=== PATIENT | male | born 1965 | race Caucasian/White ===

== ENCOUNTER 2022-01-04 15:26 | Emergency (ER) | payer OTHER, SELFPAY ==
[2022-01-04 16:32] VITALS: BP 140/81; PULSE 75; RESP 16; TEMP 36.9; O2SAT 96; BMI 23.5
[2022-01-04 16:49] LABS: MANUAL DIFF FLAG NO
[2022-01-04 17:07] LABS: Alanine Aminotransferase 33 U/L (0-40); Albumin Level 4.3 g/dL (3.5-5.0); Alkaline Phosphatase 65 U/L (39-117); Anion Gap 15 (12-20); Aspartate Amino Transferase 23 U/L (5-37); Bilirubin Direct 0.3 mg/dL (0.0-0.5); Bilirubin Total 0.7 mg/dL (0.0-1.0); Blood Urea Nitrogen 16 mg/dL (9-16); Carbon Dioxide 22 mmol/L (22-29); Chloride 107 mmol/L (96-108); Creatinine Clr Calc Pharmacy 99.6; Estimated Glomerular Filt Rate > 60; Glucose Random 109 mg/dL (60-115); Lipase 44 U/L (8-78); Potassium 4.1 mmol/L (3.3-5.1); Sodium 140 mmol/L (135-145); Total Protein 6.9 g/dL (6.5-8.0)
[2022-01-04 17:12] LABS: Basophils Absolute Auto 0.1 X10*3/uL (0.0-0.2); Basophils Percent Auto 0.7 % (0-2); Eosinophils Absolute Auto 0.3 X10*3/uL (0.0-0.4); Eosinophils Percent Auto 3.6 % (0-4); Hematocrit 43.8 % (42.0-52.0); Imm Gran Abs Auto 0.08 X10*3/uL (0.00-0.03); Imm Gran Pct Auto 0.8 % (0.0-0.4); Lymphocytes Absolute Auto 2.5 X10*3/uL (1.2-4.9); Lymphocytes Percent Auto 25.9 % (20-40); Mean Corpuscular HGB Conc 34.2 g/dl (31.0-36.0); Mean Corpuscular Hemoglobin 29.1 pg (27.0-33.0); Mean Platelet Volume 9.9 fL (9.4-12.4); Monocytes Absolute Auto 0.9 X10*3/uL (0.1-1.2); Monocytes Percent Auto 9.2 % (2-11); Neutrophils Absolute Auto 5.7 x10*3/uL (2.0-8.3); Neutrophils Percent Auto 59.8 % (45-73); Platelet Count 220 X10*3/uL (160-400); Red Blood Count 5.15 X10*6/uL (4.60-5.80); Red Cell Distribution Width 12.4 % (11.0-16.0); White Blood Count 9.5 X10*3/uL (4.8-10.8)
== END 2022-01-05 02:25 | disposition left against medical advice (07) ==
PROVIDERS: Emergency Provider Emergency Medicine; PCP Internal Medicine
DX: R10.9 Unspecified abdominal pain (principal); R11.0 Nausea
CPT/HCPCS: 36415; 80053; 82248; 83690; 85025; 99281; 99283

== ENCOUNTER 2022-01-07 08:49 | Emergency (ER) | payer OTHER, SELFPAY ==
[2022-01-07 08:59] VITALS: BP 141/82; PULSE 69; RESP 18; TEMP 36.8; O2SAT 98; BMI 21.2
[2022-01-07 09:16] LABS: MANUAL DIFF FLAG NO
[2022-01-07 09:17] LABS: Basophils Absolute Auto 0.1 X10*3/uL (0.0-0.2); Basophils Percent Auto 0.6 % (0-2); Eosinophils Absolute Auto 0.4 X10*3/uL (0.0-0.4); Eosinophils Percent Auto 5.3 % (0-4); Hematocrit 42.6 % (42.0-52.0); Hemoglobin 14.3 g/dl (14.0-18.0); Imm Gran Abs Auto 0.02 X10*3/uL (0.00-0.03); Imm Gran Pct Auto 0.3 % (0.0-0.4); Lymphocytes Absolute Auto 3.2 X10*3/uL (1.2-4.9); Lymphocytes Percent Auto 41.3 % (20-40); Mean Corpuscular HGB Conc 33.6 g/dl (31.0-36.0); Mean Corpuscular Hemoglobin 28.2 pg (27.0-33.0); Mean Platelet Volume 9.7 fL (9.4-12.4); Monocytes Absolute Auto 0.8 X10*3/uL (0.1-1.2); Monocytes Percent Auto 10.4 % (2-11); Neutrophils Absolute Auto 3.2 x10*3/uL (2.0-8.3); Neutrophils Percent Auto 42.1 % (45-73); Platelet Count 205 X10*3/uL (160-400); Red Blood Count 5.07 X10*6/uL (4.60-5.80); Red Cell Distribution Width 12.3 % (11.0-16.0); White Blood Count 7.7 X10*3/uL (4.8-10.8)
[2022-01-07 09:31] LABS: Anion Gap 15 (12-20); Blood Urea Nitrogen 13 mg/dL (9-16); Calcium 9.1 mg/dL (8.4-10.2); Carbon Dioxide 23 mmol/L (22-29); Chloride 109 mmol/L (96-108); Creatinine Clr Calc Pharmacy 90.3; Estimated Glomerular Filt Rate > 60; Glucose Random 103 mg/dL (60-115); Potassium 4.1 mmol/L (3.3-5.1); Sodium 143 mmol/L (135-145)
[2022-01-07 10:11] LABS: Alanine Aminotransferase 28 U/L (0-40); Albumin Level 4.3 g/dL (3.5-5.0); Alkaline Phosphatase 60 U/L (39-117); Aspartate Amino Transferase 23 U/L (5-37); Bilirubin Direct 0.2 mg/dL (0.0-0.5); Bilirubin Total 0.7 mg/dL (0.0-1.0); Lipase 33 U/L (8-78); Total Protein 6.9 g/dL (6.5-8.0)
--- NOTE | 2022-01-07 11:12 | ED_ITS ---
HPI - General Adult General Chief complaint: Abdominal Pain Stated complaint: stomach pains Time Seen by Provider: 01/07/22 09:39 Source: patient Mode of arrival: ambulatory Limitations: no limitations History of Present Illness HPI narrative: Patient is a 56 year old male presenting to the emergency department today with epigastric pain. Patient states that when he is sitting up or standing, he feels fine. Patient states that when he lays down, he feels this burning come up from his abdomen and esophagus and then he has to sit up and burp. Patient states that sometimes when he has to burp, he vomits as well. Patient denies any current dizziness, lightheadedness, abdominal pain, nausea, vomiting, fever, chills, blurry vision, double vision, loss of vision, chest pain, difficulty breathing, shortness of breath, back pain, night sweats, pain with urination, increased urinary frequency, increased urinary urgency, blood in his urine or stool, syncope or a near syncopal episode, recent trauma or falls, bowel incontinence, bladder incontinence, bowel retention, bladder retention, or any other complaints at this time. Onset (ago): week(s) Severity: mild Severity scale (1-10): 2 Relieving factors: none Exacerbating factors: none Associated symptoms: nausea/vomiting Treatments prior to arrival: none Related Data Previous Rx's Medication Instructions Recorded pantoprazole 40 mg granules 40 mg PO DAILY #30 ea 01/07/22 delayed-release for susp in packet (Protonix) Allergies Allergy/AdvReac Type Severity Reaction Status Date / Time No Known Allergies Allergy Unverified 12/29/19 17:17 Review of Systems Constitutional: Constitutional: Reports no additional constitutional complaints, Denies chills, Denies fever(s) and Denies night sweats Eyes: Eyes: Reports no additional eye complaints, Denies blurry vision, Denies change in vision, Denies diplopia, Denies eye discharge, Denies loss of vision and Denies eye pain ENT: Denies dizziness Cardiovascular: Cardiovascular: Reports no additional cardiovascular complaints, Denies chest pain, Denies lightheadedness, Denies Loss of Consciousness and Denies dyspnea Respiratory: Respiratory: Reports no additional respiratory complaints and Denies dyspnea Gastrointestinal: Gastrointestinal: Reports no additional gastrointestinal complaints, Reports abdominal pain (epigastric but only when laying down), Denies melena, Denies hematochezia, Denies change in bowel habits, Denies change in stool character, Reports nausea and Reports vomiting Genitourinary: Genitourinary: Reports no additional male genitourinary complaints, Denies hematuria, Denies oliguria, Denies difficulty urinating, Denies dysuria, Denies urinary frequency, Denies urinary hesitancy, Denies uri nary incontinence and Denies urinary urgency Musculoskeletal: Musculoskeletal: Reports no additional musculoskeletal complaints, Denies numbness and Denies tingling Neurologic: Denies dizziness, Denies loss of vision, Denies numbness and Denies tingling Psychiatric: Psychiatric: Reports no additional psychiatric complaints Endocrine: Endocrine: Reports no additional endocrine complaints Hematologic/Lymphatic: Hematologic/Lymphatic: Reports no additional hematologic/lymphatic complaints Allergic/Immunologic: Allergic/Immunologic: Reports no additional allergic/immunologic complaints [facility] Past Medical History Attestation statement: The following information was validated with the patient. Source: old records reviewed Social History Social History Advance Directives: No Physical Exam ED Vital Signs: Vital Signs - 24 hr 01/07/22 08:59 Temperature 98.2 F Pulse Rate 69 Respiratory Rate 18 Blood Pressure 141/82 H Pulse Oximetry 98 Oxygen Delivery Method Room Air BMI result Body Mass Index 21.2 Const General: cooperative, no acute distress, alert and awake Nutritional Appearance: well nourished Orientation/consciousness: patient oriented x3 Limitations: no limitations [facility] Head: Yes normal to inspection and Yes atraumatic Ears: hearing grossly normal bilaterally and external ears normal General nose exam: Normal external nose present, no nasal discharge noted and no epistaxis Face and sinus: Yes normal facial exam, No abrasion and No laceration Mouth: Normal oral and palatal mucosa present, no drooling and no muffled voice Eyes General: appearance normal, both eyes and all related structures Periorbital: periorbital findings normal Eyelids: Yes eyelids normal Conjunctivae: conjunctivae normal Pupils: Equal, round and reactive pupils present EOM: EOMs intact bilaterally Neck Neck: Yes normal visual inspection, Yes full ROM and Yes no lymphadenopathy Chest Chest palpation & inspection: normal inspection of the chest Resp Effort & Inspection: normal respiratory effort and able to speak in complete sentences Auscultation: clear to auscultation bilaterally Cardio Rate: regular rate Rhythm: regular rhythm GI Inspection: Yes normal to inspection Palpation (GI): Soft to palpation, not firm, nontender and no guarding Neuro General: patient oriented x3 and moves all extremities Cranial nerves: Yes Equal, round and reactive pupils present Cognition (Neuro): normal cognition Motor exam (neuro): 5/5 motor strength present throughout Sensory Exam: Normal double simultaneous stimulation for sensation Coordination: [id number] test normal Extrem General: Yes normal to inspection, Yes full ROM and Yes capillary refill normal Psych Appearance: grossly normal Mental Status: mental status grossly normal Affect: normal affect Attitude: cooperative Thought process: Normal thought process present Thought content: Normal thought content present Insight: Good insight present (Psych) Medical Decision Making MDM Narrative Medical decision making narrative: Patient is a 56 year old male presenting to the emergency department today with epigastric pain. Patient's physical exam was unremarkable. Patient's blood work was unremarkable. Patient's clinical presentation is most consistent with GERD. I explained my physical exam findings as well as all test results to the patient. I answered all questions asked by the patient. I stressed the importance of the patient taking his medication as prescribed. I stressed the importance of the patient following up with his primary care provider and a GI specialist. I stressed the importance of the patient returning to the emergency department immediately if his symptoms were to worsen or if he were to develop any dizziness, shortness of breath, difficulty breathing, chest pain, blurry vision, loss of vision, nausea, vomiting, abdominal pain, fever, chills, back pain, or any other complaints. Patient verbalized agreement and understanding with this treatment plan and discharge. Medical Records Medical records reviewed: Yes I reviewed the patient's medical records. Lab Data Lab results reviewed: Yes I reviewed the patient's lab results. Result diagrams: 01/07/22 09:12 01/07/22 09:12 Labs: Lab Results 01/07/22 01/07/22 Range/Units 09:12 09:12 WBC 7.7 (4.8-10.8) X10*3/uL RBC 5.07 (4.60-5.80) X10*6/uL Hgb 14.3 (14.0-18.0) g/dl Hct 42.6 (42.0-52.0) % MCV 84.0 (80.0-98.0) fL MCH 28.2 (27.0-33.0) pg MCHC 33.6 (31.0-36.0) g/dl RDW 12.3 (11.0-16.0) % Plt Count 205 (160-400) X10*3/uL MPV 9.7 (9.4-12.4) fL Immature Gran % (Auto) 0.3 (0.0-0.4) % Neut % (Auto) 42.1 L (45-73) % Lymph % (Auto) 41.3 H (20-40) % [place] % (Auto) 10.4 (2-11) % Eos % (Auto) 5.3 H (0-4) % Baso % (Auto) 0.6 (0-2) % Lymph # (Auto) 3.2 (1.2-4.9) X10*3/uL [place] # (Auto) 0.8 (0.1-1.2) X10*3/uL Eos # (Auto) 0.4 (0.0-0.4) X10*3/uL Baso # (Auto) 0.1 (0.0-0.2) X10*3/uL Abs Immat Gran (auto) 0.02 (0.00-0.03) X10*3/uL Absolute Neuts (auto) 3.2 (2.0-8.3) x10*3/uL Absolute Nucleated RBC 0.000 (0.0-0.012) X10*3/uL Nucleated RBC % (auto) 0.0 (0.0-0.2) /100WBC Sodium 143 (135-145) mmol/L Potassium 4.1 (3.3-5.1) mmol/L Chloride 109 H (96-108) mmol/L Carbon Dioxide 23 (22-29) mmol/L Anion Gap 15 (12-20) BUN 13 (9-16) mg/dL Creatinine 0.83 (0.5-1.4) mg/dL Estim Creat Clear Calc 90.3 Estimated GFR > 60 Random Glucose 103 (60-115) mg/dL Calcium 9.1 (8.4-10.2) mg/dL Magnesium 2.0 (1.6-2.6) mg/dL Total Bilirubin 0.7 (0.0-1.0) mg/dL Direct Bilirubin 0.2 (0.0-0.5) mg/dL AST 23 (5-37) U/L ALT 28 (0-40) U/L Alkaline Phosphatase 60 (39-117) U/L Total Protein 6.9 (6.5-8.0) g/dL Albumin 4.3 (3.5-5.0) g/dL Lipase 33 (8-78) U/L Discharge Plan Discharge Clinical Impression: GERD (gastroesophageal reflux disease) Patient Disposition: Home, Self-Care Instructions: Gastroesophageal Reflux Disease (ED) Additional Instructions: Follow up with your primary care provider and a GI specialist. Return to the emergency department immediately if your symptoms worsen or if you develop any dizziness, shortness of breath, difficulty breathing, chest pain, blurry vision, loss of vision, nausea, vomiting, abdominal pain, fever, chills, back pain, or any other complaints. Prescriptions: New pantoprazole [Protonix] [address] for susp in packet 40 mg PO DAILY Qty: 30 0RF Referrals: [facility] [place] [facility] [Provider Group] (Call to establish and follow up with a GI specialist. ) Doug Hitchcock PA [Primary Care Provider] - Interventions: ED Discharge Assessment Last Done: 01/07/22 12:06 Discharge Date/Time: 01/07/22 12:07 Print Language: [place]
[2022-01-07] MEDS: Magnesium Hydrox/Alum Hydrox 30 ML ORAL.SUSP 15 ML PO (12:01)
[2022-01-07] MEDS: Omeprazole 20 MG CAPSULE.DR PO (12:01)
== END 2022-01-07 12:07 | disposition home or self-care (01) ==
PROVIDERS: Physician Assistant Medical; Emergency Provider Emergency Medicine; PCP Physician Assistant Medical
DX: K21.9 Gastro-esophageal reflux disease without esophagitis (principal); R10.13 Epigastric pain; Z79.899 Other long term (current) drug therapy
CPT/HCPCS: 36415; 80048; 80076; 83690; 83735; 85025; 99282; 99283

== ENCOUNTER 2023-04-21 14:42 | Inpatient (IN) | payer OTHER, SELFPAY ==
--- NOTE | ~2023-04-21 | MR_ITS ---
EXAMINATION: MR ABDOMEN WITHOUT AND WITH CONTRAST CLINICAL INFORMATION: Duodenal ulcer. COMPARISON: CT abdomen/pelvis 04/21/2023 TECHNIQUE: MR abdomen was performed without and with use of 6 mL intravenous Gadavist gadolinium contrast. Postcontrast images are performed in multiphase dynamic sequences. Imaging was performed in 3 planes. FINDINGS: LUNG BASES: No pleural or pericardial effusion. LIVER, GALLBLADDER, AND BILIARY TREE: The liver demonstrates decreased signal on opposed phase images. There is geographic fatty infiltration in the periportal region and along the falciform ligament that demonstrates signal loss on opposed phase images. No biliary ductal dilatation is present. The gallbladder is contracted. PANCREAS: Subtle edema in the head of the pancreas. No ductal dilatation. No peripancreatic fluid collection. SPLEEN: Not enlarged. ADRENAL GLANDS: No adrenal mass. KIDNEYS AND URETERS: The kidneys are symmetric in size and enhancement. No hydronephrosis. No perinephric stranding. GASTROINTESTINAL TRACT: Gastric distention. There is marked wall thickening of the duodenal bulb with mucosal enhancement and luminal narrowing. The ampulla appears edematous. ABDOMINAL WALL: No significant hernia is appreciated. LYMPH NODES: No bulky lymphadenopathy. VASCULAR: Normal caliber abdominal aorta. MR/MR abdomen wo/w con IMPRESSION: Marked wall thickening of the duodenal bulb with submucosal edema and mucosal enhancement. The ampulla appears edematous. There is edema in the head of the pancreas possibly on a reactive basis. Hepatic steatosis.
--- NOTE | ~2023-04-21 | CT_ITS ---
EXAMINATION: CT ABDOMEN AND PELVIS WITH CONTRAST CLINICAL INFORMATION: GI bleed. Anemia. Weight loss. COMPARISON: None available. TECHNIQUE: Multidetector volumetric images were obtained from the superior aspect of the liver through the pubic symphysis following administration 85 mL of Omnipaque 350 intravenous contrast as well as oral contrast material. Sagittal and coronal reformatted images were obtained on the technologist's workstation. Oral contrast: No This CT examination was performed using dose optimization techniques as appropriate, variously including the following: *Automated exposure control *Adjustment of mA and/or kV according to patient size (this includes techniques or standardized protocols for targeted exams where dose is matched to indication/reason for exam; i.e. extremities or head) *Use of iterative reconstruction technique DLP: 380 mGy-cm FINDINGS: LUNG BASES: The visualized lung bases are unremarkable. LIVER, GALLBLADDER, AND BILIARY TREE: Within the hepatic parenchyma around the inferior aspect of the falciform ligament and within the hepatic parenchyma around the adjacent left portal vein and portal bifurcation, there is a region of irregular hypoattenuating pancreatic parenchyma which is of uncertain etiology. This measures up to 5.5 cm in diameter and does also extend laterally adjacent to the right main portal vein to a lesser extent. No separate hepatic lesions are identified. Liver is normal in size and contour. The gallbladder is unremarkable with no evidence of radiopaque gallstones, gallbladder wall thickening, or obvious pericholecystic inflammatory changes. PANCREAS: The thickened gastric/proximal duodenal soft tissue produces mild mass effect upon the pancreatic head. Pancreas is otherwise normal in appearance. No ductal dilatation. SPLEEN: Unremarkable. ADRENAL GLANDS: Unremarkable. KIDNEYS AND URETERS: The kidneys are normal in size, shape, and attenuation. No hydronephrosis, hydroureter, or calculi seen. No perinephric stranding. BLADDER: Unremarkable. GASTROINTESTINAL TRACT: There is marked wall thickening at the gastric pylorus with a possible focal ulceration at its lateral margin containing oral contrast material. No extraluminal gas or fluid collections are identified. This wall thickening likely extends into the the duodenal bulb. There is mild surrounding fat stranding. The alignment is otherwise normal in appearance. The small bowel and colon are normal in caliber. Moderate amount of stool throughout the colon. Appendix is normal. No intraperitoneal free fluid or free air. ABDOMINAL WALL: No significant hernia is appreciated. LYMPH NODES: Normal. VASCULAR: Calcific atherosclerosis is present in the abdominal aorta and iliac arteries. No aneurysmal dilatation. PELVIC VISCERA: Unremarkable. OSSEOUS STRUCTURES: Mild degenerative disc disease in the lower lumbar spine. Bilateral chronic L5 pars defects with minimal anterolisthesis of L5 on S1. CT/CT abdomen pelvis w IV con IMPRESSION: 1. Marked wall thickening at the gastric pylorus and duodenal bulb with a possible focal ulceration at the lateral margin of the gastric pylorus. No extraluminal gas or surrounding fluid collections are identified. Consider correlation with endoscopy. 2. A 5.5 cm region of irregular hypoattenuating parenchyma in the left hepatic lobe around the portal vein and portal bifurcation. This is of uncertain etiology, potentially due to focal fatty infiltration. However, an infiltrative lesion is also on the differential, particularly given the proximity to the abnormality at the gastric antrum. Consider further assessment with MRI of the liver with and without contrast.. 3. Moderate amount of stool throughout the colon. 4. Bilateral chronic L5 pars defects with minimal anterolisthesis of L5 on S1. Fleischner guidelines were followed.
[2023-04-21 15:52] VITALS: BP 99/70; PULSE 84; RESP 16; TEMP 36.8; O2SAT 100; BMI 19.8
--- NOTE | 2023-04-21 16:00 | ED_ITS ---
HPI - GI Bleed General Chief complaint: GI Bleed Stated complaint: COVID + Gastrophoresis Anemic Time Seen by Provider: 04/21/23 17:38 Source: patient and family Mode of arrival: ambulatory Limitations: no limitations History of Present Illness HPI Narrative: Patient comes to the emergency room complaining of a low hemoglobin. Patient states that patient has been having epigastric pain, black stool for a month, feeling fatigue, shortness of breath with exertion, lightheadedness, no chest pain and no syncopal episodes. Patient states that he went to see his primary care physician, a urea breath test was ordered which was positive. Patient was informed about his results less than a week ago. Patient has not been started on treatment. Patient states that he was told a few days ago that his hemoglobin was low and he was recommended for him to come to the emergency room. Patient states that when he turned 51 he had a colonoscopy. Patient concerned that in the last 2-3 months he has had a 20 lb weight loss. Patient states that he is not taking any iron or Pepto-Bismol. Patient denies any abdominal pain, no nausea vomiting or diarrhea. Related Data Previous Rx's Medication Instructions Recorded pantoprazole 40 mg granules 40 mg PO DAILY #30 ea 01/07/22 delayed-release for susp in packet (Protonix) Allergies Allergy/AdvReac Type Severity Reaction Status Date / Time No Known Allergies Allergy Verified 04/21/23 20:31 Review of Systems 2 Review of Systems: Constitutional : No Weight loss, No Fever, No Chills, No Night Sweats, complaining of fatigue ENT/Mouth : No Hearing loss, No Ear Pain, No Nasal Congestion, No Sinus Pain, No Hoarseness, No sore throat, No Rhinorrhea, No Swallowing Difficulty Eyes: No Eye Pain, No Swelling, No Redness, No Foreign Body, No Discharge, No Vision Changes Cardiovascular : No Chest Pain, No SOB, No Dyspnea on Exertion, No Orthopnea, No Edema, No Palpitations Respiratory : No Cough, No Sputum, No Wheezing, No Smoke Exposure, No Dyspnea Gastrointestinal : No Nausea, No Vomiting, No Diarrhea, No Constipation, No abdominal Pain, complaining of black stool for 1 month Genitourinary : no irregular bleeding, No Dysuria, No Urinary Frequency, No Hematuria, No Urinary Incontinence, No Urgency, No Flank Pain, No Urinary Flow Changes, No Hesitancy Musculoskeletal : No joint pain, No Myalgias, No Joint Swelling Skin : No Skin Lesions, No rash Neuro : No Weakness, No Numbness, No Paresthesias, No Loss of Consciousness, No Dizziness, No Headache Psych : No Anxiety/Panic, No Depression, No SI/HI/AH/VH, No Social Issues, Heme/Lymph: No Bruising, No Bleeding,No Lymphadenopathy Endocrine : No Polyuria, No Polydipsia, No Temperature Intolerance PMFSH Past Medical History Onset Date is defined in the Problem List Problems that require an onset date and time if occurred within 24 hrs of arrival to the ED Aortic Dissection and Rupture; Neurologic impairment; Cardiopulmonary Arrest; Endotracheal Intubation; Insertion or Replacement of Mechanical Circulatory Assist Device Medical History (Updated 04/21/23 @ 20:29 by Mady Mendieta MD) H. pylori infection Social History Social History Alcohol intake: current Alcohol intake frequency: holidays/special occasions only Smoked in Last 30 Days: Yes Use of substances other than those prescribed or required for medical reasons: No Advance Directives: No Advance Directives Information Provided: No Physical Exam 2 Vital Signs: Vital Signs: Last Vital Signs Temp 98.0 F 04/21/23 20:24 Pulse 81 04/21/23 20:24 Resp 14 04/21/23 20:24 BP 107/63 04/21/23 20:24 Pulse Ox 98 04/21/23 19:20 O2 Del Method Room Air 04/21/23 19:20 BMI result Body Mass Index 19.8 Const: Other: Appearance: Alert. Oriented X3. No acute distress. Eyes: Pupils equal, round and reactive to light. ENT: Pharynx normal. Neck: Normal inspection. Neck supple. No lymph nodes noted. No crepitus CVS: Normal heart rate and rhythm. Pulses normal. Normal S1 and S2 Respiratory: No respiratory distress. Breath sounds normal. No Wheezing. No rales Abdomen: Soft and nontender. No rigidity. No distention. Skin: Skin warm and dry. Pale skin color. Normal skin turgor. Extremities: No lower extremity edema. No Lacerations. No Rash Neuro: Oriented X 3. No motor deficit. No sensory deficit. Moving all extremities. No slurred speech. CN 2 through 12 grossly intact Psych: calm, cooperative, normal affect Course Course Course Narrative: RmCandelaria; 57-year-old male known COVID positive presents to ED rule out GI bleed. Patient having black stool for a long time feeling fatigued. Patient not on blood thinners. Labs occult stool positive. Charge nurse made aware Medications Administered Discontinued Medications Generic Name Dose Route Start Last Admin Trade Name Scotq PRN Reason Stop Dose Admin Bismuth Subsalicylate 1,048 mg 04/21/23 18:31 04/21/23 19:32 Bismuth Subsalicylate 262 Mg Tablet PO 04/21/23 18:32 1,048 mg ONCE ONE Administration Doxycycline Monohydrate 100 mg 04/21/23 18:35 04/21/23 18:47 Doxycycline Monohydrate 100 Mg Capsule PO 04/21/23 18:36 100 mg ONCE ONE Administration Famotidine 20 mg 04/21/23 18:31 04/21/23 18:46 Famotidine 20 Mg Tablet PO 04/21/23 18:32 20 mg ONCE ONE Administration Sodium Chloride 100 mls @ 100 mls/hr 04/21/23 17:57 04/21/23 20:16 Ns IV 04/21/23 18:56 100 mls/hr ONCE ONE Administration Metronidazole 250 mg 04/21/23 18:31 04/21/23 19:32 Metronidazole 250 Mg Tablet PO 04/21/23 18:32 250 mg ONCE ONE Administration Medical Decision Making Medical Decision Making [facility] Narrative: -my interpretation of labs: Patient's hemoglobin and hematocrit are low. Patient's hemoglobin baseline is approximately 14.5. -given patient's symptoms and hemoglobin level, I discussed with the patient that he would benefit from a blood transfusion. Patient has never received blood. I thoroughly discussed with the patient the risks versus benefits of a blood transfusion. Patient is agreeable to go ahead with the blood transfusion. Patient signed the consent. -I discussed the patient with Dr. Alatorre from Gastroenterology, CT scan with p.o. and IV contrast recommended, patient to be admitted for upper endoscopy and colonoscopy -I discussed the patient with our hospitalist Dr. Rebolledo, patient being admitted Differential Diagnosis Differential Diagnoses: The differential diagnosis associated with the presentation includes (Anemia, upper GI bleed, lower GI bleed, GI malignancy) Admission/Observation Consideration of admission/observation: Escalation of care including admission/observation considered Consult Healthcare Provider Management of the patient was discussed with: Hospitalist and Project Buyer Lab Data MDM Lab Attestation statement: I reviewed the patient's lab results. 04/21/23 16:07 04/21/23 16:07 Labs: Lab Results 04/21/23 04/21/23 Range/Units 16:07 18:21 WBC 8.1 (4.8-10.8) X10*3/uL RBC 3.77 L D (4.60-5.80) X10*6/uL Hgb 7.5 L D (14.0-18.0) g/dl Hct 27.0 L D (42.0-52.0) % MCV 71.6 L (80.0-98.0) fL MCH 19.9 L (27.0-33.0) pg MCHC 27.8 L (31.0-36.0) g/dl RDW 15.7 (11.0-16.0) % Plt Count 318 D (160-400) X10*3/uL MPV 8.4 L (9.4-12.4) fL Immature Gran % (Auto) 0.2 (0.0-0.4) % Neut % (Auto) 70.1 (45-73) % Lymph % (Auto) 16.3 L (20-40) % [place] % (Auto) 9.7 (2-11) % Eos % (Auto) 3.1 (0-4) % Baso % (Auto) 0.6 (0-2) % Lymph # (Auto) 1.3 (1.2-4.9) X10*3/uL [place] # (Auto) 0.8 (0.1-1.2) X10*3/uL Eos # (Auto) 0.3 (0.0-0.4) X10*3/uL Baso # (Auto) 0.1 (0.0-0.2) X10*3/uL Abs Immat Gran (auto) 0.02 (0.00-0.03) X10*3/uL Absolute Neuts (auto) 5.7 (2.0-8.3) x10*3/uL Absolute Nucleated RBC 0.000 (0.0-0.012) X10*3/uL Nucleated RBC % (auto) 0.0 (0.0-0.2) /100WBC PT 11.9 (11.1-13.3) SEC INR 1.0 (0.9-1.1) APTT 26.8 (26.0-36.4) SEC Sodium 143 (135-145) mmol/L Potassium 4.5 (3.3-5.1) mmol/L Chloride 109 H (96-108) mmol/L Carbon Dioxide 28 (22-29) mmol/L Anion Gap 11 L (12-20) BUN 13 (9-16) mg/dL Creatinine 0.86 (0.5-1.4) mg/dL Estim Creat Clear Calc 79.9 Estimated GFR > 60 Random Glucose 117 H (60-115) mg/dL Calcium 9.2 (8.4-10.2) mg/dL Total Bilirubin 0.3 (0.0-1.0) mg/dL AST 14 (5-37) U/L ALT 12 (0-40) U/L Alkaline Phosphatase 64 (39-117) U/L Total Protein 6.6 (6.5-8.0) g/dL Albumin 3.6 (3.5-5.0) g/dL Stool Occult Blood NEGATIVE (NEGATIVE) COVID-19 (CLAIRE) Positive A (Negative) COVID-19 Clin Com See Note Influenza Type A (LIZZY) Negative (Negative) Influenza Type B (LIZZY) Negative (Negative) Influenza A & B Note See Note Blood Type A Positive Antibody Screen NEGATIVE Crossmatch See Detail Critical Care Time Critical Care Time Critical Care Time: Yes Total Critical Care Time: 75 Attestation: I have personally provided critical care time. Time includes review of lab data, radiology results, discussion with consultants, and monitoring for potential decompensation. Intervention performed as documented. Discharge Plan Discharge Clinical Impression: Anemia, Acute GI bleeding Patient Disposition: Admitted As Inpatient
[2023-04-21 16:19] LABS: MANUAL DIFF FLAG NO
[2023-04-21 16:20] LABS: Basophils Absolute Auto 0.1 X10*3/uL (0.0-0.2); Basophils Percent Auto 0.6 % (0-2); Eosinophils Absolute Auto 0.3 X10*3/uL (0.0-0.4); Eosinophils Percent Auto 3.1 % (0-4); Hemoglobin 7.5 g/dl (14.0-18.0); Imm Gran Abs Auto 0.02 X10*3/uL (0.00-0.03); Imm Gran Pct Auto 0.2 % (0.0-0.4); Lymphocytes Absolute Auto 1.3 X10*3/uL (1.2-4.9); Lymphocytes Percent Auto 16.3 % (20-40); Mean Corpuscular HGB Conc 27.8 g/dl (31.0-36.0); Mean Corpuscular Hemoglobin 19.9 pg (27.0-33.0); Mean Corpuscular Volume 71.6 fL (80.0-98.0); Mean Platelet Volume 8.4 fL (9.4-12.4); Monocytes Absolute Auto 0.8 X10*3/uL (0.1-1.2); Monocytes Percent Auto 9.7 % (2-11); Neutrophils Absolute Auto 5.7 x10*3/uL (2.0-8.3); Neutrophils Percent Auto 70.1 % (45-73); Platelet Count 318 X10*3/uL (160-400); Red Blood Count 3.77 X10*6/uL (4.60-5.80); Red Cell Distribution Width 15.7 % (11.0-16.0); White Blood Count 8.1 X10*3/uL (4.8-10.8)
[2023-04-21 16:25] LABS: Prothrombin Time 11.9 SEC (11.1-13.3)
[2023-04-21 16:28] LABS: Partial Thromboplastin Time 26.8 SEC (26.0-36.4)
[2023-04-21 16:38] LABS: Alanine Aminotransferase 12 U/L (0-40); Albumin Level 3.6 g/dL (3.5-5.0); Alkaline Phosphatase 64 U/L (39-117); Anion Gap 11 (12-20); Aspartate Amino Transferase 14 U/L (5-37); Bilirubin Total 0.3 mg/dL (0.0-1.0); Blood Urea Nitrogen 13 mg/dL (9-16); Calcium 9.2 mg/dL (8.4-10.2); Carbon Dioxide 28 mmol/L (22-29); Chloride 109 mmol/L (96-108); Creatinine Clr Calc Pharmacy 79.9; Estimated Glomerular Filt Rate > 60; Glucose Random 117 mg/dL (60-115); Potassium 4.5 mmol/L (3.3-5.1); Sodium 143 mmol/L (135-145); Total Protein 6.6 g/dL (6.5-8.0)
[2023-04-21 18:28] LABS: OBS Int Ctl Valid YES; OBS1 NEGATIVE (NEGATIVE)
[2023-04-21 18:39] LABS: COVID-19 Test Positive (Negative); IDNOW Serial# 9DB6401D
[2023-04-21] MEDS: Famotidine 20 MG TABLET PO (18:46)
[2023-04-21] MEDS: Doxycycline Monohydrate 100 MG CAPSULE PO (18:47)
[2023-04-21 18:55] LABS: IDNOW Serial# 08D9AD1C; Influenza A Negative (Negative); Influenza B2 Negative (Negative)
[2023-04-21 19:20] VITALS: BP 107/67; PULSE 68; RESP 14; TEMP 36.7; O2SAT 98
[2023-04-21] MEDS: Bismuth Subsalicylate 262 MG TABLET 1048 MG PO (19:32)
[2023-04-21] MEDS: metroNIDAZOLE 250 MG TABLET PO (19:32)
[2023-04-21 20:06] VITALS: BP 103/53; PULSE 68; RESP 16; TEMP 36.7
--- NOTE | 2023-04-21 20:21 | PC.NURSE ---
Addendum entered by Catih Amanda 04/21/23 20:25: Pt also reporting dark stools. Original Note: This sign writer hand assumed care of this Pt at 1900. Pt A&Ox3, denies any pain. Reports SOB, dizziness and weakness x 1 month, went to see PCP and was told to come to ED. 1st unit of blood started, Pt tolerating well, no SOB, itching, fever, no adverse reactions reported.
[2023-04-21 20:24] VITALS: BP 107/63; PULSE 81; RESP 14; TEMP 36.7
[2023-04-21 22:11] LABS: Magnesium 1.8 mg/dL (1.6-2.6)
[2023-04-21] MEDS: Dextrose 5 % and 0.9 % NaCl 1,000 ML 125 ML IVCONT (22:15)
[2023-04-21 22:23] VITALS: BP 116/73; PULSE 62; RESP 16; TEMP 36.6; O2SAT 199
[2023-04-21] MEDS: PEG 3350/Na Sulf,Bicarb,Cl/KCL 4,000 ML SOLN.RECON 4000 ML PO (22:31)
--- NOTE | 2023-04-21 23:08 | PM.IMHP ---
History of Present Illness Date of Service: 04/21/23 Attending physician on admission: Trino Rebolledo Chief Complaint: Referred to the ED by PCP for anemia and positive H. Pylori breath test. Patient is a 57 year old white male with past medical history of hypertension, hyperlipidemia, GERD, gastroparesis here with his daughter after he was referred to the ER by his PCP. he has been experiencing worsening weakness, generalized malaise, dizziness, exertional dyspnea, 20 lb unintentional weight loss stating that he gets very out of of breath even with minimal exertion. He has also reports passing black formed stool and has been experiencing generalized anterior abdominal pain with associated reflux and a lot of belching. He saw his PCP on Apr 16 for routine follow up and had blood and breath test done where he tested positive for H. Pylori and was found to be anemic. He was therefore called at home today and advised to come to the emergency room where initial work up revealed a hemoglobin of 7.5 g/dl (down from 15.0 g/dl on 01/04/22). Stool for occult blood test done in the ER was negative. He last had a colonoscopy doine when he turned 51 which was normal. Of note, he also reports testing positive for COVID-19 yesterday but has been asymptomatic. He was been started on a blood transfusion and admission requested for further work up. Review of Systems Review of Systems: Yes all other systems are reviewed and are negative [facility] Medical History (Updated 04/22/23 @ 01:00 by Trino Rebolledo MD) Nondiabetic gastroparesis Hyperlipidemia Hypertension, essential H. pylori infection Pertinent family history: Reviewed with the patient and not pertinent to current admission. Social History Alcohol intake: current Alcohol intake frequency: holidays/special occasions only Smoked in Last 30 Days: Yes Use of substances other than those prescribed or required for medical reasons: No Advance Directives: No Advance Directives Information Provided: No Meds Allergies Allergy/AdvReac Type Severity Reaction Status Date / Time No Known Allergies Allergy Verified 04/21/23 20:31 Home Medications Medication Instructions Recorded Confirmed Last Taken Type atorvastatin 20 mg tablet 20 mg PO DAILY 04/21/23 04/21/23 04/21/23 History metoclopramide HCl 5 mg tablet 5 mg PO TIDAC 04/21/23 04/21/23 04/21/23 History pantoprazole 40 mg tablet,delayed 40 mg PO DAILY 04/22/23 04/22/23 Unknown History release Physical Exam Vital Signs and Narrative: Vital Signs: Last Vital Signs Temp 97.9 F 04/21/23 22:23 Pulse 62 04/21/23 22:23 Resp 16 04/21/23 22:23 BP 116/73 04/21/23 22:23 Pulse Ox 199 H 04/21/23 22:23 O2 Del Method Room Air 04/21/23 22:23 BMI result Body Mass Index 19.8 General: Well nourished. Awake, alert and oriented x 4. No apparent distress Eyes: No pallor or jaundice. PERRLA, EOMI HENT: Moist oral mucus membranes. No oropharyngeal lesions. Neck: Supple. No cervical adenopathy. No JVD Cardiovascular: Regular rate and rhythm. Normal heart sounds. No murmurs, rubs or gallops. No JVD. No peripheral edema. Respiratory: Normal respiratory effort with no accessory muscle use. CTAB. Gastrointestinal: Abdomen is soft, non-tender, non-distended. NABS. No hepatosplenomegaly Extremities: No edema. No calf tenderness. Good peripheral pulses Skin: Warm/Dry. No rashes. No mottling. Capillary refill is < 2 seconds Neurological: AAOx4. Intact speech & cognition. Normal gait & balance. CN II - XII grossly intact but not individually tested. No motor or sensory deficits Hematologic: No bleeding. No ecchymosis. No swollen or tender lymph nodes. Psychiatric: Cooperative. Appropriate mood and affect. Results Labs 04/21/23 16:07 04/21/23 16:07 Labs: Laboratory Results - last 24 hr 04/21/23 04/21/23 04/21/23 16:07 18:21 21:50 MCV 71.6 L MCH 19.9 L MCHC 27.8 L RDW 15.7 Plt Count 318 D MPV 8.4 L Immature Gran % (Auto) 0.2 Neut % (Auto) 70.1 Lymph % (Auto) 16.3 L [place] % (Auto) 9.7 Eos % (Auto) 3.1 Baso % (Auto) 0.6 Lymph # (Auto) 1.3 [place] # (Auto) 0.8 Eos # (Auto) 0.3 Baso # (Auto) 0.1 Abs Immat Gran (auto) 0.02 Absolute Neuts (auto) 5.7 Absolute Nucleated RBC 0.000 Nucleated RBC % (auto) 0.0 PT 11.9 INR 1.0 APTT 26.8 Anion Gap 11 L Estim Creat Clear Calc 79.9 Estimated GFR > 60 Random Glucose 117 H Calcium 9.2 Magnesium 1.8 Total Bilirubin 0.3 AST 14 ALT 12 Alkaline Phosphatase 64 Total Protein 6.6 Albumin 3.6 Stool Occult Blood NEGATIVE COVID-19 (CLAIRE) Positive A COVID-19 Clin Com See Note Influenza Type A (LIZZY) Negative Influenza Type B (LIZZY) Negative Influenza A & B Note See Note Blood Type A Positive Antibody Screen NEGATIVE Crossmatch See Detail ECG ECG interpretation date: 04/22/23 ECG interpretation time: 00:51 Prior ECG tracings: available for review Interpretation: NSR at 61 bpm with normal axis and OR interval. No acute ischemic changes Imaging Radiologist's Impressions: CT abdomen pelvis w IV contrast 1. Marked wall thickening at the gastric pylorus and duodenal bulb with a possible focal ulceration at the lateral margin of the gastric pylorus. No extraluminal gas or surrounding fluid collections are identified. Consider correlation with endoscopy. 2. A 5.5 cm region of irregular hypoattenuating parenchyma in the left hepatic lobe around the portal vein and portal bifurcation. This is of uncertain etiology, potentially due to focal fatty infiltration. However, an infiltrative lesion is also on the differential, particularly given the proximity to the abnormality at the gastric antrum. Consider further assessment with MRI of the liver with and without contrast.. 3. Moderate amount of stool throughout the colon. 4. Bilateral chronic L5 pars defects with minimal anterolisthesis of L5 on S1. Assessment and Plan (1) Symptomatic anemia: Status: Acute (2) H. pylori infection: Status: Acute (3) GI hemorrhage: Qualifiers: GI bleed type/associated pathology: gastric ulcer Qualified Code(s): K25.4 - Chronic or unspecified gastric ulcer with hemorrhage Status: Acute Plan 57 year old white male with past medical history of hypertension, hyperlipidemia, GERD, gastroparesis here with: 1. Symptomatic anemia - likely 2/2 upper GI bleeding (possible focal ulceration at the lateral margin of the gastric pylorus) - admit and transfuse 1 unit of PRBC 2. Upper GI bleed - reports passing black stools and found to be anemic - abdominal CT scan with findings concerning for a possible focal ulceration at the lateral margin of the gastric pylorus - consult GI for consideration for EGD in AM - also bowel prep for colonoscopy in AM 3. H. Pylori infection - reportedly with a positive breath test - he received Pepto-Bismol, Flagyl, Doxycycline and Famotidine (?) in the ED - will hold off treatment until after he gets EGD/Colonosopy done 4. Gastroparesis - idiopathic - continue Reglan which he states has provided him with tremendous relief 4. COVID-19 infection - asymptomatic - keep in isolation 5. Hyperlipidemia - resume Atorvastatin 6. GERD - resume Pantoprazole DVT: SCD's CODE STATUS: Full code Admission for at least 2 midnights for management of symptomatic anemia and upper GI hemorrhage Total time managing care of this patient today: 75 minutes. Quality Stroke Does the patient have a stroke diagnosis?: No VTE Prior VTE?: No VTE Risk Level:: Medical - moderate - high VTE Device Contraindication: N/A - Device Ordered VTE Drug Contraindication: Treatment Not Indicated
--- NOTE | 2023-04-21 23:20 | ECG_ITS ---
Test Reason : RYTHM CHANGE Blood Pressure : / mmHG Vent. Rate : 061 BPM Atrial Rate : 061 BPM P-R Int : 144 ms QRS Dur : 094 ms QT Int : 396 ms P-R-T Axes : 071 047 042 degrees QTc Int : 398 ms Normal sinus rhythm Normal ECG When compared with ECG of 16-JUN-2019 08:46, No significant change was found Referred By: Mady Mendieta Electronically Signed By:JAY BRANHAM MD
--- NOTE | 2023-04-21 23:21 | PC.NURSE ---
ekg for rhythem check, pt denies pain, no sob, ekg and troponin stat. dr zapata advised due to provider is in with a cardiac arrest pt.
[2023-04-21 23:27] VITALS: BP 106/66; PULSE 62; RESP 14; TEMP 36.8
[2023-04-21] MEDS: Diatrizoate Meglumine, Sodium 30 ML SOLUTION PO (23:38)
[2023-04-21] MEDS: iohexoL 350 MG/ML 100 ML INFUS..BTL 85 ML IV (23:56)
[2023-04-22] VITALS (9 sets, daily range): BP systolic 90–120; BP diastolic 55–72; PULSE 57–460; RESP 15–20; TEMP 36.1–36.7; O2SAT 97–100
[2023-04-22 00:06] LABS: Troponin-I High Sensitivity < 2.7 ng/L (<3.5-35.0)
[2023-04-22] MEDS: 0.9 % Sodium Chloride Flush 3 ML SYRINGE IVFLUSH ×4 (00:32→23:57)
[2023-04-22 00:46] LABS: Iron 12 mcg/dL (45-160); Percent Iron Saturation 4 % (15-50); Total Iron Binding Capacity 332 mcg/dL (228-428); Unsaturated Iron Binding 320 ug/dL
[2023-04-22 01:06] LABS: Ferritin 7 ng/mL (20-250)
[2023-04-22] MEDS: Dextrose 5 % and 0.9 % NaCl 1,000 ML 125 ML IVCONT ×2 (05:31→21:24)
--- NOTE | 2023-04-22 06:03 | PM.GICN ---
History of Present Illness Data of Consult Service Date: 04/22/23 Primary Care Provider: VINITA Morrison HPI Reason for consult: anemia 57 year old male with past medical history of hypertension, hyperlipidemia, GERD, gastroparesis been assessed for anemia. He has noted increased fatigue and tiredness and was advsied to come to ED after PCP checked HGB and it was low with recheck here revealing HGB 7.5 g/dl (down from 15.0 g/dl on 01/04/22). He also admits to losing weight over several months of about 20 lbs along with post prandial pain and discomfort. He also noted intermittent burning pain in upper abdomen radiating into the lower abdomen and sides but not had this for some time. PCP did check for h pylori and this was pos. He also noted darer stools on and off but no rectal bleeding He denies alcohol use, and no reg use of nsaids. Review of Systems Review of Systems: Constitutional : + Weight loss, No Fever, No Chills ENT/Mouth : No sore throat, No Rhinorrhea Eyes: No Swelling, No Redness Cardiovascular : No Chest Pain, + SOB, No Edema Respiratory : No Cough, No Sputum, No Wheezing Gastrointestinal : see HPI Genitourinary : NO Dysuria, No Urinary Frequency, No Hematuria, No Urgency Musculoskeletal : No joint pain, No Myalgias, No Joint Swelling Skin : No Skin Lesions, No rash Neuro : + Weakness, No Numbness, No Dizziness, No Headache Psych : No Anxiety/Panic, No Depression Heme/Lymph: No Bruising, No Lymphadenopathy Endocrine : No Polyuria, No Polydipsia All other systems reviewed and are negative. [facility] Past Medical History Medical History (Updated 04/22/23 @ 14:05 by Mando Alatorre MD) Nondiabetic gastroparesis Hyperlipidemia Hypertension, essential H. pylori infection Family History Pertinent family history: no fh of ulcers or stomach ca Social History Social History Household Members: Family Housing: House Do you presently have visiting nurse or other home services: No Alcohol intake: current Alcohol intake frequency: holidays/special occasions only Patient Tobacco Use Status: Never used Tobacco service: No Meds Allergies Allergy/AdvReac Type Severity Reaction Status Date / Time No Known Allergies Allergy Verified 04/21/23 20:31 Active Medications: Current Medications Acetaminophen (Acetaminophen 325 Mg Tablet) 650 mg PO Q6H PRN PRN Reason: Pain, Mild (Pain Scale 1-3) Al Hydroxide/Mg Hydroxide (Magnesium Hydrox/Alum Hydrox 30 Ml Oral.Susp) 30 ml PO Q4H PRN PRN Reason: Heartburn/Nausea Atorvastatin Calcium (Atorvastatin Calcium 20 Mg Tablet) 20 mg PO DAILY [facility] Dextrose/Sodium Chloride (D5ns) 1,000 mls @ 125 mls/hr IVCONT .Q8H [facility] Last Admin: 04/22/23 05:31 Dose: 125 mls/hr Melatonin (Melatonin 3 Mg Tablet) 6 mg PO BEDTIME PRN PRN Reason: Insomnia Metoclopramide HCl (Metoclopramide Hcl 5 Mg Tablet) 5 mg PO TIDAC [facility] Morphine Sulfate (Morphine Sulfate 4 Mg/Ml Cartridge) 2 mg IVPUSH Q6H PRN; Protocol PRN Reason: Pain, Severe (Pain Scale 7-10) Omeprazole (Omeprazole 20 Mg Capsule.Dr) 20 mg PO DAILY [facility] Ondansetron HCl (Ondansetron Hcl 4 Mg/2 Ml Vial) 4 mg IVPUSH Q8H PRN PRN Reason: Nausea and Vomiting Oxycodone HCl (Oxycodone Hcl Immed Release 5 Mg Tablet) 5 mg PO Q6H PRN PRN Reason: Pain, Severe (Pain Scale 7-10) Sodium Chloride (0.9 % Sodium Chloride Flush 3 Ml Syringe) 3 ml IVFLUSH QSHIFT [facility] Last Admin: 04/22/23 00:32 Dose: 3 ml Home Medications Medication Instructions Recorded Confirmed Last Taken Type atorvastatin 20 mg tablet 20 mg PO DAILY 04/21/23 04/21/23 04/21/23 History metoclopramide HCl 5 mg tablet 5 mg PO TIDAC 04/21/23 04/21/23 04/21/23 History Physical Exam Vital Signs: Vital Signs: Last Vital Signs Temp 97.9 F 04/22/23 03:44 Pulse 61 04/22/23 03:44 Resp 18 04/22/23 03:44 BP 110/72 04/22/23 03:44 Pulse Ox 199 H 04/21/23 22:23 O2 Del Method Room Air 04/21/23 22:23 BMI result Body Mass Index 19.8 EXAM: GENERAL: The patient is thin VITAL SIGNS:see workflow HEENT: Nonicteric sclerae, PERRLA, EOMI. Oropharynx clear. Moist mucous membranes. Conjunctivae appear well perfused. No thyroid mass. CHEST: Chest wall is nontender. HEART: Regular rate and rhythm without murmurs. LUNGS: Clear to auscultation bilaterally. ABDOMEN: Soft, positive bowel sounds, nontender, no organomegaly.no flank tenderness SKIN: No rash, no excessive bruising, petechiae, or purpura. NEUROLOGIC: Cranial nerves II-XII intact without motor/sensory deficit. Psych: Appearance: grossly normal Results Labs 04/22/23 06:23 04/22/23 06:22 Labs: Short CBC 04/21/23 Range/Units 16:07 WBC 8.1 (4.8-10.8) X10*3/uL Hgb 7.5 L D (14.0-18.0) g/dl Hct 27.0 L D (42.0-52.0) % Plt Count 318 D (160-400) X10*3/uL BMP 04/21/23 16:07 Sodium 143 Potassium 4.5 Chloride 109 H Carbon Dioxide 28 BUN 13 Creatinine 0.86 Calcium 9.2 Liver Function 04/21/23 Range/Units 16:07 Total Bilirubin 0.3 (0.0-1.0) mg/dL AST 14 (5-37) U/L ALT 12 (0-40) U/L Alkaline Phosphatase 64 (39-117) U/L Albumin 3.6 (3.5-5.0) g/dL Imaging CT scan - abdomen: My impression: thickened stomach, hypoattenuated liver surface adjacent to stomach Radiologist's impression: 1. Marked wall thickening at the gastric pylorus and duodenal bulb with a possible focal ulceration at the lateral margin of the gastric pylorus. No extraluminal gas or surrounding fluid collections are identified. Consider correlation with endoscopy. 2. A 5.5 cm region of irregular hypoattenuating parenchyma in the left hepatic lobe around the portal vein and portal bifurcation. This is of uncertain etiology, potentially due to focal fatty infiltration. However, an infiltrative lesion is also on the differential, particularly given the proximity to the abnormality at the gastric antrum. Consider further assessment with MRI of the liver with and without contrast.. 3. Moderate amount of stool throughout the colon. 4. Bilateral chronic L5 pars defects with minimal anterolisthesis of L5 on S1. Assessment and Plan (1) Anemia: Qualifiers: Iron deficiency anemia type: chronic blood loss Anemia type: iron deficiency Qualified Code(s): D50.0 - Iron deficiency anemia secondary to blood loss (chronic) Status: Acute (2) H. pylori infection: Status: Acute Plan 1/ Acute on chronic anemia possibly from an ulcer, vs neoplasia 2/ abn liver imaging with hypoattenuated areas, adjacent to area of concern in upper GI tract, could be inflammation or neoplasia PLAN: 1/ PPI 2/ EGD today for further assessment 3/ MRI of liver Procedures Date of Service Date of Service: 04/22/23
[2023-04-22 06:41] LABS: MANUAL DIFF FLAG NO
[2023-04-22 06:44] LABS: Basophils Absolute Auto 0.1 X10*3/uL (0.0-0.2); Basophils Percent Auto 0.8 % (0-2); Eosinophils Absolute Auto 0.3 X10*3/uL (0.0-0.4); Eosinophils Percent Auto 5.3 % (0-4); Hematocrit 30.1 % (42.0-52.0); Hemoglobin 9.1 g/dl (14.0-18.0); Imm Gran Abs Auto 0.02 X10*3/uL (0.00-0.03); Imm Gran Pct Auto 0.3 % (0.0-0.4); Lymphocytes Absolute Auto 1.6 X10*3/uL (1.2-4.9); Lymphocytes Percent Auto 26.2 % (20-40); Mean Corpuscular HGB Conc 30.2 g/dl (31.0-36.0); Mean Corpuscular Hemoglobin 22.8 pg (27.0-33.0); Mean Corpuscular Volume 75.3 fL (80.0-98.0); Mean Platelet Volume 8.7 fL (9.4-12.4); Monocytes Absolute Auto 0.6 X10*3/uL (0.1-1.2); Monocytes Percent Auto 9.7 % (2-11); Neutrophils Absolute Auto 3.6 x10*3/uL (2.0-8.3); Neutrophils Percent Auto 57.7 % (45-73); Platelet Count 245 X10*3/uL (160-400); Red Cell Distribution Width 18.7 % (11.0-16.0); White Blood Count 6.2 X10*3/uL (4.8-10.8)
--- NOTE | 2023-04-22 06:47 | PC.NURSE ---
Pt awake most of night working on drinking gavilyte. Pt has not had BM as of yet. Pt denies any SOB or CP.
[2023-04-22 07:12] LABS: Anion Gap 14 (12-20); Blood Urea Nitrogen 11 mg/dL (9-16); Calcium 8.4 mg/dL (8.4-10.2); Carbon Dioxide 23 mmol/L (22-29); Chloride 110 mmol/L (96-108); Cholesterol 124 mg/dL (<200); Creatinine Clr Calc Pharmacy 110.9; Estimated Glomerular Filt Rate > 60; Glucose Random 103 mg/dL (60-115); HDL Cholesterol 38 mg/dL (>40); LDL Cholesterol Calculated 69 mg/dL (<100); Sodium 143 mmol/L (135-145); Triglycerides 85 mg/dL (<150)
[2023-04-22] MEDS: Metoclopramide HCl 5 MG TABLET PO ×3 (07:51→17:42)
--- NOTE | 2023-04-22 08:01 | PC.NURSE ---
admission worksheet completed. transport notified at this time.
--- NOTE | 2023-04-22 08:17 | PC.NURSE ---
pt speaking w/ gastroentereologist at this time. morning medication administered. pt awaiting transportation at this time.
[2023-04-22] MEDS: Omeprazole 20 MG CAPSULE.DR PO (08:18)
[2023-04-22] MEDS: Atorvastatin Calcium 20 MG TABLET PO (08:18)
--- NOTE | 2023-04-22 08:21 | PHA.MEDREC ---
Pharmacy Consult ? Medication Reconciliation Pharmacy has completed the medication reconciliation. Spoke to patient and confirmed medication list.
--- NOTE | 2023-04-22 09:12 | PC.NURSE ---
Patient arrived to the floor on IV fluids running through IV gauge 20 in right AC, on assessment nurses aid Danielle marshall IV guage 22 in left arm was infiltrated with noticeable swelling to surrounding tissue, IV removed, hot pack given, patient had no c/o of discomfort
--- NOTE | 2023-04-22 10:50 | P.PNIM_ITS ---
Subjective Subjective Date of Service: 04/22/23 Interval History: Seen and evaluated this morning Denies any fever or chills No SOB reports black stool Hb improved to 9.1 after transfusion Review of Systems Review of Systems: Yes all other systems are reviewed and are negative Physical Exam 2 Vital Signs: Vital Signs: Last Vital Signs Temp 97.3 F 04/22/23 09:21 Pulse 61 04/22/23 09:21 Resp 20 04/22/23 09:21 BP 120/67 04/22/23 09:21 Pulse Ox 100 04/22/23 09:21 O2 Del Method Room Air 04/22/23 09:21 BMI result Body Mass Index 19.8 Const: Other: Constitutional : Awake, interactive, not in distress Neck : Normal inspection, Supple Cardiovascular : RRR, no JVP, no lower extremity edema Respiratory : good bilateral air entry, no crackles, wheezes or rhonchi Gastrointestinal: soft, lax, Normal bowel sounds, Non tender Skin : Warm, Dry Neurological : Alert & oriented x3, No focal deficit Objective Data Active Medications Acetaminophen (Acetaminophen 325 Mg Tablet) 650 mg PO Q6H PRN PRN Reason: Pain, Mild (Pain Scale 1-3) Al Hydroxide/Mg Hydroxide (Magnesium Hydrox/Alum Hydrox 30 Ml Oral.Susp) 30 ml PO Q4H PRN PRN Reason: Heartburn/Nausea Atorvastatin Calcium (Atorvastatin Calcium 20 Mg Tablet) 20 mg PO DAILY [facility] Last Admin: 04/22/23 08:18 Dose: 20 mg Documented By: SAVANNAH Dextrose/Sodium Chloride (D5ns) 1,000 mls @ 125 mls/hr IVCONT .Q8H [facility] Last Admin: 04/22/23 05:31 Dose: 125 mls/hr Documented By: FARZAD Melatonin (Melatonin 3 Mg Tablet) 6 mg PO BEDTIME PRN PRN Reason: Insomnia Metoclopramide HCl (Metoclopramide Hcl 5 Mg Tablet) 5 mg PO TIDAC [facility] Last Admin: 04/22/23 07:51 Dose: 5 mg Documented By: SAVANNAH Morphine Sulfate (Morphine Sulfate 4 Mg/Ml Cartridge) 2 mg IVPUSH Q6H PRN; Protocol PRN Reason: Pain, Severe (Pain Scale 7-10) Omeprazole (Omeprazole 20 Mg Capsule.) 20 mg PO DAILY [facility] Last Admin: 04/22/23 08:18 Dose: 20 mg Documented By: SAVANNAH Ondansetron HCl (Ondansetron Hcl 4 Mg/2 Ml Vial) 4 mg IVPUSH Q8H PRN PRN Reason: Nausea and Vomiting Oxycodone HCl (Oxycodone Hcl Immed Release 5 Mg Tablet) 5 mg PO Q6H PRN PRN Reason: Pain, Severe (Pain Scale 7-10) Sodium Chloride (0.9 % Sodium Chloride Flush 3 Ml Syringe) [facility] Last Admin: 04/22/23 07:51 Dose: 3 ml Documented By: SAVANNAH Labs 04/22/23 06:23 04/22/23 06:22 Labs: Laboratory Results - last 24 hr 04/21/23 04/21/23 04/21/23 16:07 18:21 21:50 MCV 71.6 L MCH 19.9 L MCHC 27.8 L RDW 15.7 Plt Count 318 D MPV 8.4 L Immature Gran % (Auto) 0.2 Neut % (Auto) 70.1 Lymph % (Auto) 16.3 L [place] % (Auto) 9.7 Eos % (Auto) 3.1 Baso % (Auto) 0.6 Lymph # (Auto) 1.3 [place] # (Auto) 0.8 Eos # (Auto) 0.3 Baso # (Auto) 0.1 Abs Immat Gran (auto) 0.02 Absolute Neuts (auto) 5.7 Absolute Nucleated RBC 0.000 Nucleated RBC % (auto) 0.0 PT 11.9 INR 1.0 APTT 26.8 Anion Gap 11 L Estim Creat Clear Calc 79.9 Estimated GFR > 60 Random Glucose 117 H Calcium 9.2 Magnesium 1.8 Iron 12 L TIBC 332 % Saturation 4 L Unsat Iron Binding 320 Ferritin 7 L Total Bilirubin 0.3 AST 14 ALT 12 Alkaline Phosphatase 64 Total Protein 6.6 Albumin 3.6 Triglycerides Cholesterol LDL Cholesterol, Calc HDL Cholesterol TSH Stool Occult Blood NEGATIVE COVID-19 (CLAIRE) Positive A COVID-19 Clin Com See Note Influenza Type A (LIZZY) Negative Influenza Type B (LIZZY) Negative Influenza A & B Note See Note Blood Type A Positive Antibody Screen NEGATIVE Crossmatch See Detail 04/22/23 04/22/23 06:22 06:23 MCV 75.3 L MCH 22.8 L MCHC 30.2 L RDW 18.7 H Plt Count 245 MPV 8.7 L Immature Gran % (Auto) 0.3 Neut % (Auto) 57.7 Lymph % (Auto) 26.2 [place] % (Auto) 9.7 Eos % (Auto) 5.3 H Baso % (Auto) 0.8 Lymph # (Auto) 1.6 [place] # (Auto) 0.6 Eos # (Auto) 0.3 Baso # (Auto) 0.1 Abs Immat Gran (auto) 0.02 Absolute Neuts (auto) 3.6 Absolute Nucleated RBC 0.000 Nucleated RBC % (auto) 0.0 PT INR APTT Anion Gap 14 Estim Creat Clear Calc 110.9 Estimated GFR > 60 Random Glucose 103 Calcium 8.4 D Magnesium Iron TIBC % Saturation Unsat Iron Binding Ferritin Total Bilirubin AST ALT Alkaline Phosphatase Total Protein Albumin Triglycerides 85 Cholesterol 124 LDL Cholesterol, Calc 69 HDL Cholesterol 38 L TSH 1.70 Stool Occult Blood COVID-19 (CLAIRE) COVID-19 Clin Com Influenza Type A (LIZZY) Influenza Type B (LIZZY) Influenza A & B Note Blood Type Antibody Screen Crossmatch Assessment and Plan (1) GI hemorrhage: Status: Acute (2) Symptomatic anemia: Status: Acute (3) Acute GI bleeding: Status: Acute Plan 57 year old white male with past medical history of hypertension, hyperlipidemia, GERD, gastroparesis here with: # acute on chronic blood loss symptomatic anemia Likely 2/2 upper GI bleeding (possible focal ulceration at the lateral margin of the gastric pylorus) Hb 9.1 after [address] unit of PRBC abdominal CT scan with findings concerning for a possible focal ulceration at the lateral margin of the gastric pylorus GI for EGD this afternoon and bowel prep for colonoscopy # Hx H. Pylori infection positive breath test received Pepto-Bismol, Flagyl, Doxycycline and Famotidine (?) in the ED hold off treatment until after he gets EGD/Colonosopy done # Gastroparesis idiopathic continue Reglan which he states has provided him with tremendous relief # COVID-19 infection asymptomatic, keep in isolation # Hyperlipidemia resume Atorvastatin GERD # resume Pantoprazole DVT: SCD's CODE STATUS: Full code Admission for overnight for management of symptomatic anemia and upper GI hemorrhage pending endoscopies results Quality Stroke Does the patient have a stroke diagnosis?: No VTE Prior VTE?: No VTE Risk Level:: Medical - moderate - high VTE Device Contraindication: N/A - Device Ordered VTE Drug Contraindication: Treatment Not Indicated
--- NOTE | 2023-04-22 13:18 | MHC.CM.PN ---
Pt lives at home with his , self-care. Pts daughter will transport him home at D/C. PCP: Dr. Doug Hitchcock
--- NOTE | 2023-04-22 14:08 | MHC.SHP ---
Pre-Procedural Eval Section A Date of Service: 04/22/23 The patient is an INPATIENT: Yes The History & Physical has been completed within 30 days and I have reviewed it.: Yes Section B Chief Complaint: symptomatic anemia Allergies: Allergies Allergy/AdvReac Type Severity Reaction Status Date / Time No Known Allergies Allergy Verified 04/21/23 20:31 Plan Diagnosis/Plan: Unchanged I have reviewed the history and physical and performed a pertinent physical examination on my patient. No changes have occurred unless specified. Time Spent With Patient Time: Total time managing care of this patient today ____ minutes.
--- NOTE | 2023-04-22 14:08 | W.PM.OPN ---
Operative Note Operative Note Date of Service: 04/22/23 Narrative: Procedure Description: EGD Indication: abn imaging, anemia Anesthesia: MAC FLEXIBLE TRANSORAL UPPER GASTROINTESTINAL ENDOSCOPY UPPER ENDOSCOPY Consent: Indications for the procedure and potential complications of bleeding, perforation, reaction to medications and missed diagnosis were discussed with the patient and informed consent was obtained. Instrument: Olympus GIF H 190 J mid size upper endoscope Monitoring: Vital signs and clinical assessment, continuous EKG monitoring, Pulse oximetry, Carbon Dioxide monitoring and blood pressure monitoring were done throughout the procedure. Procedure: The patient was placed in the left lateral decubitis position and pre-procedure medications were administered and a bite block was placed. The endoscope was inserted into the mouth and advanced under direct vision to the third part of duodenum. A careful inspection was made as the upper endoscope was withdrawn including a retroflexed examination of the proximal stomach; Findings and interventions are described below. Findings: Larynx:normal Esophagus: GE junction at 38 cm, diaphragm hiatus at 38 cm, no varices or esophagitis. Stomach: Patchy gastric erythema. Biopsies were obtained. Grade 2 flap valve on retroflexed examination of the cardia. Duodenum: edema and macerated mucosa with superficial ulcerations in the distal bulb with some dried blood. It was difficult to pass the scope thru, bx were taken from the bulb and second part in separate jars. Intervention: Biopsies as noted above Impression/Findings: duodenal ulceration gastritis gastric outlet obstruction PLAN: pureed diet with small portions, protein shakes H pylori treatment and cont with PPI thereafter for at least 3 months repeat EGD in 3 months if rebleeds might need embolization by IR MRI liver
--- NOTE | 2023-04-22 14:48 | HO.ANESPROP2 ---
[facility] Active Problems Active Problems: All Active Problems (Updated 04/22/23 @ 14:05 by Mando Alatorre MD) GI hemorrhage (Acute) Symptomatic anemia (Acute) Acute GI bleeding (Acute) Anemia (Acute) H. pylori infection (Acute) Past Medical History Medical History (Updated 04/22/23 @ 14:05 by Mando Alatorre MD) Nondiabetic gastroparesis Hyperlipidemia Hypertension, essential H. pylori infection Social History Social History Household Members: Family Housing: House Do you presently have visiting nurse or other home services: No Alcohol intake: current Alcohol intake frequency: holidays/special occasions only Patient Tobacco Use Status: Never used Tobacco service: No Meds Allergies Allergy/AdvReac Type Severity Reaction Status Date / Time No Known Allergies Allergy Verified 04/21/23 20:31 Active Medications: Current Medications Acetaminophen (Acetaminophen 325 Mg Tablet) 650 mg PO Q6H PRN PRN Reason: Pain, Mild (Pain Scale 1-3) Al Hydroxide/Mg Hydroxide (Magnesium Hydrox/Alum Hydrox 30 Ml Oral.Susp) 30 ml PO Q4H PRN PRN Reason: Heartburn/Nausea Atorvastatin Calcium (Atorvastatin Calcium 20 Mg Tablet) 20 mg PO DAILY [facility] Last Admin: 04/22/23 08:18 Dose: 20 mg Dextrose/Sodium Chloride (D5ns) 1,000 mls @ 125 mls/hr IVCONT .Q8H [facility] Last Admin: 04/22/23 14:32 Dose: Not Given Melatonin (Melatonin 3 Mg Tablet) 6 mg PO BEDTIME PRN PRN Reason: Insomnia Metoclopramide HCl (Metoclopramide Hcl 5 Mg Tablet) 5 mg PO TIDAC [facility] Last Admin: 04/22/23 11:40 Dose: 5 mg Morphine Sulfate (Morphine Sulfate 4 Mg/Ml Cartridge) 2 mg IVPUSH Q6H PRN; Protocol PRN Reason: Pain, Severe (Pain Scale 7-10) Omeprazole (Omeprazole 20 Mg Capsule.Dr) 20 mg PO DAILY [facility] Last Admin: 04/22/23 08:18 Dose: 20 mg Ondansetron HCl (Ondansetron Hcl 4 Mg/2 Ml Vial) 4 mg IVPUSH Q8H PRN PRN Reason: Nausea and Vomiting Oxycodone HCl (Oxycodone Hcl Immed Release 5 Mg Tablet) 5 mg PO Q6H PRN PRN Reason: Pain, Severe (Pain Scale 7-10) Sodium Chloride (0.9 % Sodium Chloride Flush 3 Ml Syringe) [facility] Last Admin: 04/22/23 07:51 Dose: 3 ml Home Medications Medication Instructions Recorded Confirmed Last Taken Type atorvastatin 20 mg tablet 20 mg PO DAILY 04/21/23 04/21/23 04/21/23 History metoclopramide HCl 5 mg tablet 5 mg PO TIDAC 04/21/23 04/21/23 04/21/23 History Exam Height,Weight and Vital Signs: Height 5 ft 8 in Weight 58.967 kg Last Vital Signs Temp 97.3 F 04/22/23 09:21 Pulse 61 04/22/23 09:21 Resp 20 04/22/23 09:21 BP 120/67 04/22/23 09:21 Pulse Ox 100 04/22/23 09:21 O2 Del Method Room Air 04/22/23 09:21 Pertinent Lab Results Pertinent Lab Results: Laboratory Tests 04/21/23 04/21/23 04/21/23 16:07 18:21 21:50 WBC 8.1 RBC 3.77 L D Hgb 7.5 L D Hct 27.0 L D MCV 71.6 L MCH 19.9 L MCHC 27.8 L RDW 15.7 Plt Count 318 D MPV 8.4 L Immature Gran % (Auto) 0.2 Neut % (Auto) 70.1 Lymph % (Auto) 16.3 L [place] % (Auto) 9.7 Eos % (Auto) 3.1 Baso % (Auto) 0.6 Lymph # (Auto) 1.3 [place] # (Auto) 0.8 Eos # (Auto) 0.3 Baso # (Auto) 0.1 Abs Immat Gran (auto) 0.02 Absolute Neuts (auto) 5.7 Absolute Nucleated RBC 0.000 Nucleated RBC % (auto) 0.0 PT 11.9 INR 1.0 APTT 26.8 Sodium 143 Potassium 4.5 Chloride 109 H Carbon Dioxide 28 Anion Gap 11 L BUN 13 Creatinine 0.86 Estim Creat Clear Calc 79.9 Estimated GFR > 60 Random Glucose 117 H Calcium 9.2 Magnesium 1.8 Iron 12 L TIBC 332 % Saturation 4 L Unsat Iron Binding 320 Ferritin 7 L Total Bilirubin 0.3 AST 14 ALT 12 Alkaline Phosphatase 64 Troponin I High Sens Total Protein 6.6 Albumin 3.6 Triglycerides Cholesterol LDL Cholesterol, Calc HDL Cholesterol TSH Stool Occult Blood NEGATIVE COVID-19 (CLAIRE) Positive A COVID-19 Clin Com See Note Influenza Type A (LIZZY) Negative Influenza Type B (LIZZY) Negative Influenza A & B Note See Note Blood Type A Positive Antibody Screen NEGATIVE Crossmatch See Detail 04/21/23 04/22/23 04/22/23 23:39 06:22 06:23 WBC 6.2 RBC 4.00 L Hgb 9.1 L D Hct 30.1 L MCV 75.3 L MCH 22.8 L MCHC 30.2 L RDW 18.7 H Plt Count 245 MPV 8.7 L Immature Gran % (Auto) 0.3 Neut % (Auto) 57.7 Lymph % (Auto) 26.2 [place] % (Auto) 9.7 Eos % (Auto) 5.3 H Baso % (Auto) 0.8 Lymph # (Auto) 1.6 [place] # (Auto) 0.6 Eos # (Auto) 0.3 Baso # (Auto) 0.1 Abs Immat Gran (auto) 0.02 Absolute Neuts (auto) 3.6 Absolute Nucleated RBC 0.000 Nucleated RBC % (auto) 0.0 PT INR APTT Sodium 143 Potassium 4.0 Chloride 110 H Carbon Dioxide 23 Anion Gap 14 BUN 11 Creatinine 0.62 Estim Creat Clear Calc 110.9 Estimated GFR > 60 Random Glucose 103 Calcium 8.4 D Magnesium Iron TIBC % Saturation Unsat Iron Binding Ferritin Total Bilirubin AST ALT Alkaline Phosphatase Troponin I High Sens < 2.7 Total Protein Albumin Triglycerides 85 Cholesterol 124 LDL Cholesterol, Calc 69 HDL Cholesterol 38 L TSH 1.70 Stool Occult Blood COVID-19 (CLAIRE) COVID-19 Clin Com Influenza Type A (LIZZY) Influenza Type B (LIZZY) Influenza A & B Note Blood Type Antibody Screen Crossmatch Airway Mallampati Class: II TM Dist: >3cm Neck ROM: Full Denture: Upper and Lower Heart: rrr Lungs: cta
--- NOTE | 2023-04-22 15:22 | P.CDIM_ITS ---
PROVIDER RESPONSE TEXT: To clarify, the appropriate diagnosis supported by the clinical indicators: Underweight QUERY TEXT: PHYSICIAN'S DOCUMENTATION REQUEST Date of Query: 04/22/2023 12:21 PM EST Patient Name: Rodney Dawn Admit Date: 04/22/2023 Dear Ilene Bob, A review of the medical record indicates additional documentation may be needed. Please review below and update the documentation accordingly. Clinical Indicators: BMI: 19.8 5ft 8in in height 58.967kg If possible, please provide an associated diagnosis related to the abnormal BMI, such as: Underweight Weight loss Other Other (explain) Clinically unable to determine (explain) Thank you, Erum Gonzalez, CCS, CDIS Use of terms such as suspected, likely, concern for, or probable (associated with a specific diagnosi s that is being evaluated, monitored, or treated as if it exists) are acceptable and can be coded in the inpatient se tting, when documented at the time of discharge. Please use your independent medical judgment in providing your response. THIS QUERY IS PART OF THE PERMANENT MEDICAL RECORD
--- NOTE | 2023-04-22 15:35 | PC.NURSE ---
patient recovered in o.r. room 7; report received from procedure team, patient communicating needs, questions asked and answered, monitored till aldrette clear, report called to floor nurse pt. bed cleaned rails, mask applied to patient, transported without incident with floor nurse at bedside.
[2023-04-23] VITALS: BP 108/64; PULSE 60; RESP 18; TEMP 36.3; O2SAT 98
[2023-04-23 03:25] VITALS: BP 108/55; PULSE 77; RESP 16; TEMP 36.6; O2SAT 97
[2023-04-23] MEDS: Dextrose 5 % and 0.9 % NaCl 1,000 ML 125 ML IVCONT (05:22)
[2023-04-23 07:12] LABS: Hematocrit 32.4 % (42.0-52.0); Hemoglobin 9.4 g/dl (14.0-18.0); Mean Corpuscular Hemoglobin 22.3 pg (27.0-33.0); Mean Corpuscular Volume 76.8 fL (80.0-98.0); Mean Platelet Volume 9.2 fL (9.4-12.4); Platelet Count 262 X10*3/uL (160-400); Red Blood Count 4.22 X10*6/uL (4.60-5.80); Red Cell Distribution Width 18.7 % (11.0-16.0); White Blood Count 6.8 X10*3/uL (4.8-10.8)
[2023-04-23 07:37] LABS: Anion Gap 12 (12-20); Blood Urea Nitrogen 6 mg/dL (9-16); Calcium 8.7 mg/dL (8.4-10.2); Carbon Dioxide 26 mmol/L (22-29); Chloride 111 mmol/L (96-108); Creatinine Clr Calc Pharmacy 104.2; Estimated Glomerular Filt Rate > 60; Glucose Random 103 mg/dL (60-115); Potassium 4.3 mmol/L (3.3-5.1); Sodium 145 mmol/L (135-145)
[2023-04-23 07:53] VITALS: BP 115/65; PULSE 59; RESP 16; TEMP 36.4; O2SAT 99
[2023-04-23] MEDS: 0.9 % Sodium Chloride Flush 3 ML SYRINGE IVFLUSH (08:48)
[2023-04-23] MEDS: Metoclopramide HCl 5 MG TABLET PO ×2 (08:48→10:59)
[2023-04-23] MEDS: Atorvastatin Calcium 20 MG TABLET PO (08:48)
--- NOTE | 2023-04-23 10:42 | HO.PM.IMPN ---
Subjective Subjective Date of Service: 04/23/23 Interval History: Seen and evaluated this morning Denies any fever or chills No SOB Hb improved to 9.6 with no evidence of bleeding Review of Systems Review of Systems: Yes all other systems are reviewed and are negative Physical Exam Vital Signs: Vital Signs: Last Vital Signs Temp 97.5 F 04/23/23 07:53 Pulse 59 04/23/23 07:53 Resp 16 04/23/23 07:53 BP 115/65 04/23/23 07:53 Pulse Ox 99 04/23/23 07:53 O2 Del Method Room Air 04/23/23 07:53 BMI result Body Mass Index 19.8 Const: Other: Constitutional : Awake, interactive, not in distress Neck : Normal inspection, Supple Cardiovascular : RRR, no JVP, no lower extremity edema Respiratory : good bilateral air entry, no crackles, wheezes or rhonchi Gastrointestinal: soft, lax, Normal bowel sounds, Non tender Skin : Warm, Dry Neurological : Alert & oriented x3, No focal deficit Objective Data Active Medications Acetaminophen (Acetaminophen 325 Mg Tablet) 650 mg PO Q6H PRN PRN Reason: Pain, Mild (Pain Scale 1-3) Al Hydroxide/Mg Hydroxide (Magnesium Hydrox/Alum Hydrox 30 Ml Oral.Susp) 30 ml PO Q4H PRN PRN Reason: Heartburn/Nausea Atorvastatin Calcium (Atorvastatin Calcium 20 Mg Tablet) 20 mg PO DAILY [facility] Last Admin: 04/23/23 08:48 Dose: 20 mg Documented By: DION Melatonin (Melatonin 3 Mg Tablet) 6 mg PO BEDTIME PRN PRN Reason: Insomnia Metoclopramide HCl (Metoclopramide Hcl 5 Mg Tablet) 5 mg PO TIDAC COUNTS [facility]CLUDE 234 BEDS AT [facility] Last Admin: 04/23/23 08:48 Dose: 5 mg Documented By: DION Morphine Sulfate (Morphine Sulfate 4 Mg/Ml Cartridge) 2 mg IVPUSH Q6H PRN; Protocol PRN Reason: Pain, Severe (Pain Scale 7-10) Omeprazole (Omeprazole 40 Mg Capsule.Dr) 40 mg PO BID@0630,1630 COUNTS INCLUDE 234 BEDS AT THE [facility] Ondansetron HCl (Ondansetron Hcl 4 Mg/2 Ml Vial) 4 mg IVPUSH Q8H PRN PRN Reason: Nausea and Vomiting Oxycodone HCl (Oxycodone Hcl Immed Release 5 Mg Tablet) 5 mg PO Q6H PRN PRN Reason: Pain, Severe (Pain Scale 7-10) Sodium Chloride (0.9 % Sodium Chloride Flush 3 Ml Syringe) [facility] Last Admin: 04/23/23 08:48 Dose: 3 ml Documented By: DION Labs 04/23/23 06:50 04/23/23 06:50 Labs: Laboratory Results - last 24 hr 04/23/23 06:50 MCV 76.8 L MCH 22.3 L MCHC 29.0 L RDW 18.7 H Plt Count 262 MPV 9.2 L Absolute Nucleated RBC 0.000 Nucleated RBC % (auto) 0.0 Anion Gap 12 Estim Creat Clear Calc 104.2 Estimated GFR > 60 Random Glucose 103 Calcium 8.7 Assessment and Plan (1) GI hemorrhage: Status: Acute (2) Duodenal ulcer: Status: Acute Plan 57 year old white male with past medical history of hypertension, hyperlipidemia, GERD, gastroparesis here with: # acute on chronic blood loss symptomatic anemia 2/2 duodenal ulcer Likely 2/2 upper GI bleeding (possible focal ulceration at the lateral margin of the gastric pylorus) Hb 9.6 after 1 unit of PRBC abdominal CT scan with findings concerning for a possible focal ulceration at the lateral margin of the gastric pylorus EGD showed duodenal ulcer Omeprazole 40 bid Liver MRI per GI # Hx H. Pylori infection positive breath test Start Pepto-Bismol, Flagyl, Doxycycline and Omeprazole for treatment # Gastroparesis idiopathic continue Reglan which he states has provided him with tremendous relief # COVID-19 infection asymptomatic, keep in isolation # Hyperlipidemia resume Atorvastatin GERD # resume Pantoprazole DVT: SCD's CODE STATUS: Full code Admission for overnight for management of symptomatic anemia and upper GI hemorrhage pending MRI result Quality Stroke Does the patient have a stroke diagnosis?: No VTE Prior VTE?: No VTE Risk Level:: Medical - moderate - high VTE Device Contraindication: N/A - Device Ordered VTE Drug Contraindication: Treatment Not Indicated
[2023-04-23] MEDS: metroNIDAZOLE 500 MG TABLET PO (10:59)
[2023-04-23] MEDS: Doxycycline Monohydrate 100 MG CAPSULE PO (10:59)
[2023-04-23 11:28] VITALS: BP 115/71; PULSE 92; RESP 16; TEMP 36.6; O2SAT 100
[2023-04-23] MEDS: gadobutroL 7.5 ML VIAL IVPUSH (12:13)
[2023-04-23] MEDS: Bismuth Subsalicylate 262 MG TABLET PO (12:35)
--- NOTE | 2023-04-23 15:21 | HO.POSTANES ---
Post Anesthesia Evaluation Post Anesthesia Evaluation Date of Service: 04/23/23 Vital Signs: Vital Signs Temp Pulse Resp BP Pulse Ox O2 Del Method 04/23/23 11:28 98 F 92 16 115/71 100 Room Air 04/23/23 07:53 97.5 F 59 16 115/65 99 Room Air 04/23/23 03:25 97.9 F 77 16 108/55 L 97 Room Air Anesthesia: Monitored Mental Status: Awake Pain Control: Satisfactory Nausea/Vomiting: None Hydration: Adequate Anesthesia-Related Issues: No Anes. Related Issues
[2023-04-23 15:54] VITALS: BP 112/61; PULSE 60; RESP 16; TEMP 36.8; O2SAT 100
--- NOTE | 2023-04-23 16:09 | P.DS_ITS ---
DS: Providers Provider Date of Service: 04/23/23 Date of admission: 04/21/23 21:18 Primary care physician: VINITA Morrison Consults: 04/22/23 03:23 Consult to Gastroenterology Routine Consulting Provider: Mando Alatorre Reason for consultation: GI hemorrhage Has provider been notified: Yes DS: Diagnosis Discharge Diagnosis (1) GI hemorrhage: Status: Acute (2) Duodenal ulcer: Status: Acute DS: Summary Hospital Course Hospital Course: Admission note HPI Patient is a 57 year old white male with past medical history of hypertension, hyperlipidemia, GERD, gastroparesis here with his daughter after he was referred to the ER by his PCP. he has been experiencing worsening weakness, generalized malaise, dizziness, exertional dyspnea, 20 lb unintentional weight loss stating that he gets very out of of breath even with minimal exertion. He has also reports passing black formed stool and has been experiencing generalized anterior abdominal pain with associated reflux and a lot of belching. He saw his PCP on Apr 16 for routine follow up and had blood and breath test done where he tested positive for H. Pylori and was found to be anemic. He was therefore called at home today and advised to come to the emergency room where initial work up revealed a hemoglobin of 7.5 g/dl (down from 15.0 g/dl on 01/04/22). Stool for occult blood test done in the ER was negative. He last had a colonoscopy doine when he turned 51 which was normal. Of note, he also reports testing positive for COVID-19 yesterday but has been asymptomatic. He was been started on a blood transfusion and admission requested for further work up. Hospital course # acute on chronic blood loss symptomatic anemia 2/2 duodenal ulcer as shown on EGD done by dr Alatorre. Hb improved to 9.6 after [address] scan with findings concerning for a possible focal ulceration at the lateral margin of the gastric pylorus. EGD showed duodenal ulceration with dry blood. on Omeprazole 40 bid. A Liver MRI done showing Marked wall thickening of the duodenal bulb with submucosal edema and mucosal enhancement. The ampulla appears edematous. Edema in the head of the pancreas. Will be followed by Dr Alatorre in office in 3 months. # Hx H. Pylori infection positive breath test. Start Pepto-Bismol, Flagyl, Doxycycline and Omeprazole for treatment # Gastroparesis continue Reglan as needed as it has provided him with tremendous relief Continue Omeprazole twice daily for the next 3 months Continue treatment for H.Pylori infection with Doxycycline and Metronidazole To follow with dr Alatorre in 3 months for repeat of EGD Come back to the hospital for any black stool or evidence of bleeding Time Attestation Discharge coordination time: Greater than 30 minutes Quality: Safe Use of Opioids Does Pt have an Active Cancer Diagnosis on the Problem List?: No Quality: Stroke Does the patient have a stroke diagnosis?: No Physical Exam Vital Signs: Vital Signs: Last Vital Signs Temp 98.2 F 04/23/23 15:54 Pulse 60 04/23/23 15:54 Resp 16 04/23/23 15:54 BP 112/61 04/23/23 15:54 Pulse Ox 100 04/23/23 15:54 O2 Del Method Room Air 04/23/23 15:54 BMI result Body Mass Index 19.8 Const: Other: Constitutional : Awake, interactive, not in distress Neck : Normal inspection, Supple Cardiovascular : RRR, no JVP, no lower extremity edema Respiratory : good bilateral air entry, no crackles, wheezes or rhonchi Gastrointestinal: soft, lax, Normal bowel sounds, Non tender Skin : Warm, Dry Neurological : Alert & oriented x3, No focal deficit DS: Data Data Completed and Pending Pending studies at discharge: Pending at discharge 04/22/23 14:55 Surgical [PTH] Routine Labs on day of discharge: Laboratory Results - last 24 hr 04/23/23 06:50 WBC 6.8 RBC 4.22 L Hgb 9.4 L Hct 32.4 L MCV 76.8 L MCH 22.3 L MCHC 29.0 L RDW 18.7 H Plt Count 262 MPV 9.2 L Absolute Nucleated RBC 0.000 Nucleated RBC % (auto) 0.0 Sodium 145 Potassium 4.3 Chloride 111 H Carbon Dioxide 26 Anion Gap 12 BUN 6 L Creatinine 0.66 Estim Creat Clear Calc 104.2 Estimated GFR > 60 Random Glucose 103 Calcium 8.7 Imaging MRI - abdomen: Radiologist's impression: ITS Impressions Abdomen/Pelvis CT 04/21/23 23:50 IMPRESSION: 1. Marked wall thickening at the gastric pylorus and duodenal bulb with a possible focal ulceration at the lateral margin of the gastric pylorus. No extraluminal gas or surrounding fluid collections are identified. Consider correlation with endoscopy. 2. A 5.5 cm region of irregular hypoattenuating parenchyma in the left hepatic lobe around the portal vein and portal bifurcation. This is of uncertain etiology, potentially due to focal fatty infiltration. However, an infiltrative lesion is also on the differential, particularly given the proximity to the abnormality at the gastric antrum. Consider further assessment with MRI of the liver with and without contrast.. 3. Moderate amount of stool throughout the colon. 4. Bilateral chronic L5 pars defects with minimal anterolisthesis of L5 on S1. Fleischner guidelines were followed. Abdomen MRI 04/23/23 12:25 IMPRESSION: Marked wall thickening of the duodenal bulb with submucosal edema and mucosal enhancement. The ampulla appears edematous. There is edema in the head of the pancreas possibly on a reactive basis. Hepatic steatosis. Discharge Plan Discharge Anticipated Discharge Date/Time: 04/23/23 10:38 Patient Disposition: Home, Self-Care Discharge Diagnosis: Symptomatic anemia Duodenal ulcer Referrals: Doug Hitchcock PA [Primary Care Provider] - 1 Week Discharge Medications: New omeprazole 40 mg Capsule,Delayed Release(Dr/Ec) 40 mg PO BID@0630,1630 Qty: 120 0RF metronidazole 500 mg Tablet 500 mg PO Q8H Qty: 42 0RF doxycycline monohydrate 100 mg Capsule 100 mg PO Q12H Qty: 28 0RF Villalba Bismuth 262 mg Tablet 262 mg PO Q8H Qty: 60 0RF Ensure Liquid 1 ea PO TID Qty: 5688 2RF Continued atorvastatin 20 mg tablet 20 mg PO DAILY metoclopramide HCl 5 mg tablet 5 mg PO TIDAC Discontinued pantoprazole [Protonix] 40 mg granules for susp in packet 40 mg PO DAILY Qty: 30 0RF Discharge Orders: Discharge Order (Routine); Ordered 04/23/23 Ordered By: Ilene Bob Activity on Discharge: As tolerated Stand Alone Forms: Patient Portal Discharge page Care Plan Goals: Read below Health Concerns: Read below Plan of Treatment: Read below Assessment: EGD showed an evidence of Duodenal ulcer with no active bleeding. Continue Omeprazole twice daily for the next 3 months Continue treatment for H.Pylori infection with Doxycycline and Metronidazole To follow with dr Alatorre in 3 months for repeat of EGD Come back to the hospital for any black stool or evidence of bleeding
== END 2023-04-23 16:31 | disposition home or self-care (01) | DRG 241 ==
LOC: HO.ED 20:29 → HO.EDOVER 21:24 → HO.IMC 04-22 07:47
PROVIDERS: Internal Medicine Gastroenterology; Physician Assistant; Admitting Provider Internal Medicine; Emergency Provider Emergency Medicine; PCP Physician Assistant Medical; Visit Provider Student in an Organized Health Care Education/Training Program
PROC: 0DJ08ZZ Inspection of Upper Intestinal Tract, Via Natural or Artificial Opening Endoscopic (ICD-10-PCS; CPT 43235; principal; 2023-04-22 15:00)
DX: K26.4 Chronic or unspecified duodenal ulcer with hemorrhage (principal); U07.1 COVID-19; A04.8 Other specified bacterial intestinal infections; K31.1 Adult hypertrophic pyloric stenosis; D62 Acute posthemorrhagic anemia; R63.6 Underweight; Z68.1 Body mass index [BMI] 19.9 or less, adult; K29.71 Gastritis, unspecified, with bleeding; E78.1 Pure hyperglyceridemia; K31.84 Gastroparesis; Z79.899 Other long term (current) drug therapy
CPT/HCPCS: 36415; 74177; 74183; 80048; 80053; 80061; 82272; 82728; 83540; 83735; 84443; 84484; 85025; 85027; 85610; 85730; 86850; 86900; 86901; 86923; 87502; 87635; 88305; 88342; 93005; 99285; A9585; J2704; P9016; Q9967

== ENCOUNTER 2023-04-21 21:18 | Outpatient (BNV) | payer OTHER, SELFPAY | END 2023-04-21 23:20 | PROVIDERS: Admitting Provider Internal Medicine; Emergency Provider Emergency Medicine; PCP Physician Assistant Medical; Visit Provider Internal Medicine Cardiovascular Disease | DX: I49.9 Cardiac arrhythmia, unspecified (principal) | CPT/HCPCS: 93010 ==

== ENCOUNTER → 2023-04-21 21:18 | Outpatient (BNV) | payer OTHER, SELFPAY | PROVIDERS: Admitting Provider Internal Medicine; Emergency Provider Emergency Medicine; PCP Physician Assistant Medical; Visit Provider Internal Medicine | DX: D64.9 Anemia, unspecified (principal); A04.8 Other specified bacterial intestinal infections; K25.4 Chronic or unspecified gastric ulcer with hemorrhage | CPT/HCPCS: 99223; 99232; 99239 ==

== ENCOUNTER → 2023-04-21 21:18 | Outpatient (BNV) | payer OTHER, SELFPAY | PROVIDERS: Admitting Provider Internal Medicine; Emergency Provider Emergency Medicine; PCP Physician Assistant Medical; Visit Provider Internal Medicine Gastroenterology | DX: D50.0 Iron deficiency anemia secondary to blood loss (chronic) (principal); A04.8 Other specified bacterial intestinal infections; K26.9 Duodenal ulcer, unspecified as acute or chronic, without hemorrhage or perforation; K31.1 Adult hypertrophic pyloric stenosis | CPT/HCPCS: 43239; 99222 ==

== ENCOUNTER 2023-05-13 14:48 | Outpatient (REF) | payer OTHER, SELFPAY ==
[2023-05-13 15:01] LABS: MANUAL DIFF FLAG NO
[2023-05-13 15:12] LABS: Basophils Absolute Auto 0.1 X10*3/uL (0.0-0.2); Basophils Percent Auto 1.2 % (0-2); Eosinophils Absolute Auto 0.2 X10*3/uL (0.0-0.4); Eosinophils Percent Auto 3.1 % (0-4); Hematocrit 36.1 % (42.0-52.0); Hemoglobin 10.7 g/dl (14.0-18.0); Imm Gran Abs Auto 0.03 X10*3/uL (0.00-0.03); Imm Gran Pct Auto 0.4 % (0.0-0.4); Lymphocytes Percent Auto 25.5 % (20-40); Mean Corpuscular HGB Conc 29.6 g/dl (31.0-36.0); Mean Corpuscular Hemoglobin 21.6 pg (27.0-33.0); Mean Corpuscular Volume 72.8 fL (80.0-98.0); Mean Platelet Volume 8.9 fL (9.4-12.4); Monocytes Absolute Auto 0.9 X10*3/uL (0.1-1.2); Monocytes Percent Auto 12.3 % (2-11); Neutrophils Absolute Auto 4.4 x10*3/uL (2.0-8.3); Neutrophils Percent Auto 57.5 % (45-73); Platelet Count 434 X10*3/uL (160-400); Red Blood Count 4.96 X10*6/uL (4.60-5.80); Red Cell Distribution Width 21.3 % (11.0-16.0); White Blood Count 7.7 X10*3/uL (4.8-10.8)
[2023-05-13 15:46] LABS: Alanine Aminotransferase 18 U/L (0-40); Albumin Level 3.7 g/dL (3.5-5.0); Alkaline Phosphatase 49 U/L (39-117); Anion Gap 13 (12-20); Aspartate Amino Transferase 28 U/L (5-37); Bilirubin Direct < 0.2 mg/dL (0.0-0.5); Bilirubin Total 0.2 mg/dL (0.0-1.0); Blood Urea Nitrogen 16 mg/dL (9-16); Calcium 9.4 mg/dL (8.4-10.2); Carbon Dioxide 30 mmol/L (22-29); Chloride 104 mmol/L (96-108); Estimated Glomerular Filt Rate > 60; Glucose Random 112 mg/dL (60-115); Iron 32 mcg/dL (45-160); Percent Iron Saturation 12 % (15-50); Potassium 4.1 mmol/L (3.3-5.1); Sodium 143 mmol/L (135-145); Total Iron Binding Capacity 276 mcg/dL (228-428); Total Protein 6.9 g/dL (6.5-8.0); Unsaturated Iron Binding 244 ug/dL
[2023-05-13 16:00] LABS: Ferritin 16 ng/mL (20-250)
[2023-05-13 16:14] LABS: Folate 11.1 ng/mL (> or = 4.0); Vitamin B12 530 pg/mL (200-900)
== END 2023-05-13 14:49 | disposition home or self-care (01) ==
LOC: HO.LAB 14:48
PROVIDERS: Visit Provider Internal Medicine
DX: K27.9 Peptic ulcer, site unspecified, unspecified as acute or chronic, without hemorrhage or perforation (principal); R11.2 Nausea with vomiting, unspecified; D50.0 Iron deficiency anemia secondary to blood loss (chronic)
CPT/HCPCS: 36415; 80048; 80076; 82607; 82728; 82746; 83540; 85025

== ENCOUNTER 2023-06-29 10:24 | Outpatient (REF) | payer OTHER, SELFPAY ==
[2023-06-29 13:30] LABS: MANUAL DIFF FLAG NO
[2023-06-29 13:46] LABS: Basophils Absolute Auto 0.1 X10*3/uL (0.0-0.2); Eosinophils Absolute Auto 0.1 X10*3/uL (0.0-0.4); Eosinophils Percent Auto 1.8 % (0-4); Imm Gran Abs Auto 0.03 X10*3/uL (0.00-0.03); Imm Gran Pct Auto 0.4 % (0.0-0.4); Lymphocytes Absolute Auto 1.5 X10*3/uL (1.2-4.9); Lymphocytes Percent Auto 22.7 % (20-40); Mean Corpuscular HGB Conc 27.8 g/dl (31.0-36.0); Mean Corpuscular Hemoglobin 19.5 pg (27.0-33.0); Mean Corpuscular Volume 70.1 fL (80.0-98.0); Mean Platelet Volume 9.4 fL (9.4-12.4); Monocytes Absolute Auto 0.8 X10*3/uL (0.1-1.2); Monocytes Percent Auto 11.9 % (2-11); Neutrophils Absolute Auto 4.2 x10*3/uL (2.0-8.3); Neutrophils Percent Auto 62.2 % (45-73); Platelet Count 386 X10*3/uL (160-400); Red Blood Count 3.28 X10*6/uL (4.60-5.80); Red Cell Distribution Width 19.6 % (11.0-16.0); White Blood Count 6.7 X10*3/uL (4.8-10.8)
[2023-06-29 13:55] LABS: Hemoglobin 6.4 g/dl (14.0-18.0)
[2023-06-29 14:15] LABS: Iron 38 mcg/dL (45-160); Percent Iron Saturation 11 % (15-50); Total Iron Binding Capacity 338 mcg/dL (228-428); Unsaturated Iron Binding 300 ug/dL
[2023-06-29 14:21] LABS: Ferritin 7 ng/mL (20-250)
== END 2023-06-29 10:25 | disposition home or self-care (01) ==
LOC: HO.10HDL 10:24
PROVIDERS: Visit Provider Internal Medicine
DX: D50.0 Iron deficiency anemia secondary to blood loss (chronic) (principal)
CPT/HCPCS: 36415; 82728; 83540; 85025

== ENCOUNTER 2023-06-29 20:07 | Inpatient (IN) | payer OTHER, SELFPAY ==
--- NOTE | ~2023-06-29 | CT_ITS ---
EXAMINATION: CT ABDOMEN WITH CONTRAST CLINICAL INFORMATION: Abnormal CT in April 2023 read stomach/duodenum/pylorus. COMPARISON: MRI abdomen 04/23/[address] abdomen 04/21/2023. TECHNIQUE: Contiguous axial thin section helical images of the abdomen were performed following the administration of oral contrast and 85 mL of Omnipaque 350 intravenous contrast. The data set was reformatted in the coronal and sagittal planes and reviewed on an independent workstation. This CT examination was performed using dose optimization techniques as appropriate, variously including the following: *Automated exposure control *Adjustment of mA and/or kV according to patient size (this includes techniques or standardized protocols for targeted exams where dose is matched to indication/reason for exam; i.e. extremities or head) *Use of iterative reconstruction technique DLP: 227 mGy-cm FINDINGS: LUNG BASES: New tree-in-bud airspace disease in the inferior segment of the lingula consistent with bronchiolitis. LIVER, GALLBLADDER, AND BILIARY TREE: Low-attenuation liver suggesting hepatic steatosis. Edema in the day hepatis is likely reactive and less prominent than prior. There is very mild left biliary ductal dilatation which is less prominent than prior. The common bile duct is not dilated. PANCREAS: There is some edema around the pancreatic head centered on the duodenum. There is no pancreatic ductal dilatation or discrete pancreatic mass. SPLEEN: Unremarkable. ADRENAL GLANDS AND KIDNEYS: No adrenal mass. Symmetric nephrograms. No suspicious renal mass. No hydronephrosis. BOWEL: There is abnormal mural thickening of the pylorus and duodenal bulb which appears improved from prior. The rest of the included small bowel and large bowel are unremarkable. LYMPH NODES: No adenopathy. VASCULAR: Mild atherosclerosis of the aorta. No aortic aneurysm. BONES: Degenerative changes in the spine. Bilateral pars defects at L5 without significant listhesis. CT/CT abdomen w IV con IMPRESSION: Improved but incompletely resolved thickening of the gastric pylorus and the duodenal bulb. There is inflammatory stranding or fluid between these structures and the pancreatic head without an organized fluid collection. Correlation with endoscopy is recommended. New tree-in-bud airspace disease in the inferior lingula consistent with bronchiolitis. Fleischner guidelines were followed.
[2023-06-29 20:29] VITALS: BP 110/65; PULSE 80; RESP 16; TEMP 36.5; O2SAT 100; BMI 18.2
--- NOTE | 2023-06-29 20:32 | ED.GENADULT ---
HPI - General Adult General Chief complaint: Recheck/Abnormal Lab/Rx Stated complaint: abnormal labs. Gastro Dr ref pt to ED Time Seen by Provider: 06/29/23 20:48 Source: patient Mode of arrival: ambulatory Limitations: no limitations History of Present Illness HPI narrative: Patient history of hypertension hyperlipidemia GERD gastroparesis with duodenal ulcer and frequent GI bleed with history of GI bleed in 04/22/2023 status post endoscopy showed duodenal ulceration with dried blood comes as been having black stool off and on had labs done as outpatient earlier today which showed hemoglobin of 6.4 hematocrit 23 patient is taking Prilosec 40 mg daily pain feel heart no vomiting of the blood patient feels weak and sometimes dizzy no chest pain or palpitation Related Data Home Medications Medication Instructions Recorded Confirmed atorvastatin 20 mg tablet 20 mg PO DAILY 04/21/23 06/29/23 Previous Rx's Medication Instructions Recorded omeprazole 40 mg capsule,delayed 40 mg PO BID@0630,1630 #120 caps 04/23/23 release Allergies Allergy/AdvReac Type Severity Reaction Status Date / Time No Known Allergies Allergy Verified 06/29/23 20:29 Review of Systems Review of Systems: Yes all other systems are reviewed and are negative [facility] [place] Past Medical History Medical History (Updated 06/30/23 @ 00:36 by Santiago Sanchez MD) HTN (hypertension) Partial gastric outlet obstruction Peptic ulcer Nondiabetic gastroparesis Hyperlipidemia Hypertension, essential Anemia H. pylori infection Surgical History H/O colonoscopy History of esophagogastroduodenoscopy (EGD) Social History Social History Household Members: Family Housing: House Do you presently have visiting nurse or other home services: No Alcohol intake: current Alcohol intake frequency: holidays/special occasions only Patient Tobacco Use Status: Current everyday Tobacco user Smoked in Last 30 Days: Yes Use of substances other than those prescribed or required for medical reasons: No Advance Directives: No Advance Directives Information Provided: No Nutrition Risks: No Nutritional Risk service: No Physical Exam ED Vital Signs: Vital Signs - 24 hr 06/29/23 20:29 06/29/23 21:43 06/29/23 23:04 Temperature 97.7 F 97.7 F Pulse Rate 80 75 74 Respiratory Rate 16 18 18 Blood Pressure 110/65 100/54 L 96/57 L Pulse Oximetry 100 99 Oxygen Delivery Method Room Air Room Air 06/29/23 23:20 06/30/23 00:11 Temperature 99.1 F Pulse Rate 72 70 Respiratory Rate 18 18 Blood Pressure 91/57 L 97/60 Pulse Oximetry 98 Oxygen Delivery Method Room Air BMI result Body Mass Index 18.2 Appearance: Alert. Oriented X3. No acute distress. Eyes: PERRLA, pallor+ ENT: Pharynx normal. Oral Mucosa moist Neck: Normal inspection. Neck supple. CVS: Normal heart rate and rhythm. Pulses normal. Respiratory: No respiratory distress. Equal air entry bilateral, no wheezing/rales/rhonchi Abdomen: Soft mild epigastric tenderness Bowel sounds are present, no mass palpable, no CVA tenderness rectal: dark stool guaic +ve Skin: Skin warm and dry. Normal skin color. Normal skin turgor. Extremities: No lower extremity edema. No calf tenderness Neuro: Oriented X 3. No motor deficit. Course Course Course Narrative: RME performed by Anisha Regan PA-C. Patient is a 58 year old assigned male at presenting to the emergency department with shortness of breath and decreased blood counts. Patient is a patient of Dr. Baker who recommended the patient be transfused and admitted to the hospital. Detailed physical exam and review of systems are deferred to the polls or surveys interviewer. Labs ordered. Charge nurse made aware of patient. Medications Administered Discontinued Medications Generic Name Dose Route Start Last Admin Trade Name Freq PRN Reason Stop Dose Admin Sodium Chloride 100 mls @ 100 mls/hr 06/29/23 21:00 06/30/23 01:48 Ns IV 06/29/23 21:59 Infused ONCE ONE Infusion Sodium Chloride 100 mls @ 100 mls/hr 06/29/23 21:00 06/30/23 04:36 Ns IV 06/29/23 21:59 Infused ONCE ONE Infusion Pantoprazole Sodium 80 mg 06/29/23 21:07 06/29/23 21:42 Pantoprazole Sodium 40 Mg/10 Ml Vial IVPUSH 06/29/23 21:08 80 mg ONCE ONE Administration Medical Decision Making Medical Decision Making MDM Narrative: Patient with history of bleeding duodenal ulcer in 05/06 comes here for severe anemia with off and on melena hemoglobin 6.4 hematocrit 23 will admit patient for IV blood transfusion and endoscopy Differential Diagnosis Differential Diagnoses: The differential diagnosis associated with the presentation includes GI bleed Admission/Observation Consideration of admission/observation: Escalation of care including admission/observation considered Consult Healthcare Provider Management of the patient was discussed with: Hospitalist Lab Data MDM Lab Attestation statement: I reviewed the patient's lab results. 06/30/23 04:45 06/30/23 04:45 Labs: Lab Results 06/29/23 06/29/23 Range/Units 21:17 21:37 PT 11.6 (11.1-13.3) SEC INR 1.0 (0.9-1.1) Sodium 142 (135-145) mmol/L Potassium 3.8 (3.3-5.1) mmol/L Chloride 107 (96-108) mmol/L Carbon Dioxide 26 (22-29) mmol/L Anion Gap 13 (12-20) BUN 17 H (9-16) mg/dL Creatinine 0.81 (0.5-1.4) mg/dL Estim Creat Clear Calc 77.4 Estimated GFR > 60 Random Glucose 104 (60-115) mg/dL Calcium 9.1 (8.4-10.2) mg/dL Magnesium 1.8 (1.6-2.6) mg/dL Total Bilirubin 0.4 (0.0-1.0) mg/dL AST 19 (5-37) U/L ALT 11 (0-40) U/L Alkaline Phosphatase 58 (39-117) U/L Total Protein 6.6 (6.5-8.0) g/dL Albumin 3.7 (3.5-5.0) g/dL Stool Occult Blood POSITIVE (NEGATIVE) Blood Type A Positive Antibody Screen NEGATIVE Crossmatch See Detail Discharge Plan Discharge Clinical Impression: Duodenal ulcer, Acute upper GI bleed, Severe anemia Patient Disposition: Admitted As Inpatient
--- NOTE | 2023-06-29 20:33 | ECG_ITS ---
Test Reason : ABNORMAL LABS Blood Pressure : / mmHG Vent. Rate : 074 BPM Atrial Rate : 074 BPM P-R Int : 130 ms QRS Dur : 094 ms QT Int : 362 ms P-R-T Axes : 076 043 055 degrees QTc Int : 401 ms Normal sinus rhythm Minimal voltage criteria for LVH, may be normal variant ( Sokolow-Pennington ) Borderline ECG When compared with ECG of 21-APR-2023 23:29, No significant change was found Referred By: Anisha Regan Electronically Signed By:MIRACLE GAGE
--- NOTE | 2023-06-29 21:25 | PHA.MEDREC ---
Pharmacy Consult ? Medication Reconciliation Pharmacy has completed the medication reconciliation. Patient had omeprazole rx bottle with him and reported he takes a cholesterol medication. Report he was taken off all other medications. Afia Izquierdo, PharmD
[2023-06-29 21:29] LABS: Prothrombin Time 11.6 SEC (11.1-13.3)
[2023-06-29 21:38] LABS: Alanine Aminotransferase 11 U/L (0-40); Albumin Level 3.7 g/dL (3.5-5.0); Alkaline Phosphatase 58 U/L (39-117); Anion Gap 13 (12-20); Aspartate Amino Transferase 19 U/L (5-37); Bilirubin Total 0.4 mg/dL (0.0-1.0); Blood Urea Nitrogen 17 mg/dL (9-16); Calcium 9.1 mg/dL (8.4-10.2); Carbon Dioxide 26 mmol/L (22-29); Chloride 107 mmol/L (96-108); Creatinine Clr Calc Pharmacy 77.4; Estimated Glomerular Filt Rate > 60; Glucose Random 104 mg/dL (60-115); Magnesium 1.8 mg/dL (1.6-2.6); Potassium 3.8 mmol/L (3.3-5.1); Sodium 142 mmol/L (135-145); Total Protein 6.6 g/dL (6.5-8.0)
[2023-06-29] MEDS: Pantoprazole Sodium 40 MG/10 ML VIAL 80 MG IVPUSH (21:42)
[2023-06-29 21:43] VITALS: BP 100/54; PULSE 75; RESP 18; O2SAT 99
[2023-06-29 22:00] LABS: OBS Int Ctl Valid YES; OBS1 POSITIVE (NEGATIVE)
[2023-06-29 23:04] VITALS: BP 96/57; PULSE 74; RESP 18; TEMP 36.5
[2023-06-29 23:20] VITALS: BP 91/57; PULSE 72; RESP 18; TEMP 37.3
[2023-06-30] VITALS (15 sets, daily range): BP systolic 87–111; BP diastolic 54–69; PULSE 59–90; RESP 12–20; TEMP 35.8–37.2; O2SAT 97–99
--- NOTE | 2023-06-30 00:18 | PM.IMHP ---
History of Present Illness Date of Service: 06/30/23 Attending physician on admission: Santiago Sanchez Chief Complaint: Low hemoglobin Rodney Dawn is a 58 years old man with past medical history significant for GERD, PUD, idiopathic gastroparesis and hyperlipidemia presents to the emergency department after he was found to have low hemoglobin on routine blood workup. He does complain of reflux and black stools. He denied abdominal pain, nausea, dizziness, headache or vomiting. Denied chills and fever. No blood in urine reported. He denied any cardiopulmonary symptoms. Denied use of NSAIDs or alcohol. He smokes tobacco daily. He was hospitalized in April of this year with diagnosis of acute on chronic blood loss symptomatic anemia secondary to possible focal ulceration of the lateral margin of the gastric pylorus. At that time he required blood transfusions and was found to have H pylori infection a received treatment with Pepto-Bismol, Flagyl, doxycycline and omeprazole. The, he was found to have stable vital signs. Blood workup showed hemoglobin of 6.4 (10:30 am) with low MCV. There are no electrolyte imbalances. BUN is slightly elevated. LFTs are normal. ED tx: Transfusion 2 units (currently receiving first unit), pantoprazole 80 mg IV Review of Systems Review of Systems: All 12 systems were reviewed and normal except as noted in HPI. [facility] Medical History (Updated 06/30/23 @ 00:36 by Santiago Sanchez MD) HTN (hypertension) Partial gastric outlet obstruction Peptic ulcer Nondiabetic gastroparesis Hyperlipidemia Hypertension, essential Anemia H. pylori infection Surgical History H/O colonoscopy History of esophagogastroduodenoscopy (EGD) Social History Household Members: Family Housing: House Do you presently have visiting nurse or other home services: No Alcohol intake: current Alcohol intake frequency: holidays/special occasions only Patient Tobacco Use Status: Never used Tobacco Smoked in Last 30 Days: Yes Use of substances other than those prescribed or required for medical reasons: No Advance Directives: No Advance Directives Information Provided: No service: No Meds Allergies Allergy/AdvReac Type Severity Reaction Status Date / Time No Known Allergies Allergy Verified 06/29/23 20:29 Active Medications: Current Medications Pantoprazole Sodium (Pantoprazole Sodium 40 Mg/10 Ml Vial) 40 mg IVPUSH Q12H [facility] Sodium Chloride (0.9 % Sodium Chloride Flush 3 Ml Syringe) 3 ml IVFLUSH QSHIFT [facility] Home Medications Medication Instructions Recorded Confirmed Last Taken Type atorvastatin 20 mg tablet 20 mg PO DAILY 04/21/23 06/29/23 06/28/23 History Physical Exam Vital Signs and Narrative: Vital Signs: Last Vital Signs Temp 99.1 F 06/29/23 23:20 Pulse 70 06/30/23 00:11 Resp 18 06/30/23 00:11 BP 97/60 06/30/23 00:11 Pulse Ox 98 06/30/23 00:11 O2 Del Method Room Air 06/30/23 00:11 BMI result Body Mass Index 18.2 Constitutional - Awake and Alert, No apparent distress. Pale. Cooperative. HEENT - pale conjunctivae. Dry oral mucosa. Heart - S1S2, RRR. No murmur. Lungs - Normal lung expansion, Normal respiratory effort, No respiratory distress, CTA bilaterally Abdomen - NT / ND; +BS; No rebound or guarding Extremities - no calf tenderness bilaterally, no swelling Musculoskeletal - Normal inspection, normal ROM Skin - Warm/Dry. Pale. Neurological - Alert & oriented x3. No focal weakness grossly noted. Normal speech. Psychological - Appropriate affect Results Labs 06/29/23 21:17 Labs: Laboratory Results - last 24 hr 06/29/23 06/29/23 21:17 21:37 PT 11.6 INR 1.0 Anion Gap 13 Estim Creat Clear Calc 77.4 Estimated GFR > 60 Random Glucose 104 Calcium 9.1 Magnesium 1.8 Total Bilirubin 0.4 AST 19 ALT 11 Alkaline Phosphatase 58 Total Protein 6.6 Albumin 3.7 Stool Occult Blood POSITIVE Blood Type A Positive Antibody Screen NEGATIVE Crossmatch See Detail Assessment and Plan (1) Severe anemia: Status: Acute (2) Acute upper GI bleed: Status: Acute (3) Hyperlipidemia: Qualifiers: Hyperlipidemia type: unspecified Qualified Code(s): E78.5 - Hyperlipidemia, unspecified Status: Acute (4) Nondiabetic gastroparesis: Status: Acute Plan Rodney Dawn is a 58 years old man admitted with: Acute blood loss anemia likely secondary to upper GI bleeding due to PUD. Admit to hospitalist service. Keep NPO. PRBCs transfusion to keep Hgb >7. Continue to monitor H&H. Continue Protonix 40 mg IV every 12 hours. Gastroenterology consult for EGD -Dr. Baker has been consulted. Idiopathic gastroparesis. Reglan as needed. Hyperlipidemia. Continue statin when able. DVT prophylaxis: SCDs only Code status: Full Patient will need hospitalization for at least 2 midnights for PRBC transfusion, treatment with Protonix IV and evaluation by gastroenterology service for EGD. Quality Stroke Does the patient have a stroke diagnosis?: No VTE Prior VTE?: No VTE Risk Level:: Medical - moderate - high VTE Device Contraindication: N/A - Device Ordered VTE Drug Contraindication: Treatment Not Indicated
[2023-06-30 05:16] LABS: Hematocrit 26.3 % (42.0-52.0); Mean Corpuscular HGB Conc 30.4 g/dl (31.0-36.0); Mean Corpuscular Hemoglobin 22.7 pg (27.0-33.0); Mean Corpuscular Volume 74.5 fL (80.0-98.0); Mean Platelet Volume 8.7 fL (9.4-12.4); Platelet Count 276 X10*3/uL (160-400); Red Blood Count 3.53 X10*6/uL (4.60-5.80); Red Cell Distribution Width 21.2 % (11.0-16.0); White Blood Count 6.4 X10*3/uL (4.8-10.8)
[2023-06-30 05:40] LABS: Alanine Aminotransferase 10 U/L (0-40); Albumin Level 3.1 g/dL (3.5-5.0); Alkaline Phosphatase 52 U/L (39-117); Anion Gap 12 (12-20); Aspartate Amino Transferase 17 U/L (5-37); Blood Urea Nitrogen 16 mg/dL (9-16); Calcium 8.5 mg/dL (8.4-10.2); Carbon Dioxide 24 mmol/L (22-29); Chloride 110 mmol/L (96-108); Creatinine Clr Calc Pharmacy 96.5; Estimated Glomerular Filt Rate > 60; Glucose Random 98 mg/dL (60-115); Potassium 3.7 mmol/L (3.3-5.1); Sodium 142 mmol/L (135-145); Total Protein 5.5 g/dL (6.5-8.0)
[2023-06-30] MEDS: 0.9 % Sodium Chloride Flush 3 ML SYRINGE IVFLUSH (09:26)
[2023-06-30] MEDS: Pantoprazole Sodium 40 MG/10 ML VIAL IVPUSH ×2 (09:26→22:04)
--- NOTE | 2023-06-30 09:30 | PC.NURSE ---
pt is alert and oriented, skin pwd, respirations even and unlabored, ls clear, abd soft and non tender with bowel sounds in all 4 quadrants, pt denies pain and nausea at this time, ns on the monitor and vs stable
[2023-06-30] MEDS: iohexoL 350 MG/ML 100 ML INFUS..BTL IV (10:55)
[2023-06-30] MEDS: Diatrizoate Meglumine, Sodium 30 ML SOLUTION PO (11:02)
[2023-06-30 11:12] LABS: MANUAL DIFF FLAG NO
[2023-06-30 11:20] LABS: Basophils Absolute Auto 0.1 X10*3/uL (0.0-0.2); Eosinophils Absolute Auto 0.2 X10*3/uL (0.0-0.4); Eosinophils Percent Auto 3.1 % (0-4); Hematocrit 25.8 % (42.0-52.0); Hemoglobin 7.9 g/dl (14.0-18.0); Imm Gran Abs Auto 0.01 X10*3/uL (0.00-0.03); Imm Gran Pct Auto 0.2 % (0.0-0.4); Lymphocytes Absolute Auto 1.3 X10*3/uL (1.2-4.9); Lymphocytes Percent Auto 21.6 % (20-40); Mean Corpuscular HGB Conc 30.6 g/dl (31.0-36.0); Mean Corpuscular Hemoglobin 22.7 pg (27.0-33.0); Mean Corpuscular Volume 74.1 fL (80.0-98.0); Mean Platelet Volume 8.6 fL (9.4-12.4); Monocytes Absolute Auto 0.7 X10*3/uL (0.1-1.2); Monocytes Percent Auto 11.4 % (2-11); Neutrophils Absolute Auto 3.7 x10*3/uL (2.0-8.3); Neutrophils Percent Auto 62.7 % (45-73); Platelet Count 303 X10*3/uL (160-400); Red Blood Count 3.48 X10*6/uL (4.60-5.80); White Blood Count 5.9 X10*3/uL (4.8-10.8)
--- NOTE | 2023-06-30 11:37 | MHC.CM.PN ---
Pt is independent, no home health services, no medical equipment. He will complete HCP form here, naming his . His will transport him home upon DC. CM to follow and assist as needed with DC plan.
--- NOTE | 2023-06-30 16:12 | PC.NURSE ---
late entry: assumed care of pt at 1100. pt a&o x4, calm, and cooperative. pt denies pain and is resting quietly on stretcher in no apparent distress. visitor at bedside. pt offers no complaints ирина other than being hungry. pt has maintained NPO status. IVs patent. rr even/unlabored. call rayo within reach. plan of care ongoing. inpatient report complete. pt awaiting transport.
--- NOTE | 2023-06-30 16:31 | P.PNIM_ITS ---
Subjective Subjective Date of Service: 06/30/23 Interval History: anemia Review of Systems Patient says she is having melena for few weeks Denies any chest pain or shortness of breath on any gross bleeding today Physical Exam 2 Vital Signs: Vital Signs: Last Vital Signs Temp 99.0 F 06/30/23 12:36 Pulse 60 06/30/23 12:36 Resp 12 06/30/23 12:36 BP 94/64 06/30/23 12:36 Pulse Ox 99 06/30/23 12:36 O2 Del Method Room Air 06/30/23 12:36 BMI result Body Mass Index 18.2 Appearance: Alert.? Oriented X3.? cvs: [id number], [id number] . res: clear to auscultation ,no rhonchii or wheezing abd: no rebound or guarding ,nt, bs present. ext pulses present , no cyanosis . neuro: axo3 , nonfocal. Objective Data Active Medications Atorvastatin Calcium (Atorvastatin Calcium 20 Mg Tablet) 20 mg PO DAILY [facility] Last Admin: 06/30/23 10:36 Dose: Not Given Documented By: FAVIAN Non-Admin Reason: NPO Metoclopramide HCl (Metoclopramide Hcl 10 Mg/2 Ml Vial) 5 mg IVPUSH Q6H PRN PRN Reason: Nausea and Vomiting Pantoprazole Sodium (Pantoprazole Sodium 40 Mg/10 Ml Vial) 40 mg IVPUSH Q12H [facility] Last Admin: 06/30/23 09:26 Dose: 40 mg Documented By: FAVIAN Sodium Chloride (0.9 % Sodium Chloride Flush 3 Ml Syringe) 3 ml IVFLUSH QSHIFT [facility] Last Admin: 06/30/23 15:28 Dose: Not Given Documented By: LINDA Non-Admin Reason: Med Not Available Labs 06/30/23 11:00 06/30/23 04:45 Labs: Laboratory Results - last 24 hr 06/29/23 06/29/23 06/30/23 21:17 21:37 04:45 MCV 74.5 L MCH 22.7 L MCHC 30.4 L RDW 21.2 H Plt Count 276 D MPV 8.7 L Immature Gran % (Auto) Neut % (Auto) Lymph % (Auto) [place] % (Auto) Eos % (Auto) Baso % (Auto) Lymph # (Auto) [place] # (Auto) Eos # (Auto) Baso # (Auto) Abs Immat Gran (auto) Absolute Neuts (auto) Absolute Nucleated RBC 0.000 Nucleated RBC % (auto) 0.0 PT 11.6 INR 1.0 Anion Gap 13 12 Estim Creat Clear Calc 77.4 96.5 Estimated GFR > 60 > 60 Random Glucose 104 98 Calcium 9.1 8.5 D Magnesium 1.8 Total Bilirubin 0.4 1.0 AST 19 17 ALT 11 10 Alkaline Phosphatase 58 52 Total Protein 6.6 5.5 L Albumin 3.7 3.1 L Stool Occult Blood POSITIVE Blood Type A Positive Antibody Screen NEGATIVE Crossmatch See Detail 06/30/23 11:00 MCV 74.1 L MCH 22.7 L MCHC 30.6 L RDW 21.0 H Plt Count 303 MPV 8.6 L Immature Gran % (Auto) 0.2 Neut % (Auto) 62.7 Lymph % (Auto) 21.6 [place] % (Auto) 11.4 H Eos % (Auto) 3.1 Baso % (Auto) 1.0 Lymph # (Auto) 1.3 [place] # (Auto) 0.7 Eos # (Auto) 0.2 Baso # (Auto) 0.1 Abs Immat Gran (auto) 0.01 Absolute Neuts (auto) 3.7 Absolute Nucleated RBC 0.000 Nucleated RBC % (auto) 0.0 PT INR Anion Gap Estim Creat Clear Calc Estimated GFR Random Glucose Calcium Magnesium Total Bilirubin AST ALT Alkaline Phosphatase Total Protein Albumin Stool Occult Blood Blood Type Antibody Screen Crossmatch Assessment and Plan (1) Severe anemia: Status: Acute (2) Acute upper GI bleed: Status: Acute Plan 58 years old man admitted with: Acute blood loss anemia likely secondary to upper GI bleeding due to PUD. s/p 2 prbc h/h stable around 8/25.8. CT/CT abdomen :Improved but incompletely resolved thickening of the gastric pylorus and the duodenal bulb. There is inflammatory stranding or fluid between,these structures and the pancreatic head without an organized fluid collection. plan: Gastroenterology consult for EGD -Dr. Baker has been consulted- Continue to monitor H&H,also Protonix 40 mg IV every 12 hours.npo past midnight possible egd in am. Idiopathic gastroparesis. Reglan as needed. Hyperlipidemia. Continue statin when able. DVT prophylaxis: SCDs only ongoinh need hospitalization for aAcute blood loss anemia likely secondary to upper GI bleeding due to PUD: need PRBC transfusion, h/h monitering,treatment with Protonix IV and evaluation by gastroenterology service for EGD. Quality Stroke Does the patient have a stroke diagnosis?: No VTE Prior VTE?: No VTE Risk Level:: Medical - moderate - high VTE Device Contraindication: N/A - Device Ordered VTE Drug Contraindication: Treatment Not Indicated
--- NOTE | 2023-06-30 19:37 | PM.EVENT ---
Event Note Date of Service: 06/30/23 Event Note: GI Consult-Full note dictated Imp: 58 yo with persistent and worsening issues with anorexia, early satiety, weight loss, chronic GI bleeding and anemia, and N/V, as well as an abnormal CT of the UGI tract. Diff dx: GI neoplasm, chronic peptic ulcer disease Rec: Transfuse to Hgb > 9. IV PPI. EGD with me or Dr. Moore, with planned repeat biopsies and possible dilation of the pyloric channel/duodenal bulb depending upon the findings. Full consent has been obtained from him for this, including risks of bleeding and perforation. Given the description of his symptoms and component of probable gastric outlet obstruction, the procedure may need to be done with GA. I will leave that to the discretion of the Anesthesiologist. D/W patient in detail and he is comfortable with this plan. Thanks Time Spent With Patient Time: Total time managing care of this patient today ____ minutes.
--- NOTE | 2023-06-30 19:44 | MHC.SHP ---
Pre-Procedural Eval Section A - 24 Hr Update-Section A only Date of Service: 07/01/23 The patient is an INPATIENT: Yes The patient has been examined within 24 hours of the surgical procedure. The History & Physical has been completed within 30 days and I have reviewed it.: Yes Section B - Complete if H&P > 30 days Chief Complaint: Acute blood loss anemia Allergies: Allergies Allergy/AdvReac Type Severity Reaction Status Date / Time No Known Allergies Allergy Verified 06/29/23 20:29 Plan I have reviewed the history and physical and performed a pertinent physical examination on my patient. No changes have occurred unless specified. Time Spent With Patient Time: Total time managing care of this patient today ____ minutes.
[2023-07-01] VITALS (9 sets, daily range): BP systolic 81–118; BP diastolic 40–73; PULSE 55–75; RESP 16–20; TEMP 35.8–36.8; O2SAT 97–100; BMI 18.2
--- NOTE | 2023-07-01 02:14 | CONS_ITS ---
DATE OF SERVICE: 06/30/2023 REASON FOR CONSULTATION: Chronic upper GI bleeding, weight loss, early satiety, and abnormal CT scan of upper GI tract. HISTORY OF PRESENT ILLNESS: This has been obtained from the patient and the medical record. The patient is a 58-year-old male who I met at the end of April in the office for the evaluation of anemia, ongoing upper GI complaints, weight loss, and a previously abnormal upper endoscopy. The patient has had at least 1 year of fairly chronic upper GI complaints of some early satiety, vomiting, and weight loss. He has lost over 20 pounds, including 10 more pounds since I met him on May 13 in the office. He has been having problems with early satiety, nausea, and vomiting. He will also induce vomiting to make himself feel better. He denies any hematemesis nor coffee-grounds emesis. He denies any significant heartburn or dysphagia. He was hospitalized here in early April with a GI bleed requiring 2 transfusions with a hemoglobin of 7.5. An upper endoscopy with Dr. Alatorre on April 22 described inflammatory changes in the duodenal bulb with some ulcerations and relative narrowing, although he was able to enter the 2nd portion of the duodenum. There was no active ulcer disease nor any definitive mass. Gastric biopsies were negative for H pylori. Biopsies from the duodenal bulb raised a suspicion of some atypical epithelium, but without any definitive neoplasia. Biopsies from the 2nd portion of the duodenum were normal. A CT scan during that admission described some marked thickening in the region of the pylorus and duodenal bulb with question of some ulceration in the pyloric channel. There was also question of a lesion in the liver near the portal vein, but a followup MRI was negative for that. When I saw him on May 13, he was on omeprazole twice a day, doxycycline, metronidazole, and Pepto-Bismol. He had a previously positive H pylori test, but again the biopsies back in April were negative for H pylori from the endoscopy. He had also been on metoclopramide when I met him due to a question of gastroparesis. His hemoglobin had increased to 9.4 after discharge. He did remain iron deficient. When I saw him in the office on May 13, I had him stop his metoclopramide and antibiotics as I felt his condition was consistent with that of at least partial gastric outlet obstruction from the abnormality seen on the endoscopy. I had him continue his omeprazole 40 mg b.i.d. He was advised to try to stay off cigarettes and avoid all NSAIDs. The plan had been for an outpatient upper endoscopy this past week after hopeful healing of any ulcer disease and to reinspect the area in the pylorus and duodenum to see if would be amenable to dilation. However, due to progressive weakness, a CBC was checked and he was found to be quite anemic with a hemoglobin of 6.4. He came to the ER for admission. He has received 2 units of blood thus far and is scheduled for 1 more unit of blood tonight. He has had some intermittent black or dark stools at home, but had only a brown bowel movement here in the hospital. He was heme-positive, however. He denies any hematochezia. MEDICATIONS: At home included only omeprazole and atorvastatin. His medications here include IV pantoprazole, metoclopramide p.r.n. PAST MEDICAL HISTORY: He denies any surgeries. Upper GI bleeding with abnormality in the pylorus and duodenal bulb as described above. Hyperlipidemia. Hypertension. He denies any history of HI, diabetes, stroke, lung disease, or kidney disease. He describes a negative screening colonoscopy at age 51. 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 He does smoke. He denies any alcohol use of significance. FAMILY HISTORY: Noncontributory. REVIEW OF SYSTEMS: CONSTITUTIONAL: He has been feeling poorly in general due to his weight loss, difficulty eating, and fatigue. CARDIAC: No chest pain. PULMONARY: He has had some shortness of breath in relation to the anemia, but no coughing nor hemoptysis. GI: As above. URINARY: No dysuria or any hematuria. NEUROLOGIC: No headache or seizures. PSYCHIATRIC: Negative. PHYSICAL EXAMINATION: GENERAL: The patient is a pleasant, thin, alert male. He has obviously lost weight. SKIN: Warm and dry. HEENT: Anicteric sclerae. NECK: Supple. There is no lymphadenopathy. CHEST: Clear. CARDIAC: Normal S1, S2. ABDOMEN: Soft, nondistended, nontender without palpable mass. EXTREMITIES: Without edema. LABORATORY DATA: As above. White count today after transfusions showed hemoglobin of 5.9 and hemoglobin 7.9, platelets 203,000 with an MCV of 74. PT was 11.6 with INR 1.0. Normal electrolytes. BUN 16, creatinine 0.7. Normal LFTs. Albumin 3.1. Stool was heme positive. He did have a followup CT scan of the abdomen today with both oral and IV contrast. This described abnormal thickening in the region of the pylorus and duodenal bulb which is described as appearing improved compared to the study in April. There was no definitive evidence of gastric outlet obstruction. There was some edema around the pancreatic head adjacent to the duodenum. There was no sign of any definitive pancreatic mass. There was evidence of fatty liver. There was no definitive evidence of biliary obstruction. IMPRESSION: Given the patient's clinical history, I am most concerned about a possible neoplasm in the area of the duodenum given the ongoing issues with bleeding, significant weight loss, and ongoing symptoms of at least a partial gastric outlet obstruction. This would be atypical behavior for routine peptic ulcer disease. At this point, he will undergo an upper endoscopy tomorrow with either myself or Dr. Moore. Depending upon the endoscopic findings, we could proceed with repeat biopsies and/or brushings of the area, as well as possible balloon dilation if it seems to be amenable to that. Full consent is obtained from him for this, including risks of bleeding and perforation. The procedure will be done with monitored anesthesia care, or possible general anesthesia given the symptoms that he is having of some gastric outlet obstruction. I will leave that decision up to the anesthesiologist. In the meantime, I will continue transfusions as needed and IV PPI. This has all been discussed in detail with the patient and he is comfortable with this plan. MD ORACIO Hussein/JANA / [id number] TD
[2023-07-01 06:50] LABS: Hematocrit 33.7 % (42.0-52.0); Hemoglobin 10.6 g/dl (14.0-18.0); Mean Corpuscular HGB Conc 31.5 g/dl (31.0-36.0); Mean Corpuscular Hemoglobin 23.8 pg (27.0-33.0); Mean Corpuscular Volume 75.7 fL (80.0-98.0); Mean Platelet Volume 8.9 fL (9.4-12.4); Platelet Count 262 X10*3/uL (160-400); Red Blood Count 4.45 X10*6/uL (4.60-5.80); Red Cell Distribution Width 21.4 % (11.0-16.0); White Blood Count 5.7 X10*3/uL (4.8-10.8)
[2023-07-01 07:07] LABS: Anion Gap 11 (12-20); Blood Urea Nitrogen 9 mg/dL (9-16); Calcium 8.8 mg/dL (8.4-10.2); Carbon Dioxide 26 mmol/L (22-29); Chloride 108 mmol/L (96-108); Estimated Glomerular Filt Rate > 60; Glucose Random 86 mg/dL (60-115); Potassium 4.1 mmol/L (3.3-5.1); Sodium 141 mmol/L (135-145)
[2023-07-01] MEDS: 0.9 % Sodium Chloride Flush 3 ML SYRINGE IVFLUSH ×2 (08:39→17:46)
[2023-07-01] MEDS: Pantoprazole Sodium 40 MG/10 ML VIAL IVPUSH ×2 (08:39→20:19)
--- NOTE | 2023-07-01 12:10 | MHC.CLN ---
PT IS MODERATELY MALNOURISHED PT WITH MILDLY DEPLETED SUBCUTANEOUS FAT AND MUSCLE MASS WITH BMI 18 AND 14% NONSIGNIFICANT WT LOSS X 2 YEARS AND CHRONIC POOR PO INTAKE WITH N/V AND EARLY SATIETY EGD SCHEDULED PER GI DIET RX NPO WHEN DIET TO ADVANCE, RECOMMEND ADDING ENSURE TID TO PROVIDE 1050KCALS, 60G PROTEIN TO INCREASE KCALS AND PROMOTE WT GAIN MONITOR FOR DIET ADVANCEMENT SEE ALSO FULL CLINICAL NUTRITION ASSESSMENT
--- NOTE | 2023-07-01 13:21 | HO.ANESPROP2 ---
[facility] Active Problems Active Problems: All Active Problems (Updated 06/30/23 @ 00:36 by Santiago Sanchez MD) Nondiabetic gastroparesis (Acute) Hyperlipidemia (Acute) Severe anemia (Acute) Acute upper GI bleed (Acute) Duodenal ulcer (Acute) Past Medical History Medical History HTN (hypertension) Partial gastric outlet obstruction Peptic ulcer Nondiabetic gastroparesis Hyperlipidemia Hypertension, essential Anemia H. pylori infection Family History Family history of problems with anesthesia: No Surgical History Surgical History H/O colonoscopy History of esophagogastroduodenoscopy (EGD) History of Problems with Anesthesia: No Social History Social History Household Members: Family Housing: House Do you presently have visiting nurse or other home services: No Alcohol intake: current Alcohol intake frequency: holidays/special occasions only Patient Tobacco Use Status: Current everyday Tobacco user Tobacco use type: Cigarette e-Cigarette/Vaping Use: Currently Using service: No Meds Allergies Allergy/AdvReac Type Severity Reaction Status Date / Time No Known Allergies Allergy Verified 07/01/23 13:15 Active Medications: Current Medications Metoclopramide HCl (Metoclopramide Hcl 10 Mg/2 Ml Vial) 5 mg IVPUSH Q6H PRN PRN Reason: Nausea and Vomiting Pantoprazole Sodium (Pantoprazole Sodium 40 Mg/10 Ml Vial) 40 mg IVPUSH Q12H [facility] Last Admin: 07/01/23 08:39 Dose: 40 mg Sodium Chloride (0.9 % Sodium Chloride Flush 3 Ml Syringe) 3 ml IVFLUSH QSHIFT [facility] Last Admin: 07/01/23 08:39 Dose: 3 ml Home Medications Medication Instructions Recorded Confirmed Last Taken Type atorvastatin 20 mg tablet 20 mg PO DAILY 04/21/23 06/29/23 06/28/23 History Exam Height,Weight and Vital Signs: Height 5 ft 8 in Weight 54.431 kg Last Vital Signs Temp 97.3 F 07/01/23 11:09 Pulse 58 07/01/23 11:09 Resp 18 07/01/23 11:09 BP 103/70 07/01/23 11:09 Pulse Ox 98 07/01/23 11:09 O2 Del Method Room Air 07/01/23 11:09 Pertinent Lab Results Pertinent Lab Results: Laboratory Tests 06/29/23 06/29/23 06/30/23 21:17 21:37 04:45 WBC 6.4 RBC 3.53 L Hgb 8.0 L D Hct 26.3 L MCV 74.5 L MCH 22.7 L MCHC 30.4 L RDW 21.2 H Plt Count 276 D MPV 8.7 L Immature Gran % (Auto) Neut % (Auto) Lymph % (Auto) [place] % (Auto) Eos % (Auto) Baso % (Auto) Lymph # (Auto) [place] # (Auto) Eos # (Auto) Baso # (Auto) Abs Immat Gran (auto) Absolute Neuts (auto) Absolute Nucleated RBC 0.000 Nucleated RBC % (auto) 0.0 PT 11.6 INR 1.0 Sodium 142 142 Potassium 3.8 3.7 Chloride 107 110 H Carbon Dioxide 26 24 Anion Gap 13 12 BUN 17 H 16 Creatinine 0.81 0.65 Estim Creat Clear Calc 77.4 96.5 Estimated GFR > 60 > 60 Random Glucose 104 98 Calcium 9.1 8.5 D Magnesium 1.8 Total Bilirubin 0.4 1.0 AST 19 17 ALT 11 10 Alkaline Phosphatase 58 52 Total Protein 6.6 5.5 L Albumin 3.7 3.1 L Stool Occult Blood POSITIVE Blood Type A Positive Antibody Screen NEGATIVE Crossmatch See Detail 06/30/23 07/01/23 11:00 06:17 WBC 5.9 5.7 RBC 3.48 L 4.45 L D Hgb 7.9 L 10.6 L D Hct 25.8 L 33.7 L D MCV 74.1 L 75.7 L MCH 22.7 L 23.8 L MCHC 30.6 L 31.5 RDW 21.0 H 21.4 H Plt Count 303 262 MPV 8.6 L 8.9 L Immature Gran % (Auto) 0.2 Neut % (Auto) 62.7 Lymph % (Auto) 21.6 [place] % (Auto) 11.4 H Eos % (Auto) 3.1 Baso % (Auto) 1.0 Lymph # (Auto) 1.3 [place] # (Auto) 0.7 Eos # (Auto) 0.2 Baso # (Auto) 0.1 Abs Immat Gran (auto) 0.01 Absolute Neuts (auto) 3.7 Absolute Nucleated RBC 0.000 0.000 Nucleated RBC % (auto) 0.0 0.0 PT INR Sodium 141 Potassium 4.1 Chloride 108 Carbon Dioxide 26 Anion Gap 11 L BUN 9 Creatinine 0.66 Estim Creat Clear Calc 95.0 Estimated GFR > 60 Random Glucose 86 Calcium 8.8 Magnesium Total Bilirubin AST ALT Alkaline Phosphatase Total Protein Albumin Stool Occult Blood Blood Type Antibody Screen Crossmatch Airway Mallampati Class: II TM Dist: >3cm Neck ROM: Full Denture: Upper and Lower Assessment and Plan Assessment Anesthesia Assessment: Anesthesia Plan Discussed and Chart Reviewed Final Anesthetic Review Family History of Problems with Anesthesia: No History of Problems with Anesthesia: No NPO: Yes ASA Class: III and Emergency Final Preanesthetic Review: No Changes in Pt Med Stat, Meds/Allgs Chart Reviewed, Consent Obtained/Reviewed and Anes Risks/Benef Reviewed Patient Risk: Intermediate Procedure Risk: Low Anesthetic Plan Anesthetic Plan: TIVA Disposition: Standard PACU
--- NOTE | 2023-07-01 13:36 | PC.NURSE ---
Patient arrived to preop. #18 left FA and #18 left upper arm. Both sites asymptomatic, flushed well.
--- NOTE | 2023-07-01 14:33 | PM.OP ---
Brief Operative Note Date of Service: 07/01/23 Pre-op diagnosis: gastric outlet obstruction Post-op diagnosis: same Procedure: EGD Surgeon: Gera Moore MD Anesthesia: MAC Was an Log Chain Worker used for this Procedure?: No Estimated blood loss (mL): 5 Pathology: other Condition: stable Disposition: PACU
--- NOTE | 2023-07-01 14:33 | PM.EVENT ---
Event Note Date of Service: 07/01/23 Event Note: EGD ulcerated duodenal bulb causing gastric outlet obstruction biopsies obtained retained food in stomach balloon dilation 10-12 mm done rec: f/u bx results continue ppi surgical consult Time Spent With Patient Time: Total time managing care of this patient today ____ minutes.
--- NOTE | 2023-07-01 14:43 | P.PNIM_ITS ---
Subjective Subjective Date of Service: 07/01/23 Interval History: anemia ,possible upper Gib Review of Systems no new bleeding or abd pain Physical Exam 2 Vital Signs: Vital Signs: Last Vital Signs Temp 98.3 F 07/01/23 13:27 Pulse 59 07/01/23 13:27 Resp 16 07/01/23 13:27 BP 103/73 07/01/23 13:27 Pulse Ox 98 07/01/23 13:27 O2 Del Method Room Air 07/01/23 13:27 BMI result Body Mass Index 18.2 Appearance: Alert.? Oriented X3.? cvs: [id number], [id number] . res: clear to auscultation ,no rhonchii or wheezing abd: no rebound or guarding ,nt, bs present. ext pulses present , no cyanosis . neuro: axo3 , nonfocal. Objective Data Active Medications Metoclopramide HCl (Metoclopramide Hcl 10 Mg/2 Ml Vial) 5 mg IVPUSH Q6H PRN PRN Reason: Nausea and Vomiting Pantoprazole Sodium (Pantoprazole Sodium 40 Mg/10 Ml Vial) 40 mg IVPUSH Q12H [facility] Last Admin: 07/01/23 08:39 Dose: 40 mg Documented By: SUZI Sodium Chloride (0.9 % Sodium Chloride Flush 3 Ml Syringe) 3 ml IVFLUSH QSHIFT [facility] Last Admin: 07/01/23 08:39 Dose: 3 ml Documented By: SUZI Labs 07/01/23 06:17 07/01/23 06:17 Labs: Laboratory Results - last 24 hr 06/29/23 07/01/23 21:17 06:17 MCV 75.7 L MCH 23.8 L MCHC 31.5 RDW 21.4 H Plt Count 262 MPV 8.9 L Absolute Nucleated RBC 0.000 Nucleated RBC % (auto) 0.0 Anion Gap 11 L Estim Creat Clear Calc 95.0 Estimated GFR > 60 Random Glucose 86 Calcium 8.8 Blood Type A Positive Antibody Screen NEGATIVE Crossmatch See Detail Assessment and Plan (1) Nondiabetic gastroparesis: Status: Acute (2) Severe anemia: Status: Acute (3) Duodenal ulcer: Status: Acute Plan 58 years old man admitted with: Acute blood loss anemia likely secondary to upper GI bleeding due to PUD. s/p 3 prbc h/h stable around 10.6/33.7. CT/CT abdomen :Improved but incompletely resolved thickening of the gastric pylorus and the duodenal bulb. There is inflammatory stranding or fluid between,these structures and the pancreatic head without an organized fluid collection. EGD:ulcerated duodenal bulb causing gastric outlet obstruction: Biopsies obtained, balloon dilation 10 -12 mm done. plan: npo, hydration,Continue to monitor H&H,also Protonix 40 mg IV every 12 hours. surgery eval for-gastric outlet obstruction Idiopathic gastroparesis. Reglan as needed. Hyperlipidemia. Continue statin when able. DVT prophylaxis: SCDs only ongoinh need hospitalization for Acute blood loss anemia likely secondary to upper GI bleeding due to PUD: need PRBC transfusion, h/h monitering,treatment with Protonix IV and evaluation by gastroenterology service for EGD. Quality Stroke Does the patient have a stroke diagnosis?: No VTE Prior VTE?: No VTE Risk Level:: Medical - moderate - high VTE Device Contraindication: N/A - Device Ordered VTE Drug Contraindication: Treatment Not Indicated
[2023-07-01 15:05] LABS: INTERNATIONAL NORM RATIO 1.1 (0.9-1.1); Prothrombin Time 13.5 SEC (11.1-13.3)
--- NOTE | 2023-07-01 15:08 | P.CDIM_ITS ---
PROVIDER RESPONSE TEXT: To clarify, the appropriate diagnosis supported by the clinical indicators: Underweight QUERY TEXT: PHYSICIAN'S DOCUMENTATION REQUEST Date of Query: 07/01/2023 11:24 AM EDT Patient Name: Rodney Dawn Admit Date: 06/30/2023 Dear Prince Culp, A review of the medical record indicates additional documentation may be needed. Please review below and update the documentation accordingly. Clinical Indicators: BMI 18.2 5ft 8in 54.431kg total protein 5.5 albumin 3.1 If possible, please provide an associated diagnosis related to the abnormal BMI, such as: Underweight Weight loss Cachexia Anorexia Other (explain) Clinically unable to determine (explain) Thank you, Erum Gonzalez, CCS, CDIS Use of terms such as suspected, likely, concern for, or probable (associated with a specific diagnosi s that is being evaluated, monitored, or treated as if it exists) are acceptable and can be coded in the inpatient se tting, when documented at the time of discharge. Please use your independent medical judgment in providing your response. THIS QUERY IS PART OF THE PERMANENT MEDICAL RECORD
--- NOTE | 2023-07-01 15:20 | OP_ITS ---
DATE OF SERVICE: 07/01/2023 SURGEON: Gera Moore MD INDICATIONS: Gastric outlet obstruction. PREOPERATIVE DIAGNOSIS: POSTOPERATIVE DIAGNOSIS: PROCEDURE PERFORMED: Upper endoscopy with biopsy and balloon dilation. ESTIMATED BLOOD LOSS: COMPLICATIONS: ANESTHESIA: Monitored anesthesia care. ASSISTANTS: SPECIMENS: DESCRIPTION OF PROCEDURE: A history and physical was performed. The risks and benefits of the procedure were explained to the patient and informed consent was obtained. The patient was placed in the left lateral decubitus position. The Olympus video gastroscope was introduced into the esophagus, stomach, and duodenum. Examination was performed and the scope was removed. He tolerated the procedure well and was taken to recovery area in stable condition. FINDINGS: Esophagus: The esophagus showed a mild distal esophagitis. Stomach: The stomach showed a large amount of retained food. There was no ulceration in the body of the stomach. Duodenum: There was ulceration involving the duodenal bulb. The scope eventually was able to be passed through this into the 2nd portion, which appeared normal. Biopsies were obtained from this area. The bulb and junction between the bulb and the 2nd portion was abnormal with ulceration and narrowing suspicious for possible underlying malignancy. Biopsies were obtained from the duodenal bulb and balloon dilation at 10 and 12 mm. IMPRESSION: Gastric outlet obstruction with duodenal ulceration as above. RECOMMENDATIONS: 1. Follow up the biopsy results. 2. Surgical consultation for possible gastric bypass. MD CANDICE Taylor/JANA / [id number] MTDD
[2023-07-01 18:45] LABS: Hematocrit 34.3 % (42.0-52.0); Hemoglobin 10.9 g/dl (14.0-18.0)
[2023-07-01] MEDS: Dextrose 5 % and 0.9 % NaCl 1,000 ML 80 ML IVCONT (20:10)
[2023-07-02] VITALS (7 sets, daily range): BP systolic 94–112; BP diastolic 59–69; PULSE 50–65; RESP 18–20; TEMP 36.1–36.7; O2SAT 97–99
--- NOTE | 2023-07-02 05:57 | PM.CNGS ---
History of Present Illness Consult details Consult date: 07/02/23 <Bryn Gil MD - Last Filed: 07/02/23 06:01> Narrative: Patient is a 58 yo male s/p upper endoscopy demonstrating significant duodenal bulb ulcer causing gastric outlet obstruction.He underwent balloon dilation as well. <Bryn Gil MD - Last Filed: 07/02/23 06:01> Patient is a 58 yo male with PMH of GERD, PUD, idiopathic gastroparesis, hyperlipidemia who initially presented to the ED with complaints of progressively worsening shortness of breath and black tarry stools. Upon work up in the ED he was found to be anemic and was admitted to the hospitalists service for further treatment. He was previously admitted to the hospital in 05/06 for acute on chronic blood loss symptomatic anemia requiring transfusion. He underwent EGD during that admission and was found to have a duodenal ulcer. He requiring transfusion again during this admission and he had an upper endoscopy yesterday demonstrating ulcerated duodenal bulb causing gastric outlet obstruction. Balloon dilation was also performed. Biopsies were obtained. He reports he did well following the initial EGD and was able to eat until a few weeks ago. He then developed shortness of breath over the last few weeks. This morning, the patient reports having a full breakfast of eggs, toast and he has tolerated this without any nausea, vomiting, abd pain or abd distention. He does report a significant involuntary weight loss over the past few months. <Iqra Bhatti PA-C - Last Filed: 07/02/23 13:13> Review of Systems Constitutional: Constitutional: Denies chills, Denies fever(s) and Reports weight loss <Iqra Bhatti PA-C - Last Filed: 07/02/23 13:13> ENT: Denies dizziness <MEJIA Connors Last Filed: 07/02/23 13:13> Cardiovascular: Cardiovascular: Denies chest pain and Reports dyspnea <MEJIA Connors Last Filed: 07/02/23 13:13> Respiratory: Respiratory: Reports dyspnea <MEJIA Connors Last Filed: 07/02/23 13:13> Gastrointestinal: Gastrointestinal: Reports as per HPI <MEJIA Connors Last Filed: 07/02/23 13:13> Integumentary/Breasts: Skin/Breast: Denies rash and Denies jaundice <Iqra Bhatti PA-C - Last Filed: 07/02/23 13:13> Neurologic: Denies dizziness <Iqra Bhatti PA-C - Last Filed: 07/02/23 13:13> [facility] Past Medical History Medical History: Medical History HTN (hypertension) Partial gastric outlet obstruction Peptic ulcer Nondiabetic gastroparesis Hyperlipidemia Hypertension, essential Anemia H. pylori infection <Bryn Gil MD - Last Filed: 07/02/23 06:01> Surgical History Surgical History: Surgical History H/O colonoscopy History of esophagogastroduodenoscopy (EGD) <Bryn Gil MD - Last Filed: 07/02/23 06:01> Social History Social History: Social History Household Members: Family Housing: House Do you presently have visiting nurse or other home services: No Alcohol intake: current Alcohol intake frequency: does not drink Patient Tobacco Use Status: Current everyday Tobacco user Tobacco use type: Cigarette Cigarette Packs Per Day: 0.5 Cigarettes Per Day: 10.0 Years Smoked: 40 e-Cigarette/Vaping Use: Currently Using service: No <Bryn Gil MD - Last Filed: 07/02/23 06:01> Meds Allergies/Adverse reactions: Allergies Allergy/AdvReac Type Severity Reaction Status Date / Time No Known Allergies Allergy Verified 07/01/23 13:15 <Bryn Gil MD - Last Filed: 07/02/23 06:01> Active Medications: Current Medications Dextrose/Sodium Chloride (D5ns) 1,000 mls @ 80 mls/hr IVCONT .[id number] [facility] Last Admin: 07/01/23 20:10 Dose: 80 mls/hr Metoclopramide HCl (Metoclopramide Hcl 10 Mg/2 Ml Vial) 5 mg IVPUSH Q6H PRN PRN Reason: Nausea and Vomiting Pantoprazole Sodium (Pantoprazole Sodium 40 Mg/10 Ml Vial) 40 mg IVPUSH Q12H [facility] Last Admin: 07/01/23 20:19 Dose: 40 mg Sodium Chloride (0.9 % Sodium Chloride Flush 3 Ml Syringe) 3 ml IVFLUSH QSHIFT [facility] Last Admin: 07/01/23 23:16 Dose: Not Given <Bryn Gil MD - Last Filed: 07/02/23 06:01> Home medications: Home Medications Medication Instructions Recorded Confirmed Last Taken Type atorvastatin 20 mg tablet 20 mg PO DAILY 04/21/23 06/29/23 06/28/23 History <Bryn Gil MD - Last Filed: 07/02/23 06:01> Physical Exam Vital Signs: Vital Signs: Last Vital Signs Temp 97.3 F 07/02/23 03:44 Pulse 62 07/02/23 03:44 Resp 20 07/02/23 03:44 BP 103/59 L 07/02/23 03:44 Pulse Ox 98 07/02/23 03:44 O2 Del Method Room Air 07/02/23 03:44 O2 Flow Rate 6 07/01/23 14:39 BMI result Body Mass Index 18.2 <Bryn Gil MD - Last Filed: 07/02/23 06:01> Const: General: comfortable, no acute distress and alert <Iqra Bhatti PA-C - Last Filed: 07/02/23 13:13> Orientation/consciousness: patient oriented x3 <Iqra Bhatti PA-C - Last Filed: 07/02/23 13:13> Resp: Effort & Inspection: normal respiratory effort <Iqra Bhatti PA-C - Last Filed: 07/02/23 13:13> GI: Inspection: Yes normal to inspection, No distended and No scar <MEJIA Connors Last Filed: 07/02/23 13:13> Palpation (GI): Soft to palpation, nontender, no guarding and not rigid <Iqra Bhatti PA-C - Last Filed: 07/02/23 13:13> Percussion: Yes normal to percussion <Iqra Bhatti PA-C - Last Filed: 07/02/23 13:13> Skin: General skin exam: no rashes or lesions noted and no jaundice <Iqra Bhatti PA-C - Last Filed: 07/02/23 13:13> Neuro: General: patient oriented x3 and moves all extremities <Iqra Bhatti PA-C - Last Filed: 07/02/23 13:13> Results Labs Result diagrams: 07/01/23 18:40 07/01/23 06:17 <Bryn Gil MD - Last Filed: 07/02/23 06:01> Labs: Abnormal lab results 07/01/23 07/01/23 07/01/23 Range/Units 06:17 14:44 18:40 RBC 4.45 L D (4.60-5.80) X10*6/uL Hgb 10.6 L D 10.9 L (14.0-18.0) g/dl Hct 33.7 L D 34.3 L (42.0-52.0) % MCV 75.7 L (80.0-98.0) fL MCH 23.8 L (27.0-33.0) pg RDW 21.4 H (11.0-16.0) % MPV 8.9 L (9.4-12.4) fL PT 13.5 H (11.1-13.3) SEC Anion Gap 11 L (12-20) Short CBC 07/01/23 07/01/23 Range/Units 06:17 18:40 WBC 5.7 (4.8-10.8) X10*3/uL Hgb 10.6 L D 10.9 L (14.0-18.0) g/dl Hct 33.7 L D 34.3 L (42.0-52.0) % Plt Count 262 (160-400) X10*3/uL BMP 07/01/23 06:17 Sodium 141 Potassium 4.1 Chloride 108 Carbon Dioxide 26 BUN 9 Creatinine 0.66 Calcium 8.8 All other labs normal. <Bryn Gil MD - Last Filed: 07/02/23 06:01> Assessment and Plan (1) Duodenal ulcer: Status: Acute <Bryn Gil MD - Last Filed: 07/02/23 06:01> 58 year old male with duodenal ulcer causing gastric outlet obstruction requiring EGD, balloon dilatation yesterday. Today he is improved without any obstructive symptoms and is able to tolerate a solid diet. Given he is improved, cont supportive measures for now. However given his significant symptoms, if this continues to recur he may need surgical intervention. F/u biopsy results. <Iqra Bhatti PA-C - Last Filed: 07/02/23 13:13> Procedures Date of Service Date of Service: 07/02/23 <Bryn Gil MD - Last Filed: 07/02/23 06:01> 07/02/23 <Iqra Bhatti PA-C - Last Filed: 07/02/23 13:13>
[2023-07-02] MEDS: 0.9 % Sodium Chloride Flush 3 ML SYRINGE IVFLUSH ×2 (08:35→15:42)
[2023-07-02] MEDS: Dextrose 5 % and 0.9 % NaCl 1,000 ML 80 ML IVCONT ×2 (08:35→20:51)
[2023-07-02] MEDS: Pantoprazole Sodium 40 MG/10 ML VIAL IVPUSH ×2 (08:35→19:45)
--- NOTE | 2023-07-02 15:04 | HO.POSTANES ---
Post Anesthesia Evaluation Post Anesthesia Evaluation Date of Service: 07/02/23 Vital Signs: Vital Signs Temp Pulse Resp BP Pulse Ox O2 Del Method 07/02/23 11:40 98.0 F 59 20 112/63 97 Room Air 07/02/23 07:25 98.1 F 52 20 111/69 98 Room Air 07/02/23 03:44 97.3 F 62 20 103/59 L 98 Room Air Anesthesia: Monitored Mental Status: Awake Pain Control: Satisfactory Nausea/Vomiting: None Hydration: Adequate Anesthesia-Related Issues: No Anes. Related Issues
[2023-07-02] MEDS: Metoclopramide HCl 10 MG/2 ML VIAL 5 MG IVPUSH (15:42)
--- NOTE | 2023-07-02 16:05 | HO.PM.IMPN ---
Subjective Subjective Date of Service: 07/02/23 Interval History: Gastric outlet obstruction Review of Systems Patient says abdominal pain is somewhat improving Denies nausea or vomiting Physical Exam Vital Signs: Vital Signs: Last Vital Signs Temp 97.3 F 07/02/23 15:34 Pulse 65 07/02/23 15:34 Resp 18 07/02/23 15:34 BP 96/63 07/02/23 15:34 Pulse Ox 99 07/02/23 15:34 O2 Del Method Room Air 07/02/23 15:34 O2 Flow Rate 6 07/01/23 14:39 BMI result Body Mass Index 18.2 Appearance: Alert.? Oriented X3.? cvs: rrr, [id number] . res: clear to auscultation ,no rhonchii or wheezing abd: no rebound or guarding ,nt, bs present. ext pulses present , no cyanosis . neuro: axo3 , nonfocal. Objective Data Active Medications Dextrose/Sodium Chloride (D5ns) 1,000 mls @ 80 mls/hr IVCONT .[id number] [facility] Last Admin: 07/02/23 08:35 Dose: 80 mls/hr Documented By: PATRICIA Metoclopramide HCl (Metoclopramide Hcl 10 Mg/2 Ml Vial) 5 mg IVPUSH Q6H PRN PRN Reason: Nausea and Vomiting Last Admin: 07/02/23 15:42 Dose: 5 mg Documented By: PATRICIA Pantoprazole Sodium (Pantoprazole Sodium 40 Mg/10 Ml Vial) 40 mg IVPUSH Q12H [facility] Last Admin: 07/02/23 08:35 Dose: 40 mg Documented By: PATRICIA Sodium Chloride (0.9 % Sodium Chloride Flush 3 Ml Syringe) 3 ml IVFLUSH QSHIFT [facility] Last Admin: 07/02/23 15:42 Dose: 3 ml Documented By: PATRICIA Labs 07/01/23 18:40 07/01/23 06:17 Assessment and Plan (1) Nondiabetic gastroparesis: Status: Acute Plan 58 years old man admitted with: Acute blood loss anemia likely secondary to upper GI bleeding due to PUD. s/p 3 prbc h/h stable around 10.6/33.7. CT/CT abdomen :Improved but incompletely resolved thickening of the gastric pylorus and the duodenal bulb. There is inflammatory stranding or fluid between,these structures and the pancreatic head without an organized fluid collection. EGD:ulcerated duodenal bulb causing gastric outlet obstruction: Biopsies obtained, balloon dilation 10 -12 mm done. plan: npo, hydration,Continue to monitor H&H,also Protonix 40 mg IV every 12 hours. surgery eval for-gastric outlet obstruction Idiopathic gastroparesis. Reglan as needed. Hyperlipidemia. Continue statin when able. DVT prophylaxis: SCDs only ongoinh need hospitalization for Acute blood loss anemia likely secondary to upper GI bleeding due to PUD: need PRBC transfusion, h/h monitering,treatment with Protonix IV and evaluation by gastroenterology service for EGD. Quality Stroke Does the patient have a stroke diagnosis?: No VTE Prior VTE?: No VTE Risk Level:: Medical - moderate - high VTE Device Contraindication: N/A - Device Ordered VTE Drug Contraindication: Treatment Not Indicated
--- NOTE | 2023-07-02 16:30 | P.PNGI_ITS ---
Subjective Subjective Date of Service: 07/02/23 Interval History: Course noted. EGD findings reviewed with Dr. Moore. There hasn't been any real change from 04/2023 despite maximal medical therapy. Patient had old food in the stomach yesterday noted with the EGD despite at least 48-72 hours without po intake. He ate today but feels full and is having some regurgitation. Denies any BM's today, bleeding, abdominal pain, nor vomiting. Critical Care Time (minutes): 0 Physical Exam 2 Vital Signs: Vital Signs: Last Vital Signs Temp 97.3 F 07/02/23 15:34 Pulse 65 07/02/23 15:34 Resp 18 07/02/23 15:34 BP 96/63 07/02/23 15:34 Pulse Ox 99 07/02/23 15:34 O2 Del Method Room Air 07/02/23 15:34 O2 Flow Rate 6 07/01/23 14:39 BMI result Body Mass Index 18.2 Const: General: cooperative, comfortable, no acute distress, alert and awake Nutritional Appearance: malnourished, thin and underweight GI: Other: Soft, Nondistended, no mass/rebound/guarding Objective Data Labs 07/01/23 18:40 07/01/23 06:17 Labs: Laboratory Results - last 24 hr 07/01/23 18:40 Hgb 10.9 L Hct 34.3 L Procedures Date of Service Date of Service: 07/02/23 Progress Note: A&P Assessment and plan (1) Severe anemia: Status: Acute (2) Gastric out let obstruction: Status: Acute (3) Chronic duodenal ulcer with bleeding: Status: Acute Assessment and Plan: Imp: Patient has been stable and is without signs of active bleeding. The main concern is that of his chronic changes in the pyloric/duodenal area with narrowing with component of gastric outlet obstruction, friability, and bleeding despite maximal medical therapy. These changes, and his overall clinical appearance, makes me suspicious of an underlying neoplasm. Rec: Cut back his diet to full liquids with supplements. Continue IV PPI and prn Zofran. F/U Hgb. Check on path tomorrow, 07/02. Certainly if their is neoplasm on the biopsies he would need surgery for resection and bypass of the obstruction. If biopsies are negative for neoplasm I will still be strongly suspicious for an underlying submucosal neoplasm and he will still most likely need eventual surgery. He may need further evaluation at a tertiary center with an endoscopic U/S of the area and deeper biopsies, as well as possible evaluation by surgical oncologist. Will discuss with surgical consult. Would not discharge patient until we have a definitive plan in place for definitive treatment of this problem. D/W patient in detail and he is comfortable with this plan. Thanks. Time Spent With Patient Time: Total time managing care of this patient today ____ minutes. Quality Stroke Does the patient have a stroke diagnosis?: No VTE Prior VTE?: No VTE Risk Level:: Medical - moderate - high VTE Device Contraindication: N/A - Device Ordered VTE Drug Contraindication: Treatment Not Indicated
[2023-07-03 04:00] VITALS: BP 119/72; PULSE 76; RESP 20; TEMP 36.6; O2SAT 98
[2023-07-03 06:27] LABS: MANUAL DIFF FLAG NO
[2023-07-03 06:33] LABS: Basophils Absolute Auto 0.1 X10*3/uL (0.0-0.2); Basophils Percent Auto 1.1 % (0-2); Eosinophils Absolute Auto 0.2 X10*3/uL (0.0-0.4); Eosinophils Percent Auto 3.7 % (0-4); Hemoglobin 11.2 g/dl (14.0-18.0); Imm Gran Abs Auto 0.02 X10*3/uL (0.00-0.03); Imm Gran Pct Auto 0.3 % (0.0-0.4); Lymphocytes Absolute Auto 1.6 X10*3/uL (1.2-4.9); Lymphocytes Percent Auto 25.4 % (20-40); Mean Corpuscular HGB Conc 31.1 g/dl (31.0-36.0); Mean Corpuscular Hemoglobin 23.7 pg (27.0-33.0); Mean Corpuscular Volume 76.3 fL (80.0-98.0); Mean Platelet Volume 8.7 fL (9.4-12.4); Monocytes Absolute Auto 0.5 X10*3/uL (0.1-1.2); Monocytes Percent Auto 8.8 % (2-11); Neutrophils Absolute Auto 3.7 x10*3/uL (2.0-8.3); Neutrophils Percent Auto 60.7 % (45-73); Platelet Count 255 X10*3/uL (160-400); Red Blood Count 4.72 X10*6/uL (4.60-5.80); Red Cell Distribution Width 21.5 % (11.0-16.0); White Blood Count 6.2 X10*3/uL (4.8-10.8)
[2023-07-03 07:48] VITALS: BP 114/67; PULSE 60; RESP 18; TEMP 36.5; O2SAT 98
[2023-07-03] MEDS: 0.9 % Sodium Chloride Flush 3 ML SYRINGE IVFLUSH (08:03)
[2023-07-03] MEDS: Pantoprazole Sodium 40 MG/10 ML VIAL IVPUSH (08:03)
[2023-07-03] MEDS: Dextrose 5 % and 0.9 % NaCl 1,000 ML 80 ML IVCONT (08:05)
--- NOTE | 2023-07-03 10:45 | MHC.CLN ---
F/U PT IS MODERATELY MALNOURISHED PT WITH MILDLY DEPLETED SUBCUTANEOUS FAT AND MUSCLE MASS WITH BMI 18 AND 14% NONSIGNIFICANT WT LOSS X 2 YEARS AND CHRONIC POOR PO INTAKE WITH N/V AND EARLY SATIETY SEE FULL CLINICAL NUTRITION ASSESSMENT DATED 07/01/23 GI FOLLOWING DIET ADVANCED TO FULL LIQUIDS 100% PO X 2 MEALS PT RECEIVING ENSURE TID PROVIDES 1050KCALS, 60G PROTEIN TO INCREASE KCALS AND PROMOTE WT GAIN MONITOR PO INTAKE AND ENCOURAGE SUPPLEMENTS
--- NOTE | 2023-07-03 10:58 | PM.PNGS ---
Subjective Subjective Date of Service: 07/03/23 Interval history: Developed belching and distention yesterday after eating solids. Started back on liquids and feels improved. Physical Exam Vital Signs: Vital Signs: Last Vital Signs Temp 97.7 F 07/03/23 07:48 Pulse 60 07/03/23 07:48 Resp 18 07/03/23 07:48 BP 114/67 07/03/23 07:48 Pulse Ox 98 07/03/23 07:48 O2 Del Method Room Air 07/03/23 07:48 O2 Flow Rate 6 07/01/23 14:39 BMI result Body Mass Index 18.2 Const: General: comfortable, no acute distress and alert Nutritional Appearance: thin and underweight Orientation/consciousness: patient oriented x3 Resp: Effort & Inspection: normal respiratory effort GI: Inspection: No distended Skin: General skin exam: no rashes or lesions noted Neuro: General: patient oriented x3 and moves all extremities Objective Data Active Medications Dextrose/Sodium Chloride (D5ns) 1,000 mls @ 80 mls/hr IVCONT .[id number] [facility] Last Admin: 07/03/23 08:05 Dose: 80 mls/hr Documented By: PATRICIA Ondansetron HCl (Ondansetron Hcl 4 Mg/2 Ml Vial) 4 mg IVPUSH Q4H PRN PRN Reason: Nausea Pantoprazole Sodium (Pantoprazole Sodium 40 Mg/10 Ml Vial) 40 mg IVPUSH Q12H [facility] Last Admin: 07/03/23 08:03 Dose: 40 mg Documented By: PATRICIA Sodium Chloride (0.9 % Sodium Chloride Flush 3 Ml Syringe) 3 ml IVFLUSH QSHIFT [facility] Last Admin: 07/03/23 08:03 Dose: 3 ml Documented By: PATRICIA Labs 07/03/23 06:19 07/01/23 06:17 Labs: Laboratory Results - last 24 hr 07/03/23 06:19 MCV 76.3 L MCH 23.7 L MCHC 31.1 RDW 21.5 H Plt Count 255 MPV 8.7 L Immature Gran % (Auto) 0.3 Neut % (Auto) 60.7 Lymph % (Auto) 25.4 [place] % (Auto) 8.8 Eos % (Auto) 3.7 Baso % (Auto) 1.1 Lymph # (Auto) 1.6 [place] # (Auto) 0.5 Eos # (Auto) 0.2 Baso # (Auto) 0.1 Abs Immat Gran (auto) 0.02 Absolute Neuts (auto) 3.7 Absolute Nucleated RBC 0.000 Nucleated RBC % (auto) 0.0 Procedures Date of Service Date of Service: 07/03/23 Progress Note: A&P Assessment and plan (1) Gastric out let obstruction: Status: Acute (2) Chronic duodenal ulcer with bleeding: Status: Acute Plan Discussed with GI who recommended surgical intervention despite biopsy results as there is concern for malignancy given nonhealing ulcer, weight loss. He was also unable to tolerate solid food yesterday. Lengthy discussion with patient and re: proceeding with at least partial gastrectomy for treatment, further diagnosis. This has been scheduled for Thursday of next week. He is asking to go home in the interim and will defer that to medicine if he is stable. Can continue full liquid diet with protein supplements in the mean time. Time Spent With Patient Time: Total time managing care of this patient today ____ minutes. Quality Stroke Does the patient have a stroke diagnosis?: No VTE Prior VTE?: No VTE Risk Level:: Medical - moderate - high VTE Device Contraindication: N/A - Device Ordered VTE Drug Contraindication: Treatment Not Indicated
[2023-07-03 11:17] VITALS: BP 101/62; PULSE 60; RESP 18; TEMP 36.6; O2SAT 99
[2023-07-03 11:35] VITALS: O2SAT 98
--- NOTE | 2023-07-03 13:30 | MHC.CM.PN ---
EMR REVIEWED, PT NOT TOLERATING SOLID DIET YESTERDAY AND BACK ON LIQUIDS, PER SURGICAL PLAN FOR PARTIAL GASTRECTOMY, NO PLAN FOR DC OVER W/E, CM WILL CONT TO FOLLOW DC NEEDS.
--- NOTE | 2023-07-03 13:50 | MHC.CM.PN ---
PT MEDICALLY CLEARED FOR DC HOME SELF CARE W/PT'S FOR TRANSPORT
--- NOTE | 2023-07-03 14:12 | PM.DS ---
DS: Providers Provider Date of Service: 07/03/23 Date of admission: 06/30/23 00:14 Date of discharge: 07/03/23 Primary care physician: VINITA Morrison Consults: 06/30/23 00:27 Consult to Gastroenterology Routine Consulting Provider: Getachew Baker Reason for consultation: Acute blood loss anemia Has provider been notified: Yes 07/01/23 14:42 Consult to General Surgery Routine Consulting Provider[place] [facility] Reason for consultation: gastric outlet obstruction,Pud Has provider been notified: No 07/01/23 14:44 Consult to General Surgery Routine Consulting Provider: [facility] Reason for consultation: gastric outlet obstruction Attending physician on discharge: Prince Culp Discharging clinician: Prince Culp DS: Diagnosis Discharge Diagnosis (1) Gastric out let obstruction: Status: Acute (2) Chronic duodenal ulcer with bleeding: Status: Acute DS: Summary Hospital Course Hospital Course: 58 years old man with past medical history significant for GERD, PUD, idiopathic gastroparesis and hyperlipidemia presents to the emergency department after he was found to have low hemoglobin on routine blood workup. He does complain of reflux and black stools. He denied abdominal pain, nausea, dizziness, headache or vomiting. Denied chills and fever. No blood in urine reported. He denied any cardiopulmonary symptoms. Denied use of NSAIDs or alcohol. He smokes tobacco daily. He was hospitalized in April of this year with diagnosis of acute on chronic blood loss symptomatic anemia secondary to possible focal ulceration of the lateral margin of the gastric pylorus. At that time he required blood transfusions and was found to have H pylori infection a received treatment with Pepto-Bismol, Flagyl, doxycycline and omeprazole. The, he was found to have stable vital signs. Blood workup showed hemoglobin of 6.4 (10:30 am) with low MCV. There are no electrolyte imbalances. BUN is slightly elevated. LFTs are normal. ED tx: Transfusion 2 units (currently receiving first unit), pantoprazole 80 mg IV. Hospital course: 58-year-old male came to the hospital because of history of melena found to have acute on chronic blood-loss anemia possible secondary to POD: Patient was started on PPI, transfer 3 PRBC: Subsequently patient has EGD done and found to have gastric outlet obstruction with ulcer, H&H seems to be improved-maintained around 10-11 range, surgery was consulted for gastric outlet obstruction, Gastric biopsy still pending: Discussed with GI and surgery patient is tolerating clear liquid diet patient will go home with that and outpatient surgery will be arranged for further management-currently continue PPIs. Monitor CBC outpatient with 1 week with PCP. plan: CBC outpatient in 1 week Follow-up with PCP. Follow-up with GI and surgery out patiently for further plan of gastric outlet obstruction. Assessment and plan coordination time spent 45 minute. Plan discussed with in detail with patient and his . Time Attestation Total time managing care of this patient today: 45 mintues. Discharge Coordination Time (in mins): 45 min Quality: Safe Use of Opioids Does Pt have an Active Cancer Diagnosis on the Problem List?: No Quality: Stroke Does the patient have a stroke diagnosis?: No Physical Exam Vital Signs: Vital Signs: Last Vital Signs Temp 97.9 F 07/03/23 11:17 Pulse 60 07/03/23 11:17 Resp 18 07/03/23 11:17 BP 101/62 07/03/23 11:17 Pulse Ox 98 07/03/23 11:35 O2 Del Method Room Air 07/03/23 11:35 O2 Flow Rate 6 07/01/23 14:39 BMI result Body Mass Index 18.2 Appearance: Alert.? Oriented X3. cvs: rrr, [id number] , no murmur res: clear to auscultation ,no rhonchii or wheezing abd: no rebound or guarding ,nt, bs present. ext pulses present , no cyanosis . neuro: axo3 , nonfocal. DS: Data Data Completed and Pending Completed studies during hospitalization [Text1]: Procedures Excision of Duodenum, Via Natural or Artificial Opening Endoscopic, Diagnostic (04/21/23) Excision of Stomach, Pylorus, Via Natural or Artificial Opening Endoscopic, Diagnostic (04/21/23) Transfusion of Nonautologous Red Blood Cells into Peripheral Vein, Percutaneous Approach (04/21/23) Pending studies at discharge: Pending at discharge 07/01/23 14:13 Surgical [PTH] Routine Labs on day of discharge: Laboratory Results - last 24 hr 07/03/23 06:19 WBC 6.2 RBC 4.72 Hgb 11.2 L Hct 36.0 L MCV 76.3 L MCH 23.7 L MCHC 31.1 RDW 21.5 H Plt Count 255 MPV 8.7 L Immature Gran % (Auto) 0.3 Neut % (Auto) 60.7 Lymph % (Auto) 25.4 [place] % (Auto) 8.8 Eos % (Auto) 3.7 Baso % (Auto) 1.1 Lymph # (Auto) 1.6 [place] # (Auto) 0.5 Eos # (Auto) 0.2 Baso # (Auto) 0.1 Abs Immat Gran (auto) 0.02 Absolute Neuts (auto) 3.7 Absolute Nucleated RBC 0.000 Nucleated RBC % (auto) 0.0 Imaging Chest x-ray: Radiologist's impression: ITS Impressions Abdomen CT 06/30/23 10:52 IMPRESSION: Improved but incompletely resolved thickening of the gastric pylorus and the duodenal bulb. There is inflammatory stranding or fluid between these structures and the pancreatic head without an organized fluid collection. Correlation with endoscopy is recommended. New tree-in-bud airspace disease in the inferior lingula consistent with bronchiolitis. Fleischner guidelines were followed. Discharge Plan Discharge Anticipated Discharge Date/Time: 07/03/23 13:36 Patient Disposition: Home, Self-Care Discharge Diagnosis: Acute on chronic blood-loss anemia,PUD,gastric outlet obstruction Referrals: Bryn Gil MD [Physician] - 1 Week Doug Hitchcock PA [Primary Care Provider] - 1 Week Discharge Medications: Continued atorvastatin 20 mg tablet 20 mg PO DAILY omeprazole 40 mg Capsule,Delayed Release(Dr/Ec) 40 mg PO BID@0630,1630 Qty: 120 0RF Discharge Orders: Discharge Order (Routine); Ordered 07/03/23 Ordered By: Prince Culp Diet: Advance to usual diet Activity on Discharge: As tolerated Stand Alone Forms: Patient Portal Discharge page, Work/School Release Other Ambulatory Orders: Complete Blood Count no Diff (Routine) Timeframe: 1 Week Facility: [facility] - Location: Laboratory Ordered By: Prince Culp Care Plan Goals: 58-year-old male came to the hospital because of history of melena found to have acute on chronic blood-loss anemia possible secondary to POD: Patient was started on PPI, transfer 3 PRBC: Subsequently patient has EGD done and found to have gastric outlet obstruction with ulcer, H&H seems to be improved-maintained around 10 range, surgery was consulted for gastric outlet obstruction, Gastric biopsy still pending: Discussed with GI and surgery patient is tolerating clear liquid diet patient will go home with that and outpatient surgery will be arranged for further management-currently continue PPIs. Monitor CBC outpatient with 1 week with PCP. Health Concerns: As above. Plan of Treatment: CBC outpatient in 1 week Follow-up with PCP. Follow-up with GI and surgery out patiently for further plan of gastric outlet obstruction. Assessment: As above.
== END 2023-07-03 14:54 | disposition home or self-care (01) | DRG 240 ==
LOC: HO.ED 06-30 00:08 → HO.EDOVER 06-30 00:20 → HO.IMC 06-30 15:39
PROVIDERS: Internal Medicine; Internal Medicine Gastroenterology; Physician Assistant Medical; Admitting Provider Internal Medicine; Emergency Provider Internal Medicine; PCP Physician Assistant Medical; Visit Provider Internal Medicine
PROC: 0DB98ZX Excision of Duodenum, Via Natural or Artificial Opening Endoscopic, Diagnostic (ICD-10-PCS; principal; 2023-07-01 13:50)
DX: C17.0 Malignant neoplasm of duodenum (principal); K26.4 Chronic or unspecified duodenal ulcer with hemorrhage; K31.1 Adult hypertrophic pyloric stenosis; E78.5 Hyperlipidemia, unspecified; F17.210 Nicotine dependence, cigarettes, uncomplicated; K31.84 Gastroparesis; D62 Acute posthemorrhagic anemia; R63.6 Underweight; Z68.1 Body mass index [BMI] 19.9 or less, adult; Z71.6 Tobacco abuse counseling; Z79.899 Other long term (current) drug therapy
CPT/HCPCS: 36415; 74160; 80048; 80053; 82272; 83735; 85014; 85018; 85025; 85027; 85610; 86850; 86900; 86901; 86923; 88305; 88313; 88341; 88342; 88360; 93005; 99285; C1726; C9113; J2704; J2765; P9016; Q9967

== ENCOUNTER → 2023-06-29 20:33 | Outpatient (BNV) | payer OTHER, SELFPAY | PROVIDERS: Admitting Provider Internal Medicine; Emergency Provider Internal Medicine; PCP Physician Assistant Medical; Visit Provider Internal Medicine | DX: D50.0 Iron deficiency anemia secondary to blood loss (chronic) (principal); R94.31 Abnormal electrocardiogram [ECG] [EKG] | CPT/HCPCS: 93010 ==

== ENCOUNTER → 2023-06-30 00:14 | Outpatient (BNV) | payer OTHER, SELFPAY | PROVIDERS: Admitting Provider Internal Medicine; Emergency Provider Internal Medicine; PCP Physician Assistant Medical; Visit Provider Internal Medicine | DX: D64.9 Anemia, unspecified (principal); K92.2 Gastrointestinal hemorrhage, unspecified; E78.5 Hyperlipidemia, unspecified; K31.84 Gastroparesis | CPT/HCPCS: 99222; 99232; 99239; 99499 ==

== ENCOUNTER → 2023-06-30 00:14 | Outpatient (BNV) | payer OTHER, SELFPAY | PROVIDERS: Admitting Provider Internal Medicine; Emergency Provider Internal Medicine; PCP Physician Assistant Medical; Visit Provider Physician Assistant Surgical | DX: K31.1 Adult hypertrophic pyloric stenosis (principal); K26.4 Chronic or unspecified duodenal ulcer with hemorrhage | CPT/HCPCS: 99222; 99232 ==

== ENCOUNTER 2023-07-10 06:08 | Emergency (ER) | payer OTHER, SELFPAY ==
--- NOTE | ~2023-07-10 | CT_ITS ---
EXAMINATION: CT ABDOMEN AND PELVIS WITH CONTRAST CLINICAL INFORMATION: Right upper quadrant pain. Known gastric outlet obstruction. COMPARISON: Previous CT of the abdomen and pelvis April and June 2023 TECHNIQUE: Multidetector volumetric images were obtained from the superior aspect of the liver through the pubic symphysis following administration 85 mL of Omnipaque 350 intravenous contrast. Sagittal and coronal reformatted images were obtained on the technologist's workstation. Oral contrast: Yes This CT examination was performed using dose optimization techniques as appropriate, variously including the following: *Automated exposure control *Adjustment of mA and/or kV according to patient size (this includes techniques or standardized protocols for targeted exams where dose is matched to indication/reason for exam; i.e. extremities or head) *Use of iterative reconstruction technique DLP: 314 mGy-cm FINDINGS: LUNG BASES: 5 nodules in the inferior lingula and left lower lobe LIVER, GALLBLADDER, AND BILIARY TREE: The liver is normal in size, shape, and attenuation. No focal hepatic lesion or biliary ductal dilatation is present. The gallbladder is unremarkable with no evidence of radiopaque gallstones, gallbladder wall thickening, or obvious pericholecystic inflammatory changes. PANCREAS: Unremarkable. SPLEEN: Unremarkable. ADRENAL GLANDS: Unremarkable. KIDNEYS AND URETERS: The kidneys are normal in size, shape, and attenuation. No hydronephrosis, hydroureter, or calculi seen. No perinephric stranding. BLADDER: Small 4 mm increased density at the base of the bladder to the right of midline. Axial image 79 series 3, coronal reconstructed image 49 and sagittal image 50. GASTROINTESTINAL TRACT: Stomach and proximal duodenum appear dilated and fluid-filled. There is again wall thickening and wall edema of the distal stomach/pylorus. On this exam there is a narrow space between the SMA and the aorta. This is not seen on earlier exam from this month or April 2023 exam and this may be due to degree of inspiration or expiration. Stool in the colon suggestive of constipation. Small and large bowel otherwise normal. Normal appendix. Ascites. ABDOMINAL WALL: No significant hernia is appreciated. LYMPH NODES: Normal. VASCULAR: Atherosclerotic disease. No aneurysm. PELVIC VISCERA: Upper normal-size prostate gland. OSSEOUS Structures: bilateral L5 pars defects without anterolisthesis. CT/CT abdomen pelvis w IV con IMPRESSION: Dilated fluid-filled stomach and proximal duodenum. There is still wall thickening and wall edema of the distal stomach/lower is. Constipation. Trace ascites. Small 4 mm nodule adjacent to the bladder wall at the right lung base. It is uncertain whether this is related to nodular lobulated contour of the prostate gland or could represent a bladder lesion. Follow-up bladder ultrasound or cystoscopy recommended. Tree in bud nodules in the lingula and left lower lobe suggestive of mild airways disease. Fleischner guidelines were followed.
--- NOTE | ~2023-07-10 | US_ITS ---
EXAMINATION: US ABDOMEN LIMITED CLINICAL INFORMATION: Right upper quadrant pain. COMPARISON: Previous CT of the abdomen and pelvis June 30, 2023 and abdominal ultrasound June 2019 TECHNIQUE: Real-time imaging of the gallbladder FINDINGS: The gallbladder is normal in size. No gallstones. No gallbladder wall thickening or edema. No pericholecystic fluid. The common bile duct does not appear dilated measuring 3 mm. The stomach is distended and fluid-filled. US/US abdomen limited IMPRESSION: Normal-appearing gallbladder. Distended fluid-filled stomach.
[2023-07-10 06:15] VITALS: BP 138/76; BP 139/85; PULSE 78; PULSE 90; RESP 17; TEMP 36.2; O2SAT 98; O2SAT 99; BMI 17.5
[2023-07-10 06:37] LABS: MANUAL DIFF FLAG NO
[2023-07-10 06:49] LABS: Basophils Absolute Auto 0.1 X10*3/uL (0.0-0.2); Basophils Percent Auto 0.6 % (0-2); Eosinophils Absolute Auto 0.3 X10*3/uL (0.0-0.4); Eosinophils Percent Auto 2.1 % (0-4); Hemoglobin 13.2 g/dl (14.0-18.0); Imm Gran Abs Auto 0.07 X10*3/uL (0.00-0.03); Imm Gran Pct Auto 0.5 % (0.0-0.4); Lymphocytes Absolute Auto 1.3 X10*3/uL (1.2-4.9); Lymphocytes Percent Auto 9.9 % (20-40); Mean Corpuscular HGB Conc 30.7 g/dl (31.0-36.0); Mean Corpuscular Hemoglobin 23.1 pg (27.0-33.0); Mean Corpuscular Volume 75.3 fL (80.0-98.0); Mean Platelet Volume 8.9 fL (9.4-12.4); Monocytes Percent Auto 7.4 % (2-11); Neutrophils Absolute Auto 10.6 x10*3/uL (2.0-8.3); Neutrophils Percent Auto 79.5 % (45-73); Platelet Count 272 X10*3/uL (160-400); Red Blood Count 5.71 X10*6/uL (4.60-5.80); White Blood Count 13.3 X10*3/uL (4.8-10.8)
[2023-07-10 06:55] LABS: Alanine Aminotransferase 9 U/L (0-40); Alkaline Phosphatase 74 U/L (39-117); Anion Gap 14 (12-20); Aspartate Amino Transferase 15 U/L (5-37); Bilirubin Total 1.4 mg/dL (0.0-1.0); Blood Urea Nitrogen 22 mg/dL (9-16); Carbon Dioxide 28 mmol/L (22-29); Chloride 102 mmol/L (96-108); Creatinine Clr Calc Pharmacy 63.9; Estimated Glomerular Filt Rate > 60; Glucose Random 120 mg/dL (60-115); Lipase 17 U/L (8-78); Potassium 4.7 mmol/L (3.3-5.1); Sodium 139 mmol/L (135-145); Total Protein 7.5 g/dL (6.5-8.0)
--- NOTE | 2023-07-10 08:24 | ED_ITS ---
HPI - General Adult General Chief complaint: Abdominal Pain Stated complaint: ABDOMINAL PAIN Time Seen by Provider: 07/10/23 08:22 Source: patient and family Mode of arrival: ambulatory Limitations: no limitations History of Present Illness HPI narrative: Patient is a 58-year-old male with history chronic duodenal ulcer with bleeding, gastric outlet obstruction, gastroparesis, anemia, HLD presenting to the emergency department with complaint of right upper quadrant abdominal pain since last night. Patient's states that she called Dr. Baker last night who told her she could give patient 2 tabs of tramadol which he took with little relief. Patient states that the pain abruptly increased around 4:00 a.m. and has been severe since. He reports nausea but denies vomiting. Denies any hematochezia or melena. Reports last bowel movement was approximately 4 days ago. Denies fevers. states patient has upcoming appointment with oncology and surgery scheduled for 07/29 for obstruction. MD complaint: abdominal pain Onset (ago): hour(s) Location: abdomen Radiation: non-radiation Severity: severe Quality: aching Pain Consistency: constant Relieving factors: none Exacerbating factors: movement Associated symptoms: nausea/vomiting Treatments prior to arrival: other (Tramadol) Related Data Home Medications Medication Instructions Recorded Confirmed atorvastatin 20 mg tablet 20 mg PO DAILY 04/21/23 06/29/23 Previous Rx's Medication Instructions Recorded omeprazole 40 mg capsule,delayed 40 mg PO BID@0630,1630 #120 caps 04/23/23 release polyethylene glycol 3350 17 17 g PO DAILY #119 grams 07/10/23 gram/dose oral powder (ClearLax) tramadol 50 mg tablet 50 mg PO Q8H PRN severe pain 07/10/23 (scale score 7-10) #6 tabs Allergies Allergy/AdvReac Type Severity Reaction Status Date / Time No Known Allergies Allergy Verified 07/01/23 13:15 Review of Systems 2 Review of Systems: As per HPI. Yes all other systems are reviewed and are negative Constitutional: Constitutional: Reports as per HPI [facility] Past Medical History Medical History (Updated 07/10/23 @ 15:54 by Preeti Mendez NP) HTN (hypertension) Partial gastric outlet obstruction Peptic ulcer Nondiabetic gastroparesis Hyperlipidemia Hypertension, essential Anemia H. pylori infection Surgical History H/O colonoscopy History of esophagogastroduodenoscopy (EGD) Social History Social History Household Members: Family Housing: House Do you presently have visiting nurse or other home services: No Alcohol intake: current Alcohol intake frequency: does not drink Patient Tobacco Use Status: Current everyday Tobacco user Tobacco use type: Cigarette Cigarette Packs Per Day: 0.5 Cigarettes Per Day: 10.0 Years Smoked: 40 Smoked in Last 30 Days: Yes e-Cigarette/Vaping Use: Currently Using Use of substances other than those prescribed or required for medical reasons: No Advance Directives: Yes Advance Directives on File: Yes Advance Directives Date on File: 07/06/23 service: No Physical Exam ED Vital Signs: Vital Signs - 24 hr 07/10/23 06:15 07/10/23 09:03 07/10/23 11:36 Temperature 97.2 F 98.4 F 99.1 F Pulse Rate 78 80 75 Respiratory Rate 17 14 18 Blood Pressure 139/85 142/79 H 119/71 Pulse Oximetry 98 99 100 Oxygen Delivery Method Room Air Room Air Room Air 07/10/23 14:24 Temperature 99.0 F Pulse Rate 78 Respiratory Rate 16 Blood Pressure 95/54 L Pulse Oximetry 97 Oxygen Delivery Method Room Air BMI result Body Mass Index 17.5 Const General: cooperative and no acute distress Nutritional Appearance: thin Orientation/consciousness: oriented to person, oriented to place, oriented to time and patient oriented x3 Limitations: no limitations HENMT Head: Yes normocephalic and Yes atraumatic Ears: external ears normal General nose exam: Normal external nose present Face and sinus: Yes face symmetric Mouth: oropharynx normal and moist mucous membranes Throat: Yes uvula midline Eyes Pupils: Equal, round and reactive pupils present Neck Neck: Yes normal visual inspection and Yes supple Resp Effort & Inspection: normal respiratory effort and able to speak in complete sentences Auscultation: clear to auscultation bilaterally Cardio Rate: regular rate Rhythm: regular rhythm Heart sounds: S1 normal heart sound present and S2 normal heart sound present GI Palpation (GI): Firmness to palpation present (GI) other (diffusely firm) and Tenderness to palpation present (GI) in the RUQ Auscultation: normoactive bowel sounds General: Yes no CVA tenderness Back/Spine/Pelvis Back: no CVA tenderness Skin General skin exam: elasticity normal and turgor normal Neuro General: oriented to person, oriented to place, oriented to time, patient oriented x3, moves all extremities, no focal motor deficits and CN's II-XI intact bilaterally Cranial nerves: Yes Equal, round and reactive pupils present Cognition (Neuro): normal cognition Extrem General: Yes full ROM, Yes no pedal edema and Yes no calf tenderness Psych Mental Status: mental status grossly normal Affect: normal affect Thought process: Normal thought process present Medications Administered Discontinued Medications Generic Name Dose Route Start Last Admin Trade Name Colby PRN Reason Stop Dose Admin Sodium Chloride 1,000 mls @ 999 mls/hr 07/10/23 08:45 07/10/23 10:43 Ns IV 07/10/23 09:45 Infused .Q1H1M IFEANYI Infusion Morphine Sulfate 2 mg 07/10/23 08:31 07/10/23 09:12 Morphine Sulfate 2 Mg/Ml Cartridge IVPUSH 07/10/23 08:32 2 mg ONCE ONE Administration Protocol Ondansetron HCl 4 mg 07/10/23 08:31 07/10/23 09:11 Ondansetron Hcl 4 Mg/2 Ml Vial IVPUSH 07/10/23 08:32 4 mg ONCE ONE Administration Medical Decision Making Medical Decision Making MDM Narrative: Patient is a 58-year-old male with history chronic duodenal ulcer with bleeding, gastric outlet obstruction, gastroparesis, anemia, HLD presenting to the emergency department with complaint of right upper quadrant abdominal pain since last night. On exam patient is awake, A+Ox3, VS WNL, afebrile, normal neurological exam without focal deficits, physical exam findings as above. Given reported symptoms and physical exam findings, initial differential includes PUD, anemia, pancreatitis. Labs notable for mild leukocytosis with left shift, elevated BUN, elevated Tbili, normal LFTs. Ultrasound notable for normal appearing gallbladder with distended fluid-filled stomach. CT abdomen pelvis shows dilated fluid-filled stomach and proximal duodenum with edema of the distal stomach as well as constipation, trace ascites, incidental bladder wall nodule. My interpretation is in agreement with the radiologist's interpretation. Case discussed with Dr. Alatorre who feels patient is stable for discharge home as long as he is vomiting, tolerating p.o. fluids and in no acute distress. Patient reports good pain relief with medications given in the ED and was able to tolerate small sips of water here. Also spoke with Dr. Baker via telephone who was in agreement with this plan. Strict return precautions discussed with patient and at bedside. Instructed patient to keep appointment on 07/15 with surgeon. Patient and verbalized understanding of and agreement with plan. Differential Diagnosis Differential Diagnoses: The differential diagnosis associated with the presentation includes As per [facility] Admission/Observation Consideration of admission/observation: Escalation of care including admission/observation considered Consult Healthcare Provider Management of the patient was discussed with: Bit Shaver (Dr. Alatorre, Dr. Baker) Lab Data [facility] Lab Attestation statement: I reviewed the patient's lab results. As per [facility] 07/10/23 06:32 07/10/23 06:32 Labs: Lab Results 07/10/23 07/10/23 Range/Units 06:32 08:38 WBC 13.3 H (4.8-10.8) X10*3/uL RBC 5.71 D (4.60-5.80) X10*6/uL Hgb 13.2 L (14.0-18.0) g/dl Hct 43.0 (42.0-52.0) % MCV 75.3 L (80.0-98.0) fL MCH 23.1 L (27.0-33.0) pg MCHC 30.7 L (31.0-36.0) g/dl RDW 23.0 H (11.0-16.0) % Plt Count 272 (160-400) X10*3/uL MPV 8.9 L (9.4-12.4) fL Immature Gran % (Auto) 0.5 H (0.0-0.4) % Neut % (Auto) 79.5 H (45-73) % Lymph % (Auto) 9.9 L (20-40) % Piute % (Auto) 7.4 (2-11) % Eos % (Auto) 2.1 (0-4) % Baso % (Auto) 0.6 (0-2) % Lymph # (Auto) 1.3 (1.2-4.9) X10*3/uL Piute # (Auto) 1.0 (0.1-1.2) X10*3/uL Eos # (Auto) 0.3 (0.0-0.4) X10*3/uL Baso # (Auto) 0.1 (0.0-0.2) X10*3/uL Abs Immat Gran (auto) 0.07 H (0.00-0.03) X10*3/uL Absolute Neuts (auto) 10.6 H (2.0-8.3) x10*3/uL Absolute Nucleated RBC 0.000 (0.0-0.012) X10*3/uL Nucleated RBC % (auto) 0.0 (0.0-0.2) /100WBC Sodium 139 (135-145) mmol/L Potassium 4.7 (3.3-5.1) mmol/L Chloride 102 (96-108) mmol/L Carbon Dioxide 28 (22-29) mmol/L Anion Gap 14 (12-20) BUN 22 H (9-16) mg/dL Creatinine 0.94 (0.5-1.4) mg/dL Estim Creat Clear Calc 63.9 Estimated GFR > 60 Random Glucose 120 H (60-115) mg/dL Calcium 10.0 D (8.4-10.2) mg/dL Total Bilirubin 1.4 H (0.0-1.0) mg/dL AST 15 (5-37) U/L ALT 9 (0-40) U/L Alkaline Phosphatase 74 (39-117) U/L Total Protein 7.5 (6.5-8.0) g/dL Albumin 4.0 (3.5-5.0) g/dL Lipase 17 (8-78) U/L Influenza Type A (PCR) NEGATIVE (Negative) Influenza Type B (PCR) NEGATIVE (Negative) RSV RNA Qual (PCR) NEGATIVE (Negative) SARS-CoV-2 RNA (RT-PCR) NEGATIVE (Negative) Independent Interpretation I performed an independent interpretation of an: Ultrasound and CT Scan Interpretation: Ultrasound shows normal appearing gallbladder with distended fluid-filled stomach. CT abdomen pelvis shows dilated fluid-filled stomach and proximal duodenum with edema of the distal stomach as well as constipation, trace ascites, incidental bladder wall nodule Radiology Impression Discussion of test interpretation with radiology: I have reviewed the radiologist's reading. Radiologist Impression: US/US abdomen limited IMPRESSION: Normal-appearing gallbladder. Distended fluid-filled stomach. CT/CT abdomen pelvis w IV con IMPRESSION: Dilated fluid-filled stomach and proximal duodenum. There is still wall thickening and wall edema of the distal stomach/lower is. Constipation. Trace ascites. Small 4 mm nodule adjacent to the bladder wall at the right lung base. It is uncertain whether this is related to nodular lobulated contour of the prostate gland or could represent a bladder lesion. Follow-up bladder ultrasound or cystoscopy recommended. Tree in bud nodules in the lingula and left lower lobe suggestive of mild airways disease. Fleischner guidelines were followed. External Record Review External record reviewed: Inpatient record, Office record and Outpatient record Prescription Management I considered prescription management with: Pain Medication and Other Discharge Plan Discharge Clinical Impression: Gastric out let obstruction, Abdominal pain Patient Disposition: Home, Self-Care Additional Instructions: You were evaluated in the emergency department for abdominal pain. Your ultrasound and CT scan showed dilation of your stomach as well as constipation. You are being prescribed MiraLax for constipation which you should take daily. You are being prescribed Tramadol for severe pain. You should keep your scheduled surgical appointment on 07/16/23. Return to the emergency department if you develop increasing or severe pain, are unable to tolerate fluids by mouth, have difficulty breathing, develop a fever, or for any other concerning symptoms. Please continue to take your previously prescribed medications and maintain a clear liquid diet. Prescriptions: New polyethylene glycol 3350 [ClearLax] 17 gram/dose powder 17 g PO DAILY Qty: 119 0RF tramadol 50 mg tablet 50 mg PO Q8H PRN (Reason: severe pain (scale score 7-10)) Qty: 6 0RF No Action atorvastatin 20 mg tablet 20 mg PO DAILY omeprazole 40 mg Capsule,Delayed Release(Dr/Ec) 40 mg PO BID@0630,1630 Qty: 120 0RF
[2023-07-10 09:03] VITALS: BP 142/79; PULSE 80; RESP 14; TEMP 36.9; O2SAT 99
[2023-07-10] MEDS: 0.9 % Sodium Chloride 1,000 ML 999 ML IV (09:11)
[2023-07-10] MEDS: ondansetron HCL 4 MG/2 ML VIAL IVPUSH (09:11)
[2023-07-10] MEDS: Morphine Sulfate 2 MG/ML CARTRIDGE IVPUSH ×2 (09:12→16:10)
[2023-07-10 09:33] LABS: Influenza A PCR NEGATIVE (Negative); Influenza B PCR NEGATIVE (Negative); Resp Syncy Virus RNA Qual PCR NEGATIVE (Negative); SARS COV2 PCR INHOUSE NEGATIVE (Negative)
[2023-07-10 11:36] VITALS: BP 119/71; PULSE 75; RESP 18; TEMP 37.3; O2SAT 100
--- NOTE | 2023-07-10 12:16 | PC.NURSE ---
this RN resumed care of pt at this time. a&ox4. vss and up to date. pt c/o 8 RUQ pain at this time. states he has been feeling nauseous but denies any episodes of vomiting/diarrhea. new 20gIV placed in the right AC so CT w/ contrast can be obtained. pt aware of plan of care in regards to having scans completed/remaining NPO until GI consult is completed. no sob/wob noted. respirations even and unlabored. bedside for support. plan of care ongoing. call rayo placed within reach.
[2023-07-10 14:24] VITALS: BP 95/54; PULSE 78; RESP 16; TEMP 37.2; O2SAT 97
[2023-07-10 16:00] VITALS: BP 100/55; PULSE 73; RESP 18; TEMP 37; O2SAT 97
[2023-07-10] MEDS: polyethylene glycoL 3350 17 GM POWD.PACK PO (16:10)
--- NOTE | 2023-07-10 16:15 | PC.NURSE ---
patient a&ox3, vss, family at bedside, pt c/o 09/20 abd pain- pt medicated for pain per order, call rayo within reach, will continue to monitor
[2023-07-10 16:55] VITALS: BP 100/55; PULSE 73; RESP 18; TEMP 37; O2SAT 97
== END 2023-07-10 16:56 | disposition home or self-care (01) ==
PROVIDERS: Registered Nurse Emergency; Emergency Provider Student in an Organized Health Care Education/Training Program; PCP Physician Assistant Medical
DX: K31.1 Adult hypertrophic pyloric stenosis (principal); R10.2 Pelvic and perineal pain; R11.0 Nausea; R06.02 Shortness of breath; Z11.52 Encounter for screening for COVID-19; Z20.822 Contact with and (suspected) exposure to COVID-19; Z79.899 Other long term (current) drug therapy
CPT/HCPCS: 0241U; 36415; 74177; 76705; 80053; 83690; 85025; 96361; 96374; 96375; 96376; 99284; 99285; J2270; J2405